=== PATIENT | female | born 1930 | race Caucasian/White ===

== ENCOUNTER 2018-03-28 02:19 | Inpatient (IN) ==
[2018-03-28 03:37] VITALS: BMI 16.9
[2018-03-28] MEDS ORDERED: ONDANSETRON 4 MG/2 ML INJECTION IVP ONE (04:46)
[2018-03-28] MEDS ORDERED: ACETAMINOPHEN 500 MG TABLET PO ONE (04:46)
--- NOTE | 2018-03-28 04:56 | History & Physical Report ---
History of Present Illness Date: 03/28/18 Chief complaint: hip pain HPI: The pt is a 88 yo who was trying to answer the phone around midnight, fell and landed on a table. She denies any LOC, but does have head trauma, small 1 cm head laceration. She denies frequency of falling. Presently no other complaints. Review of Systems All systems PM: 10-point ROS was reviewed, no additional remarkable complaints except - Constitutional Constitutional: Present: as per HPI. Absent: anorexia - Cardiovascular Cardiovascular: Present: palpitations. Absent: dyspnea on exertion, edema - Gastrointestinal Gastrointestinal: Absent: abdominal pain, diarrhea, nausea Past Medical History Medical History: Medical History (Last Updated 03/28/18 @ 04:55 by Koko Martin MD) Atrial fibrillation CHF (congestive heart failure) Osteoarthritis Valvular heart disease Family History: No Significant Family History (M- [place]) - Social History Smoking status: Never smoker Substance use type: does not use Alcohol intake: never Alcohol intake frequency: does not drink Housing: apartment Household members: none Medications Allergies Allergy/AdvReac Type Severity Reaction Status Date / Time iodine Allergy Vomiting Verified 03/28/18 04:50 Sulfa (Sulfonamide Allergy Verified 03/28/18 04:51 Antibiotics) Exam Vital Signs: Temperature 97.8 F 03/28/18 03:36 Pulse Rate 98 03/28/18 03:46 Blood Pressure 145/98 H 03/28/18 03:36 Pulse Oximetry 97 03/28/18 03:36 Height/Weight/BMI: Height 1.63 m Weight 44.6 kg Body Mass Index 16.9 - Constitutional Present: no acute distress - Routine HEENT Exam Head: Present: scalp tenderness - Routine Neck Exam Present: supple - Routine Respiratory Exam Present: CTA bilaterally - Routine Cardiovascular Exam Present: no murmur, irregular rhythm. Absent: RRR - Routine Abdominal Exam Present: soft, normoactive bowel sounds - Routine Extremities Exam Present: no edema Assessment and Plan (1) Hip fracture requiring operative repair Current visit: Yes Status: Acute (2) A-fib Current visit: Yes Status: Acute (3) CHF (congestive heart failure) Current visit: Yes Status: Acute Assessment and Plan: The pt is a transfer from [facility], will place on IVF, NPO, consulted Dr. Soria, ortho, pain controll, monitor vitals, cont home meds. will probably need inpt rehab once medically stable DVT Prophylaxis: SCD's GI Prophylaxis: Protonix Resuscitation Status: Full Code - Physician Narrative Narrative: Date: 03/28/18 Time: 045 Hospital Course Summary Disclaimer: The visit summary below is not to be considered part of the above Progress Note.
[2018-03-28] MEDS ORDERED: NS 1,000 ML IV SCH (05:00)
[2018-03-28] MEDS ORDERED: ONDANSETRON 4 MG/2 ML INJECTION IVP PRN (06:00)
[2018-03-28] MEDS ORDERED: ACETAMINOPHEN 500 MG TABLET PO PRN (06:00)
--- NOTE | 2018-03-28 08:20 | Orthopedic Consult Note ---
Orthopedic Consultation HPI - Consultation Info Consult Date: 03/29/18 Attending Physician: Mariah Hester MD - History of Present Illness Mrs. Naranjo is a pleasant 88 y/o female. She was up at midnight last night to answer the phone and fell hitting a table then floor. She denies any dizziness, lightheadedness, or CP prior to falling. She feels she was "attacked by something spiritual' which caused the fall. She does live alone, is very active and walks a mile a day. She was transferred from [facility] for surgical treatment of right hip fracture. She is a patient of Dr. Haro, recent diagnosis of Afib and is on Eliquis. HR 100-120s. Patient reports MVP and MR as well. History of pneumonia years ago and asthma. Not on inhalers. Patient does not use oxygen at home, is requiring 2LNC here, denies SOA. Review of Systems - Constitutional Constitutional: Absent: chills, fever(s), dizziness - Cardiovascular Cardiovascular: Absent: chest pain - Respiratory Respiratory: Absent: cough - Gastrointestinal Gastrointestinal: Absent: change in bowel habits, diarrhea, nausea - Musculoskeletal Musculoskeletal: Present: as per HPI PFSH Patient Stated Medical History Dental Problems Yes: implants Glaucoma Yes: right eye Cardiac Arrhythmia Yes Coronary Artery Disease Yes Hypertension Yes Valvular Heart Disease Yes Pneumonia Yes Hepatitis Yes Clinic Medical History (Last Updated 03/28/18 @ 04:55 by Koko Martin MD) Osteoarthritis (Acute Medical) - Social History Smoking status: Never smoker Substance use type: does not use Alcohol intake: never Alcohol intake frequency: does not drink Housing: apartment Household members: none Medications Home Medications Medication Instructions Recorded Confirmed Type Amlodipine 2.5 mg PO AM 03/28/18 03/28/18 History Brimonidine 0.2% Eye Drops 1 drop OP BID 03/28/18 03/28/18 History [Alphagan 0.2% Eye Drops] Digoxin 0.125 mg PO AM 03/28/18 03/28/18 History Eliquis 2.5 mg PO BID 03/28/18 03/28/18 History Fish Oil 1,000 mg Softgel 1,000 mg PO AM 03/28/18 03/28/18 History Glucosamine 1 tab PO BID 03/28/18 03/29/18 History Metoprolol Tartrate 25 mg PO BID 03/28/18 03/28/18 History Vit C/Ascorbate Calcium,Sodium 500 mg PO AM 03/28/18 03/28/18 History Aspirin 1 tab PO DAILY 03/29/18 03/29/18 History Cholecalciferol (Vitamin D3) 1 cap PO DAILY 03/29/18 03/29/18 History [Vitamin D3] Cyanocobalamin (Vitamin B-12) 500 mcg PO DAILY 03/29/18 03/29/18 History [B-12] Allergies Allergy/AdvReac Type Severity Reaction Status Date / Time iodine Allergy Vomiting Verified 03/28/18 04:50 Sulfa (Sulfonamide Allergy Verified 03/28/18 04:51 Antibiotics) Exam - Constitutional Vital Signs: Temperature 97.8 F 03/28/18 03:36 Pulse Rate 102 H 03/28/18 08:00 Respiratory Rate 16 03/28/18 08:00 Blood Pressure 161/102 H 03/28/18 08:00 Pulse Oximetry 93 03/28/18 08:00 General: cooperative, no acute distress, frail appearing Orientation: alert, oriented x3 - RLE Postoperative Appearance: neurovascullary intact to extremities, other ( Tenderness to palpation right lateral hip, compartments soft) Skin: no rashes or lesions noted Neurological: no deficits Vascular: dorsalis pedis pulse within normal limits - Labs Result Diagrams: 03/29/18 04:23 03/29/18 04:23 Abnormal lab results 03/28/18 03/28/18 03/28/18 Range/Units 05:04 05:04 05:04 Neut % (Auto) 82.2 H (33-66) % Lymph % (Auto) 11.4 L (23-45) % Neut # (Auto) 8.6 H (1.8-7.7) T/MM3 Abs Immat Gran (auto) 0.04 H (0.00-0.03) T/MM3 INR (0.92-1.18) Potassium 3.4 L (3.6-5) MEQ/L Carbon Dioxide 31 H (22-30) MEQ/L Creatinine 0.5 L (0.7-1.2) mg/dL Ur Specific [place] 1.010 L (1.015-1.025) Urine Occult Blood 1+ A (NEGATIVE) Urine RBC 3-5 H (0-3) /HPF 03/28/18 Range/Units 05:04 Neut % (Auto) (33-66) % Lymph % (Auto) (23-45) % Neut # (Auto) (1.8-7.7) T/MM3 Abs Immat Gran (auto) (0.00-0.03) T/MM3 INR 1.23 H (0.92-1.18) Potassium (3.6-5) MEQ/L Carbon Dioxide (22-30) MEQ/L Creatinine (0.7-1.2) mg/dL Ur Specific [place] (1.015-1.025) Urine Occult Blood (NEGATIVE) Urine RBC (0-3) /HPF H & H 03/28/18 Range/Units 05:04 Hgb 14.4 (12-16) GM/DL Hct 42.9 (36-46) % Coagulation 03/28/18 Range/Units 05:04 INR 1.23 H (0.92-1.18) Impression and Recommendation (1) Fracture of femoral neck, right, closed Current visit: Yes Status: Acute Dr. Soria discussed surgical option with hemiarthroplasty. Risks and complications of surgery were discussed as well. Patient's last dose of Eliquis was last night. Will post-pone surgery until tomorrow. Patient NPO after 0900 tomorrow with clear liquid breakfast. Hospital Course Summary Disclaimer: The visit summary below is not to be considered part of the above Progress Note.
--- NOTE | 2018-03-28 09:21 | Cardiology Consult Note ---
<Kayli Sanon - Last Filed: 03/29/18 09:17> History of Present Illness Consult date: 03/28/18 Requesting physician: Mariah Hester Consult reason: pre-op evaluation Chief complaint: hip fracture History of present illness: Connie is a 88 year old female patient of Dr. Haro with a history of recently diagnosed atrial fibrillation on Eliquis, CAD, HTN, mitral valve prolapse and regurgitation who was up at midnight last night to answer the phone and fell hitting a table then the floor. She is unsure why she fell. She does live alone , is very active and walks a mile a day. She was transferred from [facility] for surgical treatment of right hip fracture. Dr. Heck is consulted for evaluation of surgical risk pre-operatively and we appreciate the consult. Records obtained from Dr. Haro's office: -Echo 03/07/2018: EF 55-60%, mild LVH, mitral valve prolapse of anterior leaflet , mild mitral regurgitation, moderate tricuspid regurgitation, mildly elevated PA pressure 30-35mmHg, atrial fibrillation. -Nuclear Stress: Good exercise capacity, negative for angina, atrial fibrillation with RVR, without diagnostic ischemic changes on EKG, nonspecific ST changes are noted at baseline, normal post stress EF. -Carotid duplex:Right ICA 30% stenosis, Left ICA 20-25% stenosis She is examined in her room on the Surgical unit. She reports having the flu over the winter which has really decreased her exercise tolerance. She denies recent illness, fever, chills, cough, sore throat, chest pain, dyspnea, N/V/D. She denies lightheadedness, dizziness or syncope prior to fall. States she felt as if she were pushed down or "attacked" by something. Review of Systems - Constitutional Constitutional: Present: as per HPI - EENMT Eyes: Absent: change in vision Balance: Absent: vertigo Mouth/Throat: Present: as per HPI - Cardiovascular Cardiovascular: Absent: chest pain, syncope, dyspnea on exertion, orthopnea, edema, heart murmur Rhythm: Present: abnormal rhythm Vascular: Absent: pedal edema - Respiratory Respiratory: Present: as per HPI - Gastrointestinal Gastrointestinal: Present: as per HPI - Genitourinary Genitourinary: Absent: dysuria - Integumentary/Breasts Integumentary: Absent: rash - Neurological Neurological: Absent: dizziness - Endocrine Endocrine: Present: palpitations PFSH Patient Stated Medical History Dental Problems Yes: implants Glaucoma Yes: right eye Cardiac Arrhythmia Yes AFib diagnosed 02/17/18 Coronary Artery Disease Yes Hypertension Yes Valvular Heart Disease Yes MV prolapse/regurg Pneumonia Yes Hepatitis Yes breast cancer Yes Cystitis Yes Clinic Medical History (Last Updated 03/28/18 @ 04:55 by Koko Martin MD) Osteoarthritis (Acute Medical) Surgical History: Appendectomy 1965. cystoscopy and bladder repair. D&C x3. Lumpectomy w/radiation 1996. Tonsillectomy Family History: Heart disease (unknown- Mother and Sister) - Social History Smoking status: Never smoker Substance use type: does not use Alcohol intake: never Alcohol intake frequency: does not drink Housing: house Household members: none (3 grandchildren were staying with her at the time of her fall) Current occupational status: retired Medications Home Medications Medication Instructions Recorded Confirmed Type Amlodipine 2.5 mg PO AM 03/28/18 03/28/18 History Brimonidine 0.2% Eye Drops 1 drop OP BID 03/28/18 03/28/18 History [Alphagan 0.2% Eye Drops] Digoxin 0.125 mg PO AM 03/28/18 03/28/18 History Eliquis 2.5 mg PO BID 03/28/18 03/28/18 History Fish Oil 1,000 mg Softgel 1,000 mg PO AM 03/28/18 03/28/18 History Glucosamine 1 tab PO BID 03/28/18 03/29/18 History Metoprolol Tartrate 25 mg PO BID 03/28/18 03/28/18 History Vit C/Ascorbate Calcium,Sodium 500 mg PO AM 03/28/18 03/28/18 History Aspirin 1 tab PO DAILY 03/29/18 03/29/18 History Cholecalciferol (Vitamin D3) 1 cap PO DAILY 03/29/18 03/29/18 History [Vitamin D3] Cyanocobalamin (Vitamin B-12) 500 mcg PO DAILY 03/29/18 03/29/18 History [B-12] Allergies Allergy/AdvReac Type Severity Reaction Status Date / Time iodine Allergy Vomiting Verified 03/28/18 04:50 Sulfa (Sulfonamide Allergy Verified 03/28/18 04:51 Antibiotics) Exam Vital signs: Temperature 98.0 F 03/28/18 08:00 Pulse Rate 102 H 03/28/18 08:00 Respiratory Rate 16 03/28/18 08:00 Blood Pressure 161/102 H 03/28/18 08:00 Pulse Oximetry 93 03/28/18 08:00 - Constitutional no acute distress, cachectic, cooperative - Routine HEENT Exam Head: Present: normocephalic ENT: Present: mucous membranes dry - Routine Neck Exam Present: carotid bruit (right). Absent: JVD - Routine Chest/Breast/Axilla Exam Chest wall: Absent: tenderness - Routine Respiratory Exam Present: CTA bilaterally, diminished air movement. Absent: rales, wheezes - Routine Cardiovascular Exam Present: tachycardia, irregularly irregular - Routine Abdominal Exam Present: soft, non tender - Routine Extremities Exam Present: no edema - Routine Skin Exam Present: intact, dry, warm - Routine Neurological Exam Present: alert, oriented X3 - Routine Psychiatric Exam Present: normal affect, normal thought process Results 03/28/18 05:04 03/28/18 05:04 Coagulation 03/28/18 Range/Units 05:04 APTT 29.9 (24-36) SEC CBC 03/28/18 Range/Units 05:04 WBC 10.4 (4.5-11.0) T/MM3 RBC 4.92 (4.00-5.20) M/MM3 Hgb 14.4 (12-16) GM/DL Hct 42.9 (36-46) % Plt Count 209 (130-400) T/MM3 Neut # (Auto) 8.6 H (1.8-7.7) T/MM3 Lymph # (Auto) 1.2 (1-4.8) T/MM3 [place] # (Auto) 0.6 (0-0.8) T/MM3 Eos # (Auto) 0.0 (0-0.5) T/MM3 Baso # (Auto) 0.0 (0-0.2) T/MM3 Comprehensive Metabolic Panel 03/28/18 Range/Units 05:04 Sodium 137 (136-146) MEQ/L Potassium 3.4 L (3.6-5) MEQ/L Chloride 99 (98-107) MEQ/L Carbon Dioxide 31 H (22-30) MEQ/L BUN 13.0 (7-17) MG/DL Creatinine 0.5 L (0.7-1.2) mg/dL Glucose 108 (65-110) MG/DL Calcium 8.7 (8.4-10.2) MG/DL Intake and Output 03/27/18 03/28/18 03/28/18 22:59 06:59 14:59 Output Total 375 / 375 Balance -375 / -375 Output: Urine Amount (Catheter) 375 / 375 Other: Urine Appearance Clear Urine Color Yellow Urine Odor Normal Weight 98 lb 5.219 oz 104 lb 0.931 oz Patient Weight 03/29/18 06:59 Weight 104 lb 0.931 oz - Imaging and Cardiology Echo: pending Assessment and Plan - Assessment and Plan (1) Hip fracture requiring operative repair Problem details: Right subcapital hip fracture Current visit: Yes Status: Acute Patient had recent Nuclear stress test and echo at her 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 There was no evidence of ischemia on stress test. - She has not been having chest pain, pressure or tightness with her daily exercise. - She is a moderate risk due to past cardiac history including NM and CAD, however it is okay to proceed with planned surgical repair of fracture per ortho team and we will follow along should complications arise. (2) Atrial fibrillation with RVR Problem details: Newly diagnosed 01/2018 Current visit: Yes Status: Acute Recently diagnosed. - HR 90s-low 100s, give Metoprolol 2.5mg IV x1 for rate control - Last took Eliquis before bed last night. - holding for OR (3) Atherosclerotic heart disease of [place] coronary artery without angina pectoris Current visit: Yes Status: Chronic condition is stable. continue current therapy, risk management (4) Essential (primary) hypertension Current visit: Yes Status: Chronic continue Amlodipine post-operatively. (5) Mitral valvular prolapse Current visit: Yes Status: Chronic (6) Mitral valve regurgitation Current visit: Yes Status: Chronic - Assessment and Plan Hip fracture: Patient had recent Nuclear stress test and echo at her 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 There was no evidence of ischemia on stress test. - She has not been having chest pain, pressure or tightness with her daily exercise. - She is a moderate risk due to past cardiac history including NM and CAD, however it is okay to proceed with planned surgical repair of fracture per ortho team and we will follow along should complications arise. AFib with RVR: Recently diagnosed. - HR 90s-low 100s, give Metoprolol 2.5mg IV x1 for rate control - Last took Eliquis before bed last night. - holding for OR Thank you for the opportunity to participate in the care of this patient, we will follow along with you. Hospital Course Summary Disclaimer: The visit summary below is not to be considered part of the above Progress Note. <Binta Hecksein - Last Filed: 03/30/18 18:11> [facility] Patient Stated Medical History Cerebrovascular Accident No Paralysis No Seizures No Syncope No Dental Problems Yes: implants Glaucoma Yes: right eye Angina No Cardiac Arrhythmia Yes Congestive Heart Failure No Coronary Artery Disease Yes: previous NM Heart Murmur No Hypertension Yes Hypotension No Myocardial Infarction No Rheumatic Fever No Valvular Heart Disease Yes Other Cardiology No Asthma No Bronchitis No Chronic Obstructive Pulmonary No Disease (COPD) Pneumonia Yes Pulmonary Edema No Pulmonary Embolism No Sleep Apnea No Tuberculosis No Other Respiratory No Diabetes Mellitus Type 1 No Diabetes Mellitus Type 2 No Cirrhosis No Gastroesophageal Reflux No Disease Gastrointestinal Bleeding No Hepatitis No Hiatal Hernia No Obstructive Bowel No Ulcer No Other GI No Other Musculoskeletal No Depression No Clinic Medical History (Last Updated 03/28/18 @ 04:55 by Koko Martin MD) Atrial fibrillation with RVR (Acute Medical) Newly diagnosed 01/2018 Exam Vital signs: Temperature 98.4 F 03/30/18 15:40 Pulse Rate 66 03/30/18 15:40 Respiratory Rate 14 03/30/18 15:40 Blood Pressure 130/70 03/30/18 15:40 Pulse Oximetry 91 03/30/18 15:40 Results 03/30/18 04:19 03/30/18 04:19 CBC 03/30/18 Range/Units 04:19 WBC 10.1 (4.5-11.0) T/MM3 RBC 4.38 (4.00-5.20) M/MM3 Hgb 12.8 (12-16) GM/DL Hct 38.5 (36-46) % Plt Count 189 (130-400) T/MM3 Neut # (Auto) 7.1 (1.8-7.7) T/MM3 Lymph # (Auto) 2.0 (1-4.8) T/MM3 [place] # (Auto) 0.8 (0-0.8) T/MM3 Eos # (Auto) 0.2 (0-0.5) T/MM3 Baso # (Auto) 0.0 (0-0.2) T/MM3 Comprehensive Metabolic Panel 03/30/18 Range/Units 04:19 Sodium 135 L (136-146) MEQ/L Potassium 3.5 L (3.6-5) MEQ/L Chloride 104 (98-107) MEQ/L Carbon Dioxide 27 (22-30) MEQ/L BUN 7.0 (7-17) MG/DL Creatinine 0.4 L (0.7-1.2) mg/dL Glucose 89 (65-110) MG/DL Calcium 8.0 L (8.4-10.2) MG/DL Intake and Output 03/30/18 03/30/18 03/30/18 06:59 14:59 22:59 Intake Total 600 / 600 380 / 380 Output Total 960 / 960 Balance -360 / -360 380 / 380 Intake: IV 100 / 100 Cefazolin 1 g In Ns 100 ml @ 100 / 100 200 mls/hr IV Q8H [facility] Rx#: [id number] Oral 500 / 500 380 / 380 Output: Urine Amount (Catheter) 960 / 960 Other: Urine Appearance Clear Cloudy Urine Color Pale Yellow Urine Odor Normal Stool Color Brown Stool Consistency Soft Size of Bowel Movement Moderate # Voids 1 1 # Bowel Movements 1 Weight 46.8 kg Patient Weight 03/31/18 06:59 Weight 46.8 kg Assessment and Plan - Attestation Attestation Narrative: 03/30/18 18:06 Recommendation After examining the patient I agree with the above assessment. I am involved in the formulation of the patient's plan of care. - Assessment and Plan (1) Hip fracture requiring operative repair Problem details: Right subcapital hip fracture Current visit: Yes Status: Acute (2) Atrial fibrillation with RVR Problem details: Newly diagnosed 01/2018 Current visit: Yes Status: Acute (3) Atherosclerotic heart disease of [place] coronary artery without angina pectoris Current visit: Yes Status: Chronic (4) Essential (primary) hypertension Current visit: Yes Status: Chronic (5) Mitral valvular prolapse Current visit: Yes Status: Chronic (6) Mitral valve regurgitation Current visit: Yes Status: Chronic Hospital Course Summary Disclaimer: The visit summary below is not to be considered part of the above Progress Note.
[2018-03-28] MEDS ORDERED: METOPROLOL 5mg/5ml INJECTION IVP ONE (10:02)
--- NOTE | 2018-03-28 10:11 | History & Physical Report ---
History of Present Illness Date: 03/28/18 Chief complaint: R hip fracture HPI: (Pt admitted under telemedicine doctor - see his H&P for further info) The pt is a 88 yo female who got up out of bed to answer the phone around midnight, fell and landed on a table. She denies any LOC, but does have head trauma, small 1 cm head laceration. She denies frequency of falling. She states she felt like she was pushed backward, doesn't feel like she tripped. Didn't feel lightheaded or dizziness. Feels like it was something "spiritual" that pushed her. (Pt spent her life doing [place] and has a very strong belief in "the Lord, " which she frequently talks about.) She is on Eliquis, Metoprolol and dig for atrial fibrillation and amlodipine for HTN. She states she used to walk a mile every day prior to this winter, but she had influenza, and since then, she has never regained her energy. She did say she felt very well yesterday and accomplished a lot. Didn't take melatonin prior to hs which she sometimes does. Her family is currently visiting from [place] and they came to check on her after they heard her fall. EMS was called and pt was transported to [facility] and then [place] [facility] [place] Review of Systems All systems PM: 10-point ROS was reviewed, no additional remarkable complaints except (exudate on tongue (ongoing), dry mouth, R hip pain, chronic LE edema) Past Medical History Medical History: Medical History (Last Updated 03/28/18 @ 04:55 by Koko Martin MD) Atrial fibrillation with RVR Newly diagnosed 01/2018 Medical History Updates: H/o [place] (age 60's), HTN, h/o mild asthma, breast cancer , MVP, mild mitral regurgitation Surgical History: Appendectomy 1965. cystoscopy and bladder repair. D&C x3. L Lumpectomy w/radiation 1996. Tonsillectomy Family History: Father- allergies. Drowned in the [place] (pulled out into the current). Mother - a fib. of old age. 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 Yu - PCP ([place]) Medications Home Medications Medication Instructions Recorded Confirmed Type Amlodipine 2.5 mg PO AM 03/28/18 03/28/18 History Brimonidine 0.2% Eye Drops 1 drop OP BID 03/28/18 03/28/18 History [Alphagan 0.2% Eye Drops] Digoxin 0.125 mg PO AM 03/28/18 03/28/18 History Eliquis 2.5 mg PO BID 03/28/18 03/28/18 History Fish Oil 1,000 mg Softgel 1,000 mg PO AM 03/28/18 03/28/18 History Glucosamine PO BID 03/28/18 History Metoprolol Tartrate 25 mg PO BID 03/28/18 03/28/18 History Vit C/Ascorbate Calcium,Sodium 500 mg PO AM 03/28/18 03/28/18 History Allergies Allergy/AdvReac Type Severity Reaction Status Date / Time iodine Allergy Vomiting Verified 03/28/18 04:50 Sulfa (Sulfonamide Allergy Verified 03/28/18 04:51 Antibiotics) Exam Vital Signs: Temperature 98.0 F 03/28/18 08:00 Pulse Rate 102 H 03/28/18 08:00 Respiratory Rate 16 03/28/18 08:00 Blood Pressure 161/102 H 03/28/18 08:00 Pulse Oximetry 93 03/28/18 08:00 Height/Weight/BMI: Height 1.63 m Weight 47.2 kg Body Mass Index 16.9 - Constitutional Present: no acute distress, well developed, thin - Routine HEENT Exam Head: Present: normocephalic, atraumatic Eye: Present: EOMI, PERRL ENT: Present: mucous membranes dry, oropharynx clear Comments: brown exudate on tongue and slight exudate on hard palate as well. Very dry lips. - Routine Neck Exam Present: supple. Absent: lymphadenopathy, thyromegaly - Routine Respiratory Exam Present: CTA bilaterally. Absent: dyspnea, wheezes - Routine Cardiovascular Exam Present: no murmur, tachycardia, irregular rhythm - Routine Abdominal Exam Present: soft, normoactive bowel sounds. Absent: tenderness, distended - Routine Extremities Exam Present: edema (2+ b/l R>L), normal capillary refill - Routine Skin Exam Present: dry, warm - Routine Neurological Exam Present: alert, CN II-XII intact, normal speech - Routine Psychiatric Exam Present: normal affect, cooperative Results - Labs CBC & Chem 7: 03/28/18 05:04 03/28/18 05:04 Assessment and Plan (1) Hip fracture requiring operative repair Problem details: Right subcapital hip fracture Current visit: Yes Status: Acute (2) A-fib Current visit: Yes Status: Acute (3) CHF (congestive heart failure) Current visit: Yes Status: Acute Assessment and Plan: Assessment R hip fracture Chronic atrial fibrillation-on Eliquis HTN Osteoarthritis Mild elevation of TSH on admission Mild hypokalemia on admission (3.4) Thrush vs bacterial overgrowth vs black hairy tongue vs other - (pt declines tx at this time) Plan Admit, IP for hip repair by Dr. Soria. Stay expected to exceed 2 overnights given surgical intervention and her age and comorbidities. Dr Soria planning for surgery today at noon. Cardiology consult for surgical clearance. Discussed with Kayli Sanon APRN who reviewed recent cardiac testing from Dr. Haro's office. She states pt is cleared from a cardiac standpoint. Patient has Hernandez cath. UA - no infection. IVF's - NS at 75ml/hr. All home meds currently on hold. F-u w/ PCP re: TSH. Will follow potassium level. Most recent dose of Eliquis was last evening. BP and pulse are elevated. Metoprolol 2.5mg IV ordered by cardiology. SCD's for VTE ppx Pt requests to be a full code. Names her son, Dilshad, and her neighbors, Steve and Deena Davalos, as alternative decision makers. PCP - Dr. Yu in [place]. DVT Prophylaxis: SCD's Resuscitation Status: Full Code - Physician Narrative Physician: Mariah Hester MD Narrative: Date: 03/28/18 Time: 7314 I have independently evaluated and examined this patient. I reviewed the chart, the patient's history, and the PHOTOGRAPHER STILL/PA's documented findings as above. We discussed and formulated the assessment and plan as above with additions as below: Mrs. Naranjo was seen this morning; she transferred from the [place] emergency room where a right subcapital hip fracture was identified after the patient fell getting up to answer the phone a little after midnight. At the time of my assessment she was complaining of pain in the left lateral chest indicating that she has pain in her chest occasionally. She denied dyspnea, pleuritic pain, injury to her left chest wall with fall, stabbing pain, pressure in her chest, reflux, or heartburn. She indicated she thinks she may have had a mild heart attack many years ago when she was working in [place] ( patient seems slightly confused at the time-possibly pain medication induced). Patient attributes chest wall pain to prior lumpectomy. Recent echocardiogram and nuclear stress test of 03/09/18 reviewed-no evidence of ischemia on study. New -onset atrial fibrillation/flutter in January, known hypertension, history MVP and mild MR/TR. History of breast cancer treated with lumpectomy. Slightly confused elderly female, cachectic Respirations nonlabored, good airflow, breath sounds clear anteriorly Irregular cardiac rhythm, S1-S2 Tender to palpation lateral to the right breast. Sensation intact 4 extremities, pusher runner symmetric, dorsiflex/plantar flexes at ankles bilaterally. 2 EKGs reviewed by myself-first reveals atrial flutter with rate of approximately [address]/T changes; 2nd was obtained after onset of chest pain and again revealed atrial fibrillation/flutter with rate 72 and waveforms were unchanged. Chest x-ray reviewed by myself demonstrating borderline cardiomegaly but no acute pulmonary changes, possibly some scarring in the lower lungs. From [place] reviewed-sodium 131; repeat sodium on arrival in no 137, potassium 3.4. INR 1.23 (on Eliquis). Hip fracture, right Atrial fibrillation/flutter Atypical chest pain, chest wall History of breast cancer Stable to proceed with surgery recognizing that she is on Eliquis and had a dose yesterday evening. This was discussed with Dr. Soria and increased risk of bleeding if proceed with surgery today is being discussed with family before timing of surgery is definitively planned. Replace potassium IV. Hospital Course Summary Disclaimer: The visit summary below is not to be considered part of the above Progress Note. Hospital Course: 03/28/18 Admit, IP for hip repair by Dr. Soria. Stay expected to exceed 2 overnights given surgical intervention and her age and comorbidities. Dr Soria planning for surgery today at noon. Cardiology consult for surgical clearance. Discussed with Kayli Sanon APRN who reviewed recent cardiac testing from Dr. Haro's office. She states pt is cleared from a cardiac standpoint. Patient has Hernandez cath. UA - no infection. IVF's - NS at 75ml/hr. All home meds currently on hold. Most recent dose of Eliquis was last evening. F-u w/ PCP re: TSH. Will follow K+ level/replace IV. BP and pulse are elevated. Metoprolol 2.5mg IV ordered by cardiology. SCD's for VTE ppx Pt requests to be a full code. Names her son, Dilshad, and her neighbors, Steve and Deena Davalos, as alternative decision makers. PCP - Dr. Yu in [place].
--- NOTE | 2018-03-28 10:39 | Progress Note ---
- Date 03/28/18 Objective Vital signs: Temperature 98.0 F 03/28/18 08:00 Pulse Rate 102 H 03/28/18 08:00 Respiratory Rate 16 03/28/18 08:00 Blood Pressure 161/102 H 03/28/18 08:00 Pulse Oximetry 93 03/28/18 08:00 Height/Weight/BMI: Height 1.63 m Weight 47.2 kg Body Mass Index 16.9 - Constitutional Present: no acute distress, well developed, thin - Routine HEENT Exam Head: Present: normocephalic, atraumatic Comments: brown coating on tongue with slight brownish exudate on roof of mouth - Routine Respiratory Exam Present: CTA bilaterally. Absent: wheezes - Routine Cardiovascular Exam Present: no murmur, tachycardia, irregularly irregular - Routine Abdominal Exam Present: soft, non distended, non tender - Routine Extremities Exam Present: edema (2+ b/l R>L), normal capillary refill - Routine Skin Exam Present: dry, warm - Routine Neurological Exam Present: alert, normal speech. Absent: altered mental status, facial asymmetry - Routine Lymphatic Exam Lymphatic: Absent: adenopathy - Routine Psychiatric Exam Present: normal affect, cooperative Results - Labs CBC & Chem 7: 03/28/18 05:04 03/28/18 05:04 Assessment and Plan (1) Hip fracture requiring operative repair Current visit: Yes Status: Acute (2) A-fib Current visit: Yes Status: Acute (3) CHF (congestive heart failure) Current visit: Yes Status: Acute Assessment and Plan: Assessment L hip fracture Chronic atrial fibrillation-on Eliquis HTN Osteoarthritis Mild elevation of TSH on admission Mild hypokalemia on admission (3.4) Thrush vs bacterial overgrowth vs black hairy tongue vs other - (pt declines tx at this time) Plan Admit, IP for hip repair by Dr. Soria. Stay expected to exceed 2 overnights given surgical intervention and her age and comorbidities. Dr Soria planning for surgery today at noon. Cardiology consult for surgical clearance. Discussed with Kayli Sanon APRN who reviewed recent cardiac testing from Dr. Haro's office. She states pt is cleared from a cardiac standpoint. Patient has Hernandez cath. UA - no infection. IVF's - NS at 75ml/hr. All home meds currently on hold. Most recent dose of Eliquis was last evening. BP and pulse are elevated. Metoprolol 2.5mg IV ordered by cardiology. SCD's for VTE ppx Pt requests to be a full code. Names her son, Dilshad, and her neighbors, Dima Davalos, as alternative decision makers. PCP - Dr. Yu in [place]. - Physician Narrative Narrative: Date: 03/28/18 Time: 1036 Hospital Course Summary Disclaimer: The visit summary below is not to be considered part of the above Progress Note. Hospital Course: 03/28/18 Admit, IP for hip repair by Dr. Soria. Stay expected to exceed 2 overnights given surgical intervention and her age and comorbidities. Dr Soria planning for surgery today at noon. Cardiology consult for surgical clearance. Discussed with Kayli Sanon APRN who reviewed recent cardiac testing from Dr. Haro's office. She states pt is cleared from a cardiac standpoint. Patient has Hernandez cath. UA - no infection. IVF's - NS at 75ml/hr. All home meds currently on hold. Most recent dose of Eliquis was last evening. BP and pulse are elevated. Metoprolol 2.5mg IV ordered by cardiology. SCD's for VTE ppx Pt requests to be a full code. Names her son, Dilshad, and her neighbors, Dima Davalos, as alternative decision makers. PCP - Dr. Yu in [place].
--- NOTE | 2018-03-28 11:37 | XRay Report ---
Indication: PAIN XR chest 1V: Comparison: None Technique: AP portable semiupright chest Findings: Heart size is at the upper range of normal without central vascular congestion. Mild chronic appearing lung changes are identified. No significant pleural effusions or focal parenchymal pulmonary consolidation seen. No acute bony findings identified. Impression: Mild cardiac prominence without overt heart failure and no significant acute pulmonary findings. .
--- NOTE | 2018-03-28 14:53 | Echocardiogram ---
DATE OF PROCEDURE: March 28, 2018 REFERRING PHYSICIAN: Dr. Wale Maxwell This is a two-dimensional echo with spectral Doppler, color-flow and M-mode. It was obtained in a patient with atrial fibrillation. Left atrial dimension is normal. Left ventricle end-diastolic dimension is normal. Left ventricle wall thickness is normal. LV systolic function is normal with ejection fraction of about 60%. Right atrium is dilated. Right ventricle is normal. Aortic root dimension is normal. Mitral annulus is calcified. Mitral valve leaflets are sclerotic with no stenosis. Mild bileaflet mitral valve prolapse is present. Mild mitral regurgitation is present. Aortic valve shows fibrocalcific changes with no stenosis or insufficiency. Tricuspid valve shows moderate tricuspid regurgitation with mild pulmonary hypertension with estimated pulmonary artery systolic pressure of 37. Pulmonary valve shows mild pulmonary insufficiency. There is no pericardial effusion. IMPRESSION 1. Normal LV systolic function with ejection fraction of 60%. 2. Mitral annulus calcification with mitral sclerosis, mild mitral regurgitation, and mild bileaflet mitral valve prolapse. 3. Aortic sclerosis. 4. Moderate tricuspid regurgitation with mild pulmonary hypertension with estimated pulmonary artery systolic pressure of 37. 5. Mild pulmonary insufficiency. 6. Right atrial dilation. MTDD
[2018-03-28] MEDS ORDERED: DIGOXIN 0.125 MG PO SCH (15:00)
[2018-03-28] MEDS ORDERED: AMLODIPINE 2.5 MG PO SCH (15:00)
[2018-03-28] MEDS: NS with KCL 20 mEq 1,000 ML IV SCH (15:32)
[2018-03-28] MEDS: MORPHINE SULFATE 10mg/ml VIAL IVP PRN (16:35)
[2018-03-28] MEDS: BRIMONIDINE 0.2% OP SCH (20:16)
[2018-03-28] MEDS: EYE OP SCH (20:16)
[2018-03-28] MEDS ORDERED: METOPROLOL TARTRATE 25 MG PO SCH (21:00)
[2018-03-28] MEDS ORDERED: FALL RISK - PHARMACY CONSULT MC ONE (23:05)
[2018-03-29] MEDS: MORPHINE SULFATE 10mg/ml VIAL IVP PRN (00:18)
[2018-03-29] MEDS: NS with KCL 20 mEq 1,000 ML IV SCH (04:35)
[2018-03-29] MEDS: DIGOXIN 125 MCG TABLET PO SCH (08:10)
[2018-03-29] MEDS: EYE OP SCH ×2 (08:10→20:39)
[2018-03-29] MEDS: BRIMONIDINE 0.2% OP SCH ×2 (08:10→20:39)
[2018-03-29] MEDS ORDERED: AMLODIPINE 2.5 MG PO SCH ×2 (09:00)
--- NOTE | 2018-03-29 09:22 | Cardiology Progress Note ---
<Kayli Sanon M - Last Filed: 03/30/18 15:20> Subjective Principal diagnosis: hip fracture Interval history: Connie is seen in follow up for A Fib RVR and pre-op clearance for hip fracture repair. She is awake in her bed this morning. She denies chest pain or pressure , dyspnea, dizziness, N/V. Exam Vital signs: Temperature 97.3 F 03/29/18 07:06 Pulse Rate 80 03/29/18 08:10 Respiratory Rate 12 03/29/18 07:06 Blood Pressure 155/80 H 03/29/18 07:06 Pulse Oximetry 94 03/29/18 07:06 Inpatient Medications: Generic Name Dose Route Start Last Admin Trade Name Freq PRN Reason Stop Dose Admin Acetaminophen 500 - 1,000 mg 03/28/18 06:00 03/29/18 05:54 Tylenol PO 1,000 mg Q6H PRN Administration Discomfort Amlodipine Besylate 5 mg 03/29/18 09:00 Norvasc PO DAILY [facility] Brimonidine Tartrate 1 drop 03/28/18 21:00 03/29/18 08:10 Alphagan 0.2% Eye Drops OP 1 drop BID [facility] Administration Digoxin 125 mcg 03/29/18 09:00 03/29/18 08:10 Lanoxin PO 125 mcg DAILY [facility] Administration Potassium Chloride/Sodium Chloride 1,000 mls @ 75 mls/hr 03/28/18 15:00 03/29 04:35 Ns With Kcl 20 Meq Premix IV 75 mls/hr .[id number] [facility] Administration Metoprolol Tartrate 25 mg 03/28/18 17:30 03/29/18 08:10 Lopressor PO 25 mg BIDWM [facility] Administration Morphine Sulfate 2 - 10 mg 03/28/18 04:46 03/29/18 00:18 Morphine Sulfate Vial IVP 2 mg Q1H PRN Administration Pain Ondansetron HCl 4 mg 03/28/18 06:00 Zofran IVP Q4H PRN Nausea &/or vomiting Discontinued Medications Generic Name Dose Route Start Last Admin Trade Name Freq PRN Reason Stop Dose Admin Acetaminophen 1,000 mg 03/28/18 04:46 03/28/18 07:12 Tylenol PO 03/28/18 04:47 Not Given PREOP ONE Amlodipine Besylate 2.5 mg 03/29/18 09:00 03/29/18 08:10 Norvasc PO 2.5 mg DAILY [facility] Administration Sodium Chloride 1,000 mls @ 75 mls/hr 03/28/18 05:00 03/28/18 15:32 Normal Saline IV Infused .[id number] [facility] Infusion Metoprolol Tartrate 2.5 mg 03/28/18 10:02 03/28/18 10:34 Lopressor IVP 03/28/18 10:03 2.5 mg ONCE ONE Administration Non-Formulary Medication 2.5 mg 03/28/18 15:00 Amlodipine PO AM [facility] Non-Formulary Medication 25 mg 03/28/18 21:00 Metoprolol Tartrate PO BID [facility] Non-Formulary Medication 0.125 mg 03/28/18 15:00 Digoxin PO AM [facility] Ondansetron HCl 4 mg 03/28/18 04:46 03/28/18 07:12 Zofran IVP 03/28/18 04:47 Not Given PREOP ONE Pharmacy Consult 1 each 03/28/18 23:05 Pharmacy Consult - Fall Risk 03/28/18 23:06 ONE TIME ONE - Constitutional no acute distress, cachectic, cooperative - Routine HEENT Exam Head: Present: normocephalic ENT: Present: mucous membranes moist - Routine Neck Exam Present: carotid bruit (right). Absent: JVD - Routine Chest/Breast/Axilla Exam Chest wall: Absent: tenderness - Routine Respiratory Exam Present: diminished air movement. Absent: dyspnea - Routine Cardiovascular Exam Present: no murmur, irregular rhythm - Routine Abdominal Exam Present: soft, non tender - Routine Extremities Exam Present: no edema - Routine Skin Exam Present: intact, dry, warm - Routine Neurological Exam Present: alert, oriented X3 - Routine Psychiatric Exam Present: normal affect, normal thought process - Urinary Catheter Management 2-way Urethral Cath placed during this visit: no Results 03/29/18 04:23 03/29/18 04:23 CBC 03/29/18 Range/Units 04:23 WBC 8.4 (4.5-11.0) T/MM3 RBC 4.79 (4.00-5.20) M/MM3 Hgb 13.8 (12-16) GM/DL Hct 42.3 (36-46) % Plt Count 199 (130-400) T/MM3 Neut # (Auto) 6.0 (1.8-7.7) T/MM3 Lymph # (Auto) 1.5 (1-4.8) T/MM3 [place] # (Auto) 0.7 (0-0.8) T/MM3 Eos # (Auto) 0.1 (0-0.5) T/MM3 Baso # (Auto) 0.0 (0-0.2) T/MM3 Comprehensive Metabolic Panel 03/29/18 Range/Units 04:23 Sodium 135 L (136-146) MEQ/L Potassium 3.7 (3.6-5) MEQ/L Chloride 101 (98-107) MEQ/L Carbon Dioxide 28 (22-30) MEQ/L BUN 10.0 (7-17) MG/DL Creatinine 0.5 L (0.7-1.2) mg/dL Glucose 88 (65-110) MG/DL Calcium 8.1 L (8.4-10.2) MG/DL Albumin 3.1 L (3.5-5.0) g/dL Intake and Output 03/28/18 03/29/18 03/29/18 22:59 06:59 14:59 Intake Total 821.25 / 821.25 1778.75 / 1778.75 360 / 360 Output Total 900 / 900 325 / 325 450 / 450 Balance -78.75 / -78.75 1453.75 / 1453.75 -90 / -90 Intake: IV 771.25 / 771.25 978.75 / 978.75 NS with KCL 20 mEq 1,000 ml @ 978.75 / 978.75 75 mls/hr IV .[id number] [facility] Rx#: [id number] Ns 1,000 ml @ 75 mls/hr IV . 771.25 / 771.25 [id number] [facility] Rx#:[id number] Oral 50 / 50 800 / 800 360 / 360 Output: Urine Amount (Catheter) 900 / 900 325 / 325 450 / 450 Other: Urine Appearance Clear Clear Clear Urine Color Yellow Dark Yellow Yellow Urine Odor Normal Normal Normal Weight 97 lb 7.109 oz Patient Weight 03/30/18 06:59 Weight 97 lb 7.109 oz - Imaging and Cardiology Imaging & Cardiology Narrative: Date of Exam: 03/28/18 Ordering Provider: Mariah Hester MD Type of Exam(s): XR chest 1V Reason for Exam(s): PAIN Indication: PAIN XR chest 1V: Comparison: None Technique: AP portable semiupright chest Findings: Heart size is at the upper range of normal without central vascular congestion. Mild chronic appearing lung changes are identified. No significant pleural effusions or focal parenchymal pulmonary consolidation seen. No acute bony findings identified. Impression: Mild cardiac prominence without overt heart failure and no significant acute pulmonary findings. . 03/29/18 09:32 03/29/18 09:32 Date of Exam: 03/28/18 Type of Exam(s): US echo doppler complete DATE OF PROCEDURE: March 28, 2018 REFERRING PHYSICIAN: Dr. Wlae Maxwell This is a two-dimensional echo with spectral Doppler, color-flow and M-mode. It was obtained in a patient with atrial fibrillation. Left atrial dimension is normal. Left ventricle end-diastolic dimension is normal. Left ventricle wall thickness is normal. LV systolic function is normal with ejection fraction of about 60%. Right atrium is dilated. Right ventricle is normal. Aortic root dimension is normal. Mitral annulus is calcified. Mitral valve leaflets are sclerotic with no stenosis. Mild bileaflet mitral valve prolapse is present. Mild mitral regurgitation is present. Aortic valve shows fibrocalcific changes with no stenosis or insufficiency. Tricuspid valve shows moderate tricuspid regurgitation with mild pulmonary hypertension with estimated pulmonary artery systolic pressure of 37. Pulmonary valve shows mild pulmonary insufficiency. There is no pericardial effusion. IMPRESSION 1. Normal LV systolic function with ejection fraction of 60%. 2. Mitral annulus calcification with mitral sclerosis, mild mitral regurgitation, and mild bileaflet mitral valve prolapse. 3. Aortic sclerosis. 4. Moderate tricuspid regurgitation with mild pulmonary hypertension with estimated pulmonary artery systolic pressure of 37. 5. Mild pulmonary insufficiency. 6. Right atrial dilation. Assessment and Plan - Assessment and Plan (1) Hip fracture requiring operative repair Problem details: Right subcapital hip fracture Current visit: Yes Status: Acute (2) Atrial fibrillation with RVR Problem details: Newly diagnosed 01/2018 Current visit: Yes Status: Acute (3) Atherosclerotic heart disease of [place] coronary artery without angina pectoris Current visit: Yes Status: Chronic (4) Essential (primary) hypertension Current visit: Yes Status: Chronic (5) Mitral valvular prolapse Current visit: Yes Status: Chronic (6) Mitral valve regurgitation Current visit: Yes Status: Chronic - Assessment and Plan 03/28/18 Hip fracture requiring operative repair Current visit: Yes Status: Acute - Patient had recent Nuclear stress test and echo at her optometric coordinator's office. There was no evidence of ischemia on stress test. - She has not been having chest pain, pressure or tightness with her daily exercise. - She is a moderate risk due to past cardiac history including SC and CAD, however it is okay to proceed with planned surgical repair of fracture per ortho team and we will follow along should complications arise. Atrial fibrillation with RVR Problem details: Newly diagnosed 01/2018 Current visit: Yes Status: Acute - Recently diagnosed. - HR 90s-low 100s, give Metoprolol 2.5mg IV x1 for rate control - Last took Eliquis before bed last night. - holding for OR Atherosclerotic heart disease of [place] coronary artery without angina pectoris Current visit: Yes Status: Chronic - condition is stable. continue current therapy, risk management Essential (primary) hypertension Current visit: Yes Status: Chronic - continue Amlodipine post-operatively. Mitral valvular prolapse Current visit: Yes Status: Chronic Mitral valve regurgitation Current visit: Yes Status: Chronic 03/29/18 Increase Amlodipine to 5mg for better BP control, give additional 2.5mg now please - Dig level Hospital Course Summary Disclaimer: The visit summary below is not to be considered part of the above Progress Note. Hospital Course: 03/28/18 Admit, IP for hip repair by Dr. Soria. Stay expected to exceed 2 overnights given surgical intervention and her age and comorbidities. Dr Soria planning for surgery today at noon. Cardiology consult for surgical clearance. Discussed with Kayli Sanon APRN who reviewed recent cardiac testing from Dr. Haro's office. She states pt is cleared from a cardiac standpoint. Patient has Hernandez cath. UA - no infection. IVF's - NS at 75ml/hr. All home meds currently on hold. Most recent dose of Eliquis was last evening. F-u w/ PCP re: TSH. Will follow K+ level/replace IV. BP and pulse are elevated. Metoprolol 2.5mg IV ordered by cardiology. SCD's for VTE ppx Pt requests to be a full code. Names her son, Dilshad, and her neighbors, Steve and Deena Davalos, as alternative decision makers. PCP - Dr. Yu in [place]. <Kendall Heck - Last Filed: 03/30/18 18:15> Exam Vital signs: Temperature 98.4 F 03/30/18 15:40 Pulse Rate 66 03/30/18 15:40 Respiratory Rate 14 03/30/18 15:40 Blood Pressure 130/70 03/30/18 15:40 Pulse Oximetry 91 03/30/18 15:40 Inpatient Medications: Generic Name Dose Route Start Last Admin Trade Name Freq PRN Reason Stop Dose Admin Acetaminophen 500 - 1,000 mg 03/28/18 06:00 03/29/18 05:54 Tylenol PO 1,000 mg Q6H PRN Administration Discomfort Hydrocodone Bitart/Acetaminophen 1 - 2 tab 03/29/18 17:05 03/30/18 08:16 [place] 5/325 PO 1 tab Q6H PRN Administration Pain Amlodipine Besylate 5 mg 03/30/18 09:00 03/30/18 08:14 Norvasc PO 5 mg DAILY [facility] Administration Apixaban 2.5 mg 03/29/18 21:00 03/30/18 08:15 Eliquis PO 2.5 mg BID [facility] Administration Aspirin 325 mg 03/30/18 09:00 03/30/18 08:10 Asa PO 325 mg DAILY [facility] Administration Brimonidine Tartrate 1 drop 03/28/18 21:00 03/30/18 08:09 Alphagan 0.2% Eye Drops OP 1 drop BID [facility] Administration Digoxin 125 mcg 03/29/18 09:00 03/30/18 08:10 Lanoxin PO 125 mcg DAILY [facility] Administration Sodium Chloride 1,000 mls @ 50 mls/hr 03/29/18 14:30 03/30/18 03:56 Normal Saline IV 50 mls/hr .Q20H [facility] Administration Isopropyl Alcohol 1 each 03/29/18 17:05 03/30/18 17:40 Nozin Nasal Swab MARIANNE 1 each Q8H [facility] Administration Magnesium Hydroxide 30 ml 03/29/18 17:05 Mom PO DAILY PRN Constipation Metoprolol Tartrate 25 mg 03/28/18 17:30 03/30/18 17:40 Lopressor PO 25 mg BIDWM [facility] Administration Morphine Sulfate 2 - 10 mg 03/28/18 04:46 03/29/18 00:18 Morphine Sulfate Vial IVP 2 mg Q1H PRN Administration Pain Ondansetron HCl 4 mg 03/28/18 06:00 Zofran IVP Q4H PRN Nausea &/or vomiting Polyethylene Glycol 17 gm 03/30/18 09:00 03/30/18 08:08 Miralax PO 17 gm DAILY [facility] Administration Senna/Docusate Sodium 2 tab 03/29/18 21:00 03/30/18 08:10 Senna Plus Tablet PO 2 tab BID [facility] Administration Discontinued Medications Generic Name Dose Route Start Last Admin Trade Name Freq PRN Reason Stop Dose Admin Acetaminophen 1,000 mg 03/28/18 04:46 03/28/18 07:12 Tylenol PO 03/28/18 04:47 Not Given PREOP ONE Amlodipine Besylate 2.5 mg 03/29/18 09:00 03/29/18 08:10 Norvasc PO 2.5 mg DAILY [facility] Administration Amlodipine Besylate 5 mg 03/29/18 09:00 03/29/18 09:25 Norvasc PO Not Given DAILY [facility] Amlodipine Besylate 2.5 mg 03/29/18 09:30 03/29/18 10:11 Norvasc PO 03/29/18 09:31 2.5 mg O ONE Administration Cefazolin Sodium 1 g 03/29/18 15:00 03/29/18 15:20 Kefzol 1 Gm Vial IVP 03/29/18 15:01 1 g PREOP ONE Administration Sodium Chloride 1,000 mls @ 75 mls/hr 03/28/18 05:00 03/28/18 15:32 Normal Saline IV Infused .[id number] [facility] Infusion Potassium Chloride/Sodium Chloride 1,000 mls @ 75 mls/hr 03/28/18 15:00 03/29 17:12 Ns With Kcl 20 Meq Premix IV Infused .[id number] [facility] Infusion Cefazolin Sodium 1 g/ Sodium 100 mls @ 200 mls/hr 03/29/18 23:30 03/30/18 07: 28 Chloride IV 03/30/18 07:59 200 mls/hr Q8H [facility] Administration Isopropyl Alcohol 1 each 03/29/18 17:05 03/29/18 17:22 Nozin Nasal Swab MARIANNE 03/29/18 17:06 1 each O ONE Administration Metoprolol Tartrate 2.5 mg 03/28/18 10:02 03/28/18 10:34 Lopressor IVP 03/28/18 10:03 2.5 mg ONCE ONE Administration Metoprolol Tartrate 2.5 mg 03/29/18 18:14 03/29/18 18:22 Lopressor IVP 03/29/18 18:15 2.5 mg ONCE ONE Administration Miscellaneous Medication 60 ml 03/29/18 15:29 03/29/18 15:29 Lido1%/Bupiv 0.25%-Epi Mix ID 03/29/18 15:30 60 ml O ONE Administration Non-Formulary Medication 2.5 mg 03/28/18 15:00 Amlodipine PO AM [facility] Non-Formulary Medication 25 mg 03/28/18 21:00 Metoprolol Tartrate PO BID [facility] Non-Formulary Medication 0.125 mg 03/28/18 15:00 Digoxin PO AM [facility] Non-Formulary Medication 2.5 mg 03/29/18 21:00 Eliquis PO BID [facility] Ondansetron HCl 4 mg 03/28/18 04:46 03/28/18 07:12 Zofran IVP 03/28/18 04:47 Not Given PREOP ONE Pharmacy Consult 1 each 03/28/18 23:05 Pharmacy Consult - Fall Risk 03/28/18 23:06 ONE TIME ONE Potassium Chloride 20 meq 03/30/18 08:51 03/30/18 11:59 K-Dur 20 Meq Tablet PO 03/30/18 08:52 20 meq O ONE Administration Senna/Docusate Sodium 1 tab 03/29/18 17:05 Senna Plus Tablet PO BID PRN Constipation Vancomycin HCl 1,000 mg 03/29/18 15:56 03/29/18 16:00 Vancocin IAR 03/29/18 15:57 1,000 mg O ONE Administration - Urinary Catheter Management 2-way Urethral Cath placed during this visit: no Results 03/30/18 04:19 03/30/18 04:19 CBC 03/30/18 Range/Units 04:19 WBC 10.1 (4.5-11.0) T/MM3 RBC 4.38 (4.00-5.20) M/MM3 Hgb 12.8 (12-16) GM/DL Hct 38.5 (36-46) % Plt Count 189 (130-400) T/MM3 Neut # (Auto) 7.1 (1.8-7.7) T/MM3 Lymph # (Auto) 2.0 (1-4.8) T/MM3 [place] # (Auto) 0.8 (0-0.8) T/MM3 Eos # (Auto) 0.2 (0-0.5) T/MM3 Baso # (Auto) 0.0 (0-0.2) T/MM3 Comprehensive Metabolic Panel 03/30/18 Range/Units 04:19 Sodium 135 L (136-146) MEQ/L Potassium 3.5 L (3.6-5) MEQ/L Chloride 104 (98-107) MEQ/L Carbon Dioxide 27 (22-30) MEQ/L BUN 7.0 (7-17) MG/DL Creatinine 0.4 L (0.7-1.2) mg/dL Glucose 89 (65-110) MG/DL Calcium 8.0 L (8.4-10.2) MG/DL Intake and Output 03/30/18 03/30/18 03/30/18 06:59 14:59 22:59 Intake Total 600 / 600 380 / 380 Output Total 960 / 960 Balance -360 / -360 380 / 380 Intake: IV 100 / 100 Cefazolin 1 g In Ns 100 ml @ 100 / 100 200 mls/hr IV Q8H [facility] Rx#: [id number] Oral 500 / 500 380 / 380 Output: Urine Amount (Catheter) 960 / 960 Other: Urine Appearance Clear Cloudy Urine Color Pale Yellow Urine Odor Normal Stool Color Brown Stool Consistency Soft Size of Bowel Movement Moderate # Voids 1 1 # Bowel Movements 1 Weight 46.8 kg Patient Weight 03/31/18 06:59 Weight 46.8 kg Assessment and Plan - Assessment and Plan (1) Hip fracture requiring operative repair Problem details: Right subcapital hip fracture Current visit: Yes Status: Acute (2) Atrial fibrillation with RVR Problem details: Newly diagnosed 01/2018 Current visit: Yes Status: Acute (3) Atherosclerotic heart disease of [place] coronary artery without angina pectoris Current visit: Yes Status: Chronic (4) Essential (primary) hypertension Current visit: Yes Status: Chronic (5) Mitral valvular prolapse Current visit: Yes Status: Chronic (6) Mitral valve regurgitation Current visit: Yes Status: Chronic - Attestation Attestation Narrative: 03/30/18 18:15 Recommendation After examining the patient I agree with the above assessment. I am involved in the formulation of the patient's plan of care. Hospital Course Summary Disclaimer: The visit summary below is not to be considered part of the above Progress Note.
[2018-03-29] MEDS ORDERED: AMLODIPINE 2.5 MG TABLET PO ONE (09:30)
--- NOTE | 2018-03-29 09:58 | Progress Note ---
- Date 03/29/18 Subjective: F/U: right hip fracture, a-fib with RVR, MVP. Connie is seen this morning while resting in bed. She reports that her pain is well controlled unless she moves. She denies any chest pain, shortness of breath, abdominal pain, nausea, vomiting or diarrhea. She was allowed clear liquids this morning but is now NPO in anticipation of surgical repair to her right hip later this afternoon with Dr. Soria. She was seen by Dr. Heck for her a-fib with RVR which was present on admission and has been cleared by cardiology for her surgery. Prior medical records from her exercise planner were reviewed. She admits to taking her Eliquis on the evening of 03/27/[address] Soria plans to wait until late afternoon to proceed with her surgery. Dr. Heck gave her one dose of metoprolol 2.5mg IV yesterday due to her RVR with improvement. Labs today were relatively unremarkable with the exception of mild hyponatremia (Na 135) and slightly elevated TSH at 4.80. Objective Vital signs: Temperature 97.3 F 03/29/18 07:06 Pulse Rate 80 03/29/18 08:10 Respiratory Rate 12 03/29/18 07:06 Blood Pressure 155/80 H 03/29/18 07:06 Pulse Oximetry 94 03/29/18 07:06 Rhythm: Atrial Fibrillation with Normal Ventricular Rate Height/Weight/BMI: Height 5 ft 4 in Weight 97 lb 7.109 oz Body Mass Index 16.9 Comments: Patient resting in bed. - Constitutional Present: no acute distress, well nourished, well developed, thin, cooperative Comments: Very pleasant. - Routine HEENT Exam Head: Present: normocephalic, atraumatic Eye: Present: PERRL. Absent: conjunctival icterus ENT: Present: mucous membranes moist, oropharynx clear - Routine Respiratory Exam Present: CTA bilaterally. Absent: respiratory distress, wheezes - Routine Cardiovascular Exam Present: murmur, irregularly irregular - Routine Abdominal Exam Present: soft, normoactive bowel sounds, non distended - Routine Extremities Exam Present: no edema, pulses intact Comments: N/V intact. 2+ pedal pulses bilaterally. Pain with movement of right hip/leg. - Routine Back/Spine/Pelvis Exam Back/Spine: Absent: vertebral tenderness Comments: Limited ROM of back due to hip pain with movement. - Routine Musculoskeletal Exam Musculoskeletal: Present: no clubbing or cyanosis, moving extremities well - Routine Skin Exam Present: intact, dry, warm Comments: Afebrile. - Routine Neurological Exam Present: alert, oriented X3, moving all extremities, hearing grossly intact, normal speech - Routine Lymphatic Exam Lymphatic: Absent: lymphedema - Routine Psychiatric Exam Present: cooperative Results - Labs CBC & Chem 7: 03/29/18 04:23 03/29/18 04:23 Assessment and Plan (1) Hip fracture requiring operative repair Problem details: Right subcapital hip fracture Current visit: Yes Status: Acute (2) A-fib Current visit: Yes Status: Acute (3) CHF (congestive heart failure) Current visit: Yes Status: Acute Assessment and Plan: Assessment R hip fracture Chronic atrial fibrillation-on Eliquis HTN Osteoarthritis Mild elevation of TSH on admission Mild hypokalemia on admission (3.4) Thrush vs bacterial overgrowth vs black hairy tongue vs other - (pt declines tx at this time) Plan - 03/29/18 Anticipate surgical repair of right hip fracture later this afternoon with Dr. Soria. Pain well controlled. Continue pain control per Dr. Soria. Seen by Dr. Heck given a-fib with RVR on admission. Medical records from exercise planner reviewed. Patient given metoprolol 2.5mg IV x 1 dose on 03/28/18 with improvement. Continue to monitor closely on telemetry. Cardiology increased Norvasc to 5mg daily (up from home dose of 2.5mg daily) on 03/28/18. Monitor blood pressure closely. Patient cleared for surgery per cardiology. Mild hyponatremia today (Na 135). Change IV fluids to NS with KCl at 75cc/hr. Continue to monitor electrolytes. Monitor closely for signs of fluid overload. Currently patient is NPO in anticipation of upcoming surgery. May resume diet following surgery. TSH slightly elevated at 4.80. Recommend follow up with PCP as outpatient for further evaluation. Will recheck labs in AM to monitor blood counts, electrolytes and renal function. Monitor hemoglobin closely post operatively for post-op anemia. Will consult dietary for tomorrow, 03/30/18, due to decreased BMI and underweight. DVT Prophylaxis: SCD's Resuscitation Status: Full Code - Time spent with patient Time with patient PN: 30 minutes - Physician Narrative Physician: Mariah Hester MD Narrative: Date: 03/29/18 Time: 1715 I have independently evaluated and examined this patient. I reviewed the chart, the patient's history, and the SCRUB TECH/PA's documented findings as above. We discussed and formulated the assessment and plan as above with additions as below: Mrs. Naranjo was seen preoperatively this morning. She reported pain with any movement of her leg but otherwise was comfortable and denied dyspnea or nausea. Telemetry continues to show atrial fibrillation with variable rate. NAD, drowsy Respirations nonlabored, good airflow, anterior breath sounds clear Irregular cardiac rhythm Hemoglobin relatively stable at 13.8. Postoperative single view pelvis reviewed by myself-s/p R hemiarthroplasty. Blood pressure frequently modestly elevated, amlodipine increased as noted. Hospital Course Summary Disclaimer: The visit summary below is not to be considered part of the above Progress Note. Hospital Course: 03/28/18 Admit, IP for hip repair by Dr. Soria. Stay expected to exceed 2 overnights given surgical intervention and her age and comorbidities. Dr Soria planning for surgery today at noon. Cardiology consult for surgical clearance. Discussed with Kayli Sanon APRN who reviewed recent cardiac testing from Dr. Haro's office. She states pt is cleared from a cardiac standpoint. Patient has Hernandez cath. UA - no infection. IVF's - NS at 75ml/hr. All home meds currently on hold. Most recent dose of Eliquis was last evening. F-u w/ PCP re: TSH. Will follow K+ level/replace IV. BP and pulse are elevated. Metoprolol 2.5mg IV ordered by cardiology. SCD's for VTE ppx Pt requests to be a full code. Names her son, Dilshad, and her neighbors, Steve and Deena Davalos, as alternative decision makers. PCP - Dr. Yu in [place]. 03/29/18 Anticipate surgical repair of right hip fracture later this afternoon with Dr. Soria. Right hemiarthroplasty completed later in the day. Pain well controlled. Continue pain control per Dr. Soria. Seen by Dr. Heck given a-fib with RVR on admission. Medical records from exercise planner reviewed. Patient given metoprolol 2.5mg IV x 1 dose on 03/28/18 with improvement. Continue to monitor closely on telemetry. Cardiology increased Norvasc to 5mg daily (up from home dose of 2.5mg daily) on 03/28/18. Monitor blood pressure closely. Patient cleared for surgery per cardiology. Mild hyponatremia today (Na 135). Change IV fluids to NS with KCl at 75cc/hr. Continue to monitor electrolytes. Monitor closely for signs of fluid overload. Currently patient is NPO in anticipation of upcoming surgery. May resume diet following surgery. TSH slightly elevated at 4.80. Recommend follow up with PCP as outpatient for further evaluation. Will recheck labs in AM to monitor blood counts, electrolytes and renal function. Monitor hemoglobin closely post operatively for post-op anemia. Will consult dietary for tomorrow, 03/30/18, due to decreased BMI and underweight.
[2018-03-29] MEDS: NS 1,000 ML IV SCH ×2 (14:40→16:11)
--- NOTE | 2018-03-29 14:44 | Anesthesia Preoperative Report ---
Anesthesia Preoperative Record - Date and Time Date: 03/29/18 Preoperative Diagnosis: rt hip fx Proposed Procedure: Right Sidney NPO Since Date: 03/28/18 NPO Since Time: 09:00 Allergies/Adverse Reactions: Allergies Allergy/AdvReac Type Severity Reaction Status Date / Time iodine Allergy Vomiting Verified 03/28/18 04:50 Sulfa (Sulfonamide Allergy Verified 03/28/18 04:51 Antibiotics) - Vital Signs Vital Signs: Temperature 97.3 F 03/29/18 07:06 Pulse Rate 80 03/29/18 08:10 Respiratory Rate 12 03/29/18 07:06 Blood Pressure 155/80 H 03/29/18 07:06 Pulse Oximetry 94 03/29/18 07:06 Height and Weight: Height 5 ft 4 in Weight 44.2 kg Body Mass Index 16.9 - Medications Inpatient Medications: Current Medications Acetaminophen (Tylenol) 500 - 1,000 mg PO Q6H PRN PRN Reason: Discomfort Last Admin: 03/29/18 05:54 Dose: 1,000 mg Amlodipine Besylate (Norvasc) 5 mg PO DAILY [facility] Brimonidine Tartrate (Alphagan 0.2% Eye Drops) 1 drop OP BID [facility] Last Admin: 03/29/18 08:10 Dose: 1 drop Digoxin (Lanoxin) 125 mcg PO DAILY [facility] Last Admin: 03/29/18 08:10 Dose: 125 mcg Potassium Chloride/Sodium Chloride (Ns With Kcl 20 Meq Premix) 1,000 mls @ 75 mls/hr IV .[id number] [facility] Last Admin: 03/29/18 04:35 Dose: 75 mls/hr Sodium Chloride (Normal Saline) 1,000 mls @ 50 mls/hr IV .Q20H [facility] Metoprolol Tartrate (Lopressor) 25 mg PO BIDWM [facility] Last Admin: 03/29/18 08:10 Dose: 25 mg Morphine Sulfate (Morphine Sulfate Vial) 2 - 10 mg IVP Q1H PRN PRN Reason: Pain Last Admin: 03/29/18 00:18 Dose: 2 mg Ondansetron HCl (Zofran) 4 mg IVP Q4H PRN PRN Reason: Nausea &/or vomiting Home Medications: Home Medications Medication Instructions Recorded Confirmed Type Amlodipine 2.5 mg PO AM 03/28/18 03/28/18 History Brimonidine 0.2% Eye Drops 1 drop OP BID 03/28/18 03/28/18 History [Alphagan 0.2% Eye Drops] Digoxin 0.125 mg PO AM 03/28/18 03/28/18 History Eliquis 2.5 mg PO BID 03/28/18 03/28/18 History Fish Oil 1,000 mg Softgel 1,000 mg PO AM 03/28/18 03/28/18 History Glucosamine 1 tab PO BID 03/28/18 03/29/18 History Metoprolol Tartrate 25 mg PO BID 03/28/18 03/28/18 History Vit C/Ascorbate Calcium,Sodium 500 mg PO AM 03/28/18 03/28/18 History Aspirin 1 tab PO DAILY 03/29/18 03/29/18 History Cholecalciferol (Vitamin D3) 1 cap PO DAILY 03/29/18 03/29/18 History [Vitamin D3] Cyanocobalamin (Vitamin B-12) 500 mcg PO DAILY 03/29/18 03/29/18 History [B-12] Is Patient on Beta Surendra?: Yes Beta Surendra Last Dose Date/Time: 03/29/18 - Medical History Respiratory: Reports: Pneumonia DENIES: Asthma, Bronchitis, Chronic Obstructive Pulmonary Disease (COPD), Dyspnea, Orthopnea, Pulmonary Embolism, Upper Respiratory Infection, Pulmonary Edema, Sleep Apnea, Tuberculosis, Other Cardiovascular: Reports: Abnormal EKG, Arrhythmia, Coronary Artery Disease ( previous [place]), Hypertension, Valvular Heart Disease DENIES: Angina, Congestive Heart Failure, Heart Murmur, Hypotension, High Cholesterol, Myocardial Infarction, Rheumatic Fever, Other Gastrointestional: DENIES: Obstructive Bowel, Hepatitis, Cirrhosis, Nausea or Vomiting Present, Gastroesophageal Reflux Disease, Gastrointestinal Bleeding, Hiatal Hernia, Ulcer , Morbid Obesity, Other Neuro/Musculoskeletal: Denies: Back Problems, Cerebrovascular Accident, Depression, Headaches, Loss of Consciousness, Muscle Weakness, Neuromuscular Disorder, Paralysis, Paresthesia, Syncope, Seizures, Other Renal/Endocrine: DENIES: Diabetes Mellitus Type 1, Diabetes Mellitus Type 2, Renal Failure, Dialysis, Thyroid Disease, Weight Loss, Weight Gain, Other Other History: Reports: Cancer (1996) - Surgical History HEENT Surgeries: Reports: Tonsillectomy GI Surgery/Treatments: Reports: Appendectomy, Colonoscopy, EGD Surgery/Treatment: REPORT: Other (bladder surgery unspecified) Reproductive Surgery/Treatment: Reports: Lumpectomy (left) Anesthesia Reactions: None Hx Family Anesthesia Reaction: No History of Motion Sickness: No - Social History Smoking Status: Never smoker Hx Chewing Tobacco Use: No Second Hand Exposure: No Substance Use Type: does not use Alcohol Intake: never Alcohol Intake Frequency: does not drink - Pertinent Findings Laboratory: CBC and BMP 03/29/18 04:23 03/29/18 04:23 BMP 03/29/18 04:23 Sodium 135 L Potassium 3.7 Chloride 101 Carbon Dioxide 28 BUN 10.0 Creatinine 0.5 L Glucose 88 Calcium 8.1 L Liver Function 03/29/18 Range/Units 04:23 Albumin 3.1 L (3.5-5.0) g/dL EKG: A-flutter - Physical Exam Respiratory Exam: Present: lungs clear, bilateral breath sounds equal Cardiovascular Exam: Present: regular rate and rhythm, no murmur - ASA ASA Score: 3 - Plan Anesthesia: General Inhalation Gases - Discussion Discussion: Discussed risks/options/alternatives of anesthesia and questions answered. Patient consents. Nursing pain assessment noted. Present for Discussion: family member Attestation Statement: Prior to the delivery of any anesthetic medication, I examined the patient, developed the plan, obtained the patient's consent and discussed the risk and benefits of the procedure with the patient/guardian. - Additional Information Seen by Anesthesia: Yes
[2018-03-29] MEDS ORDERED: CEFAZOLIN 1 G INJECTION IVP ONE (15:00)
[2018-03-29] MEDS ORDERED: ROCURONIUM 50 MG/5 ML INJECTION IVP ONE (15:03)
[2018-03-29] MEDS ORDERED: PROPOFOL 20 ML ONE (15:03)
[2018-03-29] MEDS ORDERED: FentaNYL 100 MCG/2 ML INJECTION ONE (15:05)
[2018-03-29] MEDS ORDERED: VANCOMYCIN 1,000 MG INJECTION ONE (15:10)
[2018-03-29] MEDS ORDERED: LIDO 1% 30ml/BUPIV 0.25%-EPI 1:200T 30ml MIXTURE (60ml total) ID ONE (15:29)
[2018-03-29] MEDS ORDERED: EPHEDRINE 50mg/ml INJECTION ONE (15:36)
[2018-03-29] MEDS ORDERED: SALINE FLUSH 10ml SYRINGE ONE (15:36)
[2018-03-29] MEDS ORDERED: VANCOMYCIN 1,000 MG INJECTION IAR ONE (15:56)
[2018-03-29] MEDS ORDERED: SUGAMMADEX 200mg/2ml INJECTION IVP ONE (16:23)
[2018-03-29] MEDS ORDERED: ESMOLOL 100 MG/10 ML INJECTION ONE (16:24)
--- NOTE | 2018-03-29 16:47 | Anesthesia Postoperative Note ---
- Date and Time Date: 03/29/18 Time: 16:46 - Status Patient Participated in Evaluation: Patient Participated in Person Vital Signs: Temperature 97.5 F 03/29/18 16:30 Pulse Rate 85 03/29/18 16:45 Respiratory Rate 19 03/29/18 16:45 Blood Pressure 158/94 H 03/29/18 16:45 Pulse Oximetry 95 03/29/18 16:45 Respiratory Function: Airway Patent, Regular Respirations Cardiovascular Function: Irregular Pulse EKG: A-fib Mental Status: Alert and Oriented Pain Intensity: 0 Hydration: IV Infusing Complications During Recover: None Apparent - Follow-Up Instructions Instructions: Per Surgeon
--- NOTE | 2018-03-29 17:03 | XRay Report ---
Indication: Rt hip selina arthroplasty. Procedure: XR pelvis w/ 1 view RT hip: Encounter: Subsequent Comparison: 03/28/2018 Technique: An AP view of the pelvis and crosstable lateral view of the right hip were obtained Findings: Generalized osteopenia. Interval postoperative changes of right hip arthroplasty. The hardware components appear intact and appropriately aligned without evidence of acute hardware complication. No periprosthetic fracture. Mild degenerative changes of the left hip and visualized lower lumbar spine. Calcified pelvic phleboliths. Impression: Interval right hip arthroplasty without evidence of acute hardware complication or periprosthetic osseous abnormality. .
[2018-03-29] MEDS ORDERED: SENNA + DOCUSATE TABLET PO PRN (17:05)
[2018-03-29] MEDS ORDERED: NOZIN NASAL SWAB NAS ONE (17:05)
[2018-03-29] MEDS: NOZIN NASAL SWAB NAS SCH (17:23)
[2018-03-29] MEDS ORDERED: METOPROLOL 5mg/5ml INJECTION IVP ONE (18:14)
[2018-03-29] MEDS: APIXABAN 2.5 MG TAB PO SCH (20:38)
[2018-03-29] MEDS: SENNA + DOCUSATE TABLET PO SCH (20:39)
[2018-03-29] MEDS ORDERED: ELIQUIS 2.5 MG PO SCH (21:00)
[2018-03-29] MEDS: CEFAZOLIN 1 G in NS 100 ML IV SCH (23:11)
[2018-03-29] MEDS: HYDROCODONE/APAP 5mg/325mg TABLET PO PRN (23:22)
[2018-03-30] MEDS: NOZIN NASAL SWAB NAS SCH ×4 (02:02→20:56)
[2018-03-30] MEDS: HYDROCODONE/APAP 5mg/325mg TABLET PO PRN ×2 (02:03→08:16)
[2018-03-30] MEDS: NS 1,000 ML IV SCH ×2 (03:56→23:44)
[2018-03-30] MEDS: CEFAZOLIN 1 G in NS 100 ML IV SCH (07:28)
[2018-03-30] MEDS: BRIMONIDINE 0.2% OP SCH ×2 (08:09→20:56)
[2018-03-30] MEDS: EYE OP SCH ×2 (08:09→20:56)
[2018-03-30] MEDS: SENNA + DOCUSATE TABLET PO SCH ×2 (08:10→20:58)
[2018-03-30] MEDS: DIGOXIN 125 MCG TABLET PO SCH (08:10)
[2018-03-30] MEDS: ASPIRIN 325 MG TABLET PO SCH (08:10)
[2018-03-30] MEDS: AMLODIPINE 5 MG TABLET PO SCH (08:14)
[2018-03-30] MEDS: APIXABAN 2.5 MG TAB PO SCH ×2 (08:15→20:56)
--- NOTE | 2018-03-30 08:30 | Orthopedic Progress Note ---
Date: Date: 03/30/18 Time: 825 Subjective/Severity of Illness: Connie is doing well this am. When asked if she's having pain, she responds, "well I don't not have any pain". Denies feeling SOA but is on oxygen. No CP. She has not been up with PT yet. Pt is sitting up eating applesauce this AM. Dressing is dry. Labs look good. Orthopedic Exam Vital signs: Temperature 97.4 F 03/30/18 04:54 Pulse Rate 91 03/30/18 08:10 Respiratory Rate 18 03/30/18 08:16 Blood Pressure 139/72 03/30/18 04:54 Pulse Oximetry 96 03/30/18 04:54 - Constitutional General Appearance: Present: alert, cooperative, no acute distress - Respiratory Exam Present: non-labored - Cardiovascular Exam Present: pedal pulses intact - Extremities Exam Present: pulses intact - Dressing Dressing: dry, intact, no drainage - Integumentary Exam Present: pink, warm, dry - Neurological Exam Present: no deficits - Psychiatric Exam Present: alert, normal affect - Labs Result Diagrams: 03/30/18 04:19 03/30/18 04:19 Abnormal lab results 03/30/18 03/30/18 Range/Units 04:19 04:19 Neut % (Auto) 70.2 H (33-66) % Lymph % (Auto) 19.4 L (23-45) % Sodium 135 L (136-146) MEQ/L Potassium 3.5 L (3.6-5) MEQ/L Anion Gap 4 L (5-15) meq/L Creatinine 0.4 L (0.7-1.2) mg/dL Calculated Osmolality 257 L (261-280) MOSM/KG Calcium 8.0 L (8.4-10.2) MG/DL H & H 03/28/18 03/29/18 03/30/18 Range/Units 05:04 04:23 04:19 Hgb 14.4 13.8 12.8 (12-16) GM/DL Hct 42.9 42.3 38.5 (36-46) % Coagulation 03/28/18 Range/Units 05:04 INR 1.23 H (0.92-1.18) Orthopedic Assessment and Plan (1) Fracture of femoral neck, right, closed Status: Acute Qualifiers: Encounter type: initial encounter Qualified Code(s): S72.001A - Fracture of unspecified part of neck of right femur, initial encounter for closed fracture Assessment and Plan: S/P right hip selina-arthroplasty 03/29/18. Eliquis and aspirin restarted and SCDs and early mobilization for additional DVT coverage. PT / OT to ambulate, WBAT. Labs look good this AM. Hospitalist managing medical issues. - Anticoagulation Therapy Anticoagulation: Resume home anticoagulant Hospital Course Summary Disclaimer: The visit summary below is not to be considered part of the above Progress Note. Hospital Course: 03/28/18 Admit, IP for hip repair by Dr. Soria. Stay expected to exceed 2 overnights given surgical intervention and her age and comorbidities. Dr Soria planning for surgery today at noon. Cardiology consult for surgical clearance. Discussed with Kayli Sanon APRN who reviewed recent cardiac testing from Dr. Haro's office. She states pt is cleared from a cardiac standpoint. Patient has Hernandez cath. UA - no infection. IVF's - NS at 75ml/hr. All home meds currently on hold. Most recent dose of Eliquis was last evening. F-u w/ PCP re: TSH. Will follow K+ level/replace IV. BP and pulse are elevated. Metoprolol 2.5mg IV ordered by cardiology. SCD's for VTE ppx Pt requests to be a full code. Names her son, Dilshad, and her neighbors, Steve and Deena Davalos, as alternative decision makers. PCP - Dr. Yu in [place]. 03/29/18 Anticipate surgical repair of right hip fracture later this afternoon with Dr. Soria. Right hemiarthroplasty completed later in the day. Pain well controlled. Continue pain control per Dr. Soria. Seen by Dr. Heck given a-fib with RVR on admission. Medical records from tube builder reviewed. Patient given metoprolol 2.5mg IV x 1 dose on 03/28/18 with improvement. Continue to monitor closely on telemetry. Cardiology increased Norvasc to 5mg daily (up from home dose of 2.5mg daily) on 03/28/18. Monitor blood pressure closely. Patient cleared for surgery per cardiology. Mild hyponatremia today (Na 135). Change IV fluids to NS with KCl at 75cc/hr. Continue to monitor electrolytes. Monitor closely for signs of fluid overload. Currently patient is NPO in anticipation of upcoming surgery. May resume diet following surgery. TSH slightly elevated at 4.80. Recommend follow up with PCP as outpatient for further evaluation. Will recheck labs in AM to monitor blood counts, electrolytes and renal function. Monitor hemoglobin closely post operatively for post-op anemia. Will consult dietary for tomorrow, 03/30/18, due to decreased BMI and underweight.
[2018-03-30] MEDS ORDERED: POLYETHYL GLYCOL 3350 17gm PACKET PO SCH (09:00)
--- NOTE | 2018-03-30 09:09 | Operative Note ---
DATE OF PROCEDURE 03/29/2018 PREOPERATIVE DIAGNOSIS Right femoral neck fracture. POSTOPERATIVE DIAGNOSIS Right femoral neck fracture. PROCEDURE Right hip hemiarthroplasty. SURGEON Gustabo Soria MD CHEMISTRY ACCOUNT MANAGER Aravind Barba PA-C ANESTHESIA General. COMPLICATIONS None. EBL AND FLUIDS Please see Anesthetic Records. DESCRIPTION OF PROCEDURE Mrs. Naranjo and her right hip were identified and marked in the preoperative holding area. She was brought back to the operating suite and placed supine on the operating table. She was placed under general anesthesia and then she was placed into a lateral decubitus position with the right side up. The right lower extremity was prepped and draped in my normal sterile fashion. Time-out was performed. A posterior approach was utilized. The patient was very thin, so an approximately 8-9 cm incision was made over the greater trochanter. Sharp dissection was carried to the muscle fascia and the muscle was split. Retractors were placed. Short external rotators were identified. I detached the short external rotators distal to the piriformis and left the piriformis in place. A capsulotomy was then performed and the femoral head was removed. It was sized on the back table. Femoral neck osteotomy was performed and the neck fragment removed. The acetabulum was sized for a 46 head. I then reamed and broached, but her bone was too small for the smallest cemented stem, so then I moved to the Accolade system and broached to a size II Accolade stem. We trialed with a 132-degree neck with a standard head. This gave excellent stability and good leg length. After thorough irrigation, a final Accolade II stem was placed. We trialed again with a standard head and that was good. After a thorough irrigation, a final standard head was placed, 46 mm, and final reduction performed. Local anesthetic was injected into the capsule. The capsulotomy was repaired with Ethibond. The muscle fascia was repaired with Vicryl. 1 g vancomycin powder was placed into the wound before the subcutaneous tissue was closed with 2-0 Vicryl and the skin was closed with a running 4-0 Monocryl. A sterile dressing was placed. She was then placed back into a supine position and allowed to awaken from general anesthesia and taken to the recovery room under the care of Anesthesia. She tolerated the procedure well. There were no complications. CHRIST
--- NOTE | 2018-03-30 11:49 | Progress Note ---
- Date 03/30/18 Subjective: Patient is seen this morning sitting in her chair eating breakfast. She had hip surgery yesterday with Dr. Soria. This is the first she has eaten since surgery. She states she is feeling well. Currently has no pain. She is still requiring 3 L of oxygen. Her daughter is present this morning. No fever, chills, nausea, vomiting. Objective Vital signs: Temperature 96.8 F 03/30/18 08:00 Pulse Rate 133 H 03/30/18 08:30 Respiratory Rate 18 03/30/18 09:16 Blood Pressure 150/90 H 03/30/18 08:00 Pulse Oximetry 96 03/30/18 08:30 Rhythm: Atrial Fibrillation with Normal Ventricular Rate Height/Weight/BMI: Height 1.63 m Weight 46.8 kg Body Mass Index 16.9 - Constitutional Present: no acute distress, well nourished, well developed - Routine HEENT Exam Head: Present: normocephalic, atraumatic - Routine Respiratory Exam Present: CTA bilaterally. Absent: wheezes - Routine Cardiovascular Exam Present: murmur, irregular rhythm - Routine Abdominal Exam Present: soft, non distended, non tender - Routine Extremities Exam Present: no edema, normal capillary refill - Routine Skin Exam Present: dry, warm - Routine Neurological Exam Present: alert, normal speech somewhat forgetful but answers questions appropriately. - Routine Lymphatic Exam Lymphatic: Absent: adenopathy - Routine Psychiatric Exam Present: normal affect, cooperative Results - Labs CBC & Chem 7: 03/30/18 04:19 03/30/18 04:19 Assessment and Plan (1) Hip fracture requiring operative repair Problem details: Right subcapital hip fracture Current visit: Yes Status: Acute (2) A-fib Current visit: Yes Status: Acute (3) CHF (congestive heart failure) Current visit: Yes Status: Acute Assessment and Plan: Assessment R hip fracture s/p hemiarthroplasty by Dr. Soria 03/29/18 Chronic atrial fibrillation-on Eliquis HTN Osteoarthritis Mild elevation of TSH on admission Mild hypokalemia on admission (3.4) Thrush vs bacterial overgrowth vs black hairy tongue vs other - (pt declines tx at this time) Plan Seen by Dr. Heck for surgical clearance given a-fib with RVR on admission. Cardiology increased Norvasc to 5mg daily (up from home dose of 2.5mg daily) on 03/28/18. Monitor blood pressure closely. Eliquis has been resumed for afib. Hgb stable thus far. Sodium remains slightly low at 135 yesterday and today. Currently receiving NS at 50mls/hr. Potassium slightly low - replacement ordered. When transferring well, may start bladder retraining and DC catheter. TSH slightly elevated at 4.80. Recommend follow up with PCP as outpatient for further evaluation. Requiring 3L O2 (no home O2) - encouraged incentive spirometry. 03/30/2018-9 PM-I examined the patient independently. I reviewed this chart, the patient history, and the SWITCH TENDER's/PA's documented findings as above. We discussed and formulated the assessment and plan as above with the additions below.-Dr. Valle Patient was seen this evening in her room. She did have a heart rate up to 135 and was receiving an extra dose of metoprolol. She stated she was eating and drinking well. She states she had a couple of bowel movements today. She still has a Hernandez catheter in place. She still on IV fluids. On exam she is alert and oriented and in no acute distress. Chest is clear to auscultation. Cardiovascular reveals a tachycardic rate with irregular rhythm. Abdomen is soft and nontender. Extremities are free of edema. Impression and plan Postop day 1 status post right hemiarthroplasty-doing well A. fib with RVR-blood pressure is stable-receiving an extra dose of metoprolol this evening Other than A. fib with RVR, the patient appears to be doing well. We'll DC IV fluids when current bag is empty. Likely DC Hernandez catheter in the morning. She is now on room air. DVT Prophylaxis: Eliquis - Physician Narrative Narrative: Date: 03/30/18 Time: 1142 Hospital Course Summary Disclaimer: The visit summary below is not to be considered part of the above Progress Note. Hospital Course: 03/28/18 Admit, IP for hip repair by Dr. Soria. Stay expected to exceed 2 overnights given surgical intervention and her age and comorbidities. Dr Soria planning for surgery today at noon. Cardiology consult for surgical clearance. Discussed with Kayli Sanon APRN who reviewed recent cardiac testing from Dr. Haro's office. She states pt is cleared from a cardiac standpoint. Patient has Hernandez cath. UA - no infection. IVF's - NS at 75ml/hr. All home meds currently on hold. Most recent dose of Eliquis was last evening. F-u w/ PCP re: TSH. Will follow K+ level/replace IV. BP and pulse are elevated. Metoprolol 2.5mg IV ordered by cardiology. SCD's for VTE ppx Pt requests to be a full code. Names her son, Dilshad, and her neighbors, Steve and Deena Davalos, as alternative decision makers. PCP - Dr. Yu in [place]. 03/29/18 Anticipate surgical repair of right hip fracture later this afternoon with Dr. Soria. Right hemiarthroplasty completed later in the day. Pain well controlled. Continue pain control per Dr. Soria. Seen by Dr. Heck given a-fib with RVR on admission. Medical records from android ui developer reviewed. Patient given metoprolol 2.5mg IV x 1 dose on 03/28/18 with improvement. Continue to monitor closely on telemetry. Cardiology increased Norvasc to 5mg daily (up from home dose of 2.5mg daily) on 03/28/18. Monitor blood pressure closely. Patient cleared for surgery per cardiology. Mild hyponatremia today (Na 135). Change IV fluids to NS with KCl at 75cc/hr. Continue to monitor electrolytes. Monitor closely for signs of fluid overload. Currently patient is NPO in anticipation of upcoming surgery. May resume diet following surgery. TSH slightly elevated at 4.80. Recommend follow up with PCP as outpatient for further evaluation. Will recheck labs in AM to monitor blood counts, electrolytes and renal function. Monitor hemoglobin closely post operatively for post-op anemia. Will consult dietary for tomorrow, 03/30/18, due to decreased BMI and underweight. 03/30/18 - POD#[address] Heck for surgical clearance given a-fib with RVR on admission. Cardiology increased Norvasc to 5mg daily (up from home dose of 2.5mg daily) on 03/28/18. Monitor blood pressure closely. Eliquis has been resumed for afib. Hgb stable thus far. Sodium remains slightly low at 135 yesterday and today. Currently receiving NS at 50mls/hr. Potassium slightly low - replacement ordered. When transferring well, may start bladder retraining and DC catheter. TSH slightly elevated at 4.80. Recommend follow up with PCP as outpatient for further evaluation. Requiring 3L O2 (no home O2) - encouraged incentive spirometry.
--- NOTE | 2018-03-30 15:25 | Cardiology Progress Note ---
Subjective Principal diagnosis: hip fracture Interval history: Connie is seen in follow up for A Fib RVR. She is awake in her bed, on room air and in no distress. She denies chest pain or pressure, dyspnea, dizziness, N/V. Exam Vital signs: Temperature 97.5 F 03/30/18 12:00 Pulse Rate 64 03/30/18 14:50 Respiratory Rate 18 03/30/18 12:00 Blood Pressure 108/67 03/30/18 12:00 Pulse Oximetry 94 03/30/18 12:00 Inpatient Medications: Generic Name Dose Route Start Last Admin Trade Name Freq PRN Reason Stop Dose Admin Acetaminophen 500 - 1,000 mg 03/28/18 06:00 03/29/18 05:54 Tylenol PO 1,000 mg Q6H PRN Administration Discomfort Hydrocodone Bitart/Acetaminophen 1 - 2 tab 03/29/18 17:05 03/30/18 08:16 Sargent 5/325 PO 1 tab Q6H PRN Administration Pain Amlodipine Besylate 5 mg 03/30/18 09:00 03/30/18 08:14 Norvasc PO 5 mg DAILY SALVADOR Administration Apixaban 2.5 mg 03/29/18 21:00 03/30/18 08:15 Eliquis PO 2.5 mg BID SALVADOR Administration Aspirin 325 mg 03/30/18 09:00 03/30/18 08:10 Asa PO 325 mg DAILY SALVADOR Administration Brimonidine Tartrate 1 drop 03/28/18 21:00 03/30/18 08:09 Alphagan 0.2% Eye Drops OP 1 drop BID SAVLADOR Administration Digoxin 125 mcg 03/29/18 09:00 03/30/18 08:10 Lanoxin PO 125 mcg DAILY SALVADOR Administration Sodium Chloride 1,000 mls @ 50 mls/hr 03/29/18 14:30 03/30/18 03:56 Normal Saline IV 50 mls/hr .Q20H SALVADOR Administration Isopropyl Alcohol 1 each 03/29/18 17:05 03/30/18 08:09 Nozin Nasal Swab MARIANNE 1 each Q8H SALVADOR Administration Magnesium Hydroxide 30 ml 03/29/18 17:05 Mom PO DAILY PRN Constipation Metoprolol Tartrate 25 mg 03/28/18 17:30 03/30/18 08:10 Lopressor PO 25 mg BIDWM SALVADOR Administration Morphine Sulfate 2 - 10 mg 03/28/18 04:46 03/29/18 00:18 Morphine Sulfate Vial IVP 2 mg Q1H PRN Administration Pain Ondansetron HCl 4 mg 03/28/18 06:00 Zofran IVP Q4H PRN Nausea &/or vomiting Polyethylene Glycol 17 gm 03/30/18 09:00 03/30/18 08:08 Miralax PO 17 gm DAILY SALVADOR Administration Senna/Docusate Sodium 2 tab 03/29/18 21:00 03/30/18 08:10 Senna Plus Tablet PO 2 tab BID SALVADOR Administration Discontinued Medications Generic Name Dose Route Start Last Admin Trade Name Freq PRN Reason Stop Dose Admin Acetaminophen 1,000 mg 03/28/18 04:46 03/28/18 07:12 Tylenol PO 03/28/18 04:47 Not Given PREOP ONE Amlodipine Besylate 2.5 mg 03/29/18 09:00 03/29/18 08:10 Norvasc PO 2.5 mg DAILY SALVADOR Administration Amlodipine Besylate 5 mg 03/29/18 09:00 03/29/18 09:25 Norvasc PO Not Given DAILY SALVADOR Amlodipine Besylate 2.5 mg 03/29/18 09:30 03/29/18 10:11 Norvasc PO 03/29/18 09:31 2.5 mg O ONE Administration Cefazolin Sodium 1 g 03/29/18 15:00 03/29/18 15:20 Kefzol 1 Gm Vial IVP 03/29/18 15:01 1 g PREOP ONE Administration Sodium Chloride 1,000 mls @ 75 mls/hr 03/28/18 05:00 03/28/18 15:32 Normal Saline IV Infused .[id number] SALVADOR Infusion Potassium Chloride/Sodium Chloride 1,000 mls @ 75 mls/hr 03/28/18 15:00 03/29 17:12 Ns With Kcl 20 Meq Premix IV Infused .[id number] SALVADOR Infusion Cefazolin Sodium 1 g/ Sodium 100 mls @ 200 mls/hr 03/29/18 23:30 03/30/18 07: 28 Chloride IV 03/30/18 07:59 200 mls/hr Q8H SALVADOR Administration Isopropyl Alcohol 1 each 03/29/18 17:05 03/29/18 17:22 Nozin Nasal Swab MARIANNE 03/29/18 17:06 1 each O ONE Administration Metoprolol Tartrate 2.5 mg 03/28/18 10:02 03/28/18 10:34 Lopressor IVP 03/28/18 10:03 2.5 mg ONCE ONE Administration Metoprolol Tartrate 2.5 mg 03/29/18 18:14 03/29/18 18:22 Lopressor IVP 03/29/18 18:15 2.5 mg ONCE ONE Administration Miscellaneous Medication 60 ml 03/29/18 15:29 03/29/18 15:29 Lido1%/Bupiv 0.25%-Epi Mix ID 03/29/18 15:30 60 ml O ONE Administration Non-Formulary Medication 2.5 mg 03/28/18 15:00 Amlodipine PO AM SALVADOR Non-Formulary Medication 25 mg 03/28/18 21:00 Metoprolol Tartrate PO BID SALVADOR Non-Formulary Medication 0.125 mg 03/28/18 15:00 Digoxin PO AM SALVADOR Non-Formulary Medication 2.5 mg 03/29/18 21:00 Eliquis PO BID SALVADOR Ondansetron HCl 4 mg 03/28/18 04:46 03/28/18 07:12 Zofran IVP 03/28/18 04:47 Not Given PREOP ONE Pharmacy Consult 1 each 03/28/18 23:05 Pharmacy Consult - Fall Risk 03/28/18 23:06 ONE TIME ONE Potassium Chloride 20 meq 03/30/18 08:51 03/30/18 11:59 K-Dur 20 Meq Tablet PO 03/30/18 08:52 20 meq O ONE Administration Senna/Docusate Sodium 1 tab 03/29/18 17:05 Senna Plus Tablet PO BID PRN Constipation Vancomycin HCl 1,000 mg 03/29/18 15:56 03/29/18 16:00 Vancocin IAR 03/29/18 15:57 1,000 mg O ONE Administration - Constitutional no acute distress, cachectic, cooperative - Routine HEENT Exam Head: Present: normocephalic ENT: Present: mucous membranes moist - Routine Neck Exam Absent: JVD, carotid bruit - Routine Chest/Breast/Axilla Exam Chest wall: Absent: tenderness - Routine Respiratory Exam Present: CTA bilaterally. Absent: dyspnea, rales, wheezes - Routine Cardiovascular Exam Present: murmur, irregularly irregular - Routine Abdominal Exam Present: soft, non tender - Routine Extremities Exam Present: no edema, pulses intact - Routine Skin Exam Present: intact, dry, warm - Routine Neurological Exam Present: alert - Routine Psychiatric Exam Present: normal affect - Urinary Catheter Management 2-way Urethral Cath placed during this visit: yes Insertion date: 03/28/18 Results 03/30/18 04:19 03/30/18 04:19 CBC 03/30/18 Range/Units 04:19 WBC 10.1 (4.5-11.0) T/MM3 RBC 4.38 (4.00-5.20) M/MM3 Hgb 12.8 (12-16) GM/DL Hct 38.5 (36-46) % Plt Count 189 (130-400) T/MM3 Neut # (Auto) 7.1 (1.8-7.7) T/MM3 Lymph # (Auto) 2.0 (1-4.8) T/MM3 Bradley # (Auto) 0.8 (0-0.8) T/MM3 Eos # (Auto) 0.2 (0-0.5) T/MM3 Baso # (Auto) 0.0 (0-0.2) T/MM3 Comprehensive Metabolic Panel 03/30/18 Range/Units 04:19 Sodium 135 L (136-146) MEQ/L Potassium 3.5 L (3.6-5) MEQ/L Chloride 104 (98-107) MEQ/L Carbon Dioxide 27 (22-30) MEQ/L BUN 7.0 (7-17) MG/DL Creatinine 0.4 L (0.7-1.2) mg/dL Glucose 89 (65-110) MG/DL Calcium 8.0 L (8.4-10.2) MG/DL Intake and Output 03/30/18 03/30/18 03/30/18 06:59 14:59 22:59 Intake Total 600 / 600 380 / 380 Output Total 960 / 960 Balance -360 / -360 380 / 380 Intake: IV 100 / 100 Cefazolin 1 g In Ns 100 ml @ 100 / 100 200 mls/hr IV Q8H [facility] Rx#: [id number] Oral 500 / 500 380 / 380 Output: Urine Amount (Catheter) 960 / 960 Other: Urine Appearance Clear Cloudy Urine Color Pale Yellow Urine Odor Normal Stool Color Brown Stool Consistency Soft Size of Bowel Movement Moderate # Voids 1 1 # Bowel Movements 1 Weight 103 lb 2.821 oz Patient Weight 03/31/18 06:59 Weight 103 lb 2.821 oz Assessment and Plan - Assessment and Plan (1) Hip fracture requiring operative repair Problem details: Right subcapital hip fracture Current visit: Yes Status: Acute (2) Atrial fibrillation with RVR Problem details: Newly diagnosed 01/2018 Current visit: Yes Status: Acute (3) Atherosclerotic heart disease of [place] coronary artery without angina pectoris Current visit: Yes Status: Chronic (4) Essential (primary) hypertension Current visit: Yes Status: Chronic (5) Mitral valvular prolapse Current visit: Yes Status: Chronic (6) Mitral valve regurgitation Current visit: Yes Status: Chronic - Assessment and Plan 03/28/18 Hip fracture requiring operative repair Current visit: Yes Status: Acute - Patient had recent Nuclear stress test and 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 There was no evidence of ischemia on stress test. - She has not been having chest pain, pressure or tightness with her daily exercise. - She is a moderate risk due to past cardiac history including [place] and CAD, however it is okay to proceed with planned surgical repair of fracture per ortho team and we will follow along should complications arise. Atrial fibrillation with RVR Problem details: Newly diagnosed 01/2018 Current visit: Yes Status: Acute - Recently diagnosed. - HR 90s-low 100s, give Metoprolol 2.5mg IV x1 for rate control - Last took Eliquis before bed last night. - holding for OR Atherosclerotic heart disease of be[place] coronary artery without angina pectoris Current visit: Yes Status: Chronic - condition is stable. continue current therapy, risk management Essential (primary) hypertension Current visit: Yes Status: Chronic - continue Amlodipine post-operatively. Mitral valvular prolapse Current visit: Yes Status: Chronic Mitral valve regurgitation Current visit: Yes Status: Chronic 03/29/18 Increase Amlodipine to 5mg for better BP control, give additional 2.5mg now please - Dig level Hospital Course Summary Disclaimer: The visit summary below is not to be considered part of the above Progress Note. Hospital Course: 03/28/18 Admit, IP for hip repair by Dr. Soria. Stay expected to exceed 2 overnights given surgical intervention and her age and comorbidities. Dr Soria planning for surgery today at noon. Cardiology consult for surgical clearance. Discussed with Kayli Sanon APRN who reviewed recent cardiac testing from Dr. Haro's office. She states pt is cleared from a cardiac standpoint. Patient has Hernandez cath. UA - no infection. IVF's - NS at 75ml/hr. All home meds currently on hold. Most recent dose of Eliquis was last evening. F-u w/ PCP re: TSH. Will follow K+ level/replace IV. BP and pulse are elevated. Metoprolol 2.5mg IV ordered by cardiology. SCD's for VTE ppx Pt requests to be a full code. Names her son, Dilshad, and her neighbors, Steve and Deena Davalos, as alternative decision makers. PCP - Dr. Yu in [place].
[2018-03-31] MEDS: NOZIN NASAL SWAB NAS SCH ×2 (00:19→08:19)
[2018-03-31] MEDS: HYDROCODONE/APAP 5mg/325mg TABLET PO PRN (04:07)
[2018-03-31 07:24] VITALS: PULSE 70; O2SAT 94
[2018-03-31] MEDS: BRIMONIDINE 0.2% OP SCH (08:07)
[2018-03-31] MEDS: DIGOXIN 125 MCG TABLET PO SCH (08:07)
[2018-03-31] MEDS: EYE OP SCH (08:07)
[2018-03-31] MEDS: ASPIRIN 325 MG TABLET PO SCH (08:10)
[2018-03-31] MEDS: AMLODIPINE 5 MG TABLET PO SCH (08:10)
[2018-03-31] MEDS: APIXABAN 2.5 MG TAB PO SCH (08:10)
--- NOTE | 2018-03-31 09:14 | Orthopedic Progress Note ---
Date: Date: 03/31/18 Time: 909 Subjective/Severity of Illness: Connie is sitting up in the chair this morning. She reports her pain has significantly improved post-op. She has been ambulating in the room with walker. Denies any CP, SOA, nausea. Hgb 12.3 Orthopedic Exam Vital signs: Temperature 97.4 F 03/30/18 04:54 Pulse Rate 91 03/30/18 08:10 Respiratory Rate 18 03/30/18 08:16 Blood Pressure 139/72 03/30/18 04:54 Pulse Oximetry 96 03/30/18 04:54 - Constitutional General Appearance: Present: alert, orientated x3, cooperative, no acute distress, well nourished - Respiratory Exam Present: non-labored - Cardiovascular Exam Present: pedal pulses intact - Extremities Exam Present: no edema, pulses intact, normal capillary refill - Dressing Dressing: dry, intact, no drainage Comments: mepilex right hip - Integumentary Exam Present: pink, warm, dry - Neurological Exam Present: intact to light touch, no deficits - Psychiatric Exam Present: alert, normal affect - Labs Result Diagrams: 03/31/18 04:19 03/31/18 04:19 Abnormal lab results 03/31/18 03/31/18 Range/Units 04:19 04:19 WBC 11.1 H (4.5-11.0) T/MM3 Neut % (Auto) 74.1 H (33-66) % Lymph % (Auto) 18.0 L (23-45) % Neut # (Auto) 8.3 H (1.8-7.7) T/MM3 Sodium 134 L (136-146) MEQ/L Creatinine 0.4 L (0.7-1.2) mg/dL Calculated Osmolality 258 L (261-280) MOSM/KG H & H 03/28/18 03/29/18 03/30/18 Range/Units 05:04 04:23 04:19 Hgb 14.4 13.8 12.8 (12-16) GM/DL Hct 42.9 42.3 38.5 (36-46) % 03/31/18 Range/Units 04:19 Hgb 12.3 (12-16) GM/DL Hct 37.3 (36-46) % Coagulation 03/28/18 Range/Units 05:04 INR 1.23 H (0.92-1.18) Orthopedic Assessment and Plan (1) Fracture of femoral neck, right, closed Status: Acute Qualifiers: Encounter type: initial encounter Qualified Code(s): S72.001A - Fracture of unspecified part of neck of right femur, initial encounter for closed fracture Assessment and Plan: S/P right hip selina-arthroplasty 03/29/18. Eliquis and aspirin restarted and SCDs and early mobilization for additional DVT coverage. PT / OT to ambulate, WBAT. Hospitalist managing medical issues. Hospital Course Summary Disclaimer: The visit summary below is not to be considered part of the above Progress Note. Hospital Course: 03/28/18 Admit, IP for hip repair by Dr. Soria. Stay expected to exceed 2 overnights given surgical intervention and her age and comorbidities. Dr Soria planning for surgery today at noon. Cardiology consult for surgical clearance. Discussed with Kyali Sanon APRN who reviewed recent cardiac testing from Dr. Hrao's office. She states pt is cleared from a cardiac standpoint. Patient has Hernandez cath. UA - no infection. IVF's - NS at 75ml/hr. All home meds currently on hold. Most recent dose of Eliquis was last evening. F-u w/ PCP re: TSH. Will follow K+ level/replace IV. BP and pulse are elevated. Metoprolol 2.5mg IV ordered by cardiology. SCD's for VTE ppx Pt requests to be a full code. Names her son, Dilshad, and her neighbors, Steve and Deena Davalos, as alternative decision makers. PCP - Dr. Yu in [place]. 03/29/18 Anticipate surgical repair of right hip fracture later this afternoon with Dr. Soria. Right hemiarthroplasty completed later in the day. Pain well controlled. Continue pain control per Dr. Soria. Seen by Dr. Heck given a-fib with RVR on admission. Medical records from institution librarian reviewed. Patient given metoprolol 2.5mg IV x 1 dose on 03/28/18 with improvement. Continue to monitor closely on telemetry. Cardiology increased Norvasc to 5mg daily (up from home dose of 2.5mg daily) on 03/28/18. Monitor blood pressure closely. Patient cleared for surgery per cardiology. Mild hyponatremia today (Na 135). Change IV fluids to NS with KCl at 75cc/hr. Continue to monitor electrolytes. Monitor closely for signs of fluid overload. Currently patient is NPO in anticipation of upcoming surgery. May resume diet following surgery. TSH slightly elevated at 4.80. Recommend follow up with PCP as outpatient for further evaluation. Will recheck labs in AM to monitor blood counts, electrolytes and renal function. Monitor hemoglobin closely post operatively for post-op anemia. Will consult dietary for tomorrow, 03/30/18, due to decreased BMI and underweight. 03/30/18 - POD#[address] Heck for surgical clearance given a-fib with RVR on admission. Cardiology increased Norvasc to 5mg daily (up from home dose of 2.5mg daily) on 03/28/18. Monitor blood pressure closely. Eliquis has been resumed for afib. Hgb stable thus far. Sodium remains slightly low at 135 yesterday and today. Currently receiving NS at 50mls/hr. Potassium slightly low - replacement ordered. When transferring well, may start bladder retraining and DC catheter. TSH slightly elevated at 4.80. Recommend follow up with PCP as outpatient for further evaluation. Requiring 3L O2 (no home O2) - encouraged incentive spirometry.
--- NOTE | 2018-03-31 12:03 | Discharge Summary ---
Discharge Information Date of admission: 03/28/18 03:30 Anticipated date of discharge: 03/31/18 Attending Physician: Monie Valle MD Primary care physician: Dr. Nette Yu Consults: Consulting Provider: Gustabo Soria Reason For Exam: rt hip fx Consulting Provider: Kendall Heck Reason For Exam: cardiac clearance - Discharge Diagnosis (1) Hip fracture requiring operative repair Status: Acute (2) A-fib Status: Chronic (3) CHF (congestive heart failure) Status: Acute R hip fracture s/p hemiarthroplasty by Dr. Soria 03/29/18 Chronic atrial fibrillation-on Eliquis HTN Osteoarthritis Mild elevation of TSH on admission Mild hypokalemia on admission (3.4) - Procedures Procedures: DATE OF PROCEDURE 03/29/2018 PROCEDURE Right hip hemiarthroplasty. SURGEON Gustabo Soria MD = = = = = = = = = = = = = = = = = = = = = = = = = = = = = = = = = = = = = = = = = = = = = = = = = = = = = = = = = = === Date of Exam: 03/28/18 Type of Exam(s): US echo doppler complete Left atrial dimension is normal. Left ventricle end-diastolic dimension is normal. Left ventricle wall thickness is normal. LV systolic function is normal with ejection fraction of about 60%. Right atrium is dilated. Right ventricle is normal. Aortic root dimension is normal. Mitral annulus is calcified. Mitral valve leaflets are sclerotic with no stenosis. Mild bileaflet mitral valve prolapse is present. Mild mitral regurgitation is present. Aortic valve shows fibrocalcific changes with no stenosis or insufficiency. Tricuspid valve shows moderate tricuspid regurgitation with mild pulmonary hypertension with estimated pulmonary artery systolic pressure of 37. Pulmonary valve shows mild pulmonary insufficiency. There is no pericardial effusion. IMPRESSION 1. Normal LV systolic function with ejection fraction of 60%. 2. Mitral annulus calcification with mitral sclerosis, mild mitral regurgitation, and mild bileaflet mitral valve prolapse. 3. Aortic sclerosis. 4. Moderate tricuspid regurgitation with mild pulmonary hypertension with estimated pulmonary artery systolic pressure of 37. 5. Mild pulmonary insufficiency. 6. Right atrial dilation. - Laboratory Labs: Dismissal labs 03/31/18 03/31/18 04:19 04:19 WBC 11.1 H RBC 4.29 Hgb 12.3 Hct 37.3 Plt Count 185 Sodium 134 L Potassium 3.8 Chloride 103 Carbon Dioxide 25 BUN 9.0 Creatinine 0.4 L Glucose 108 Admission labs 03/28/18 03/28/18 03/28/18 05:04 05:04 05:04 WBC 10.4 RBC 4.92 Hgb 14.4 Hct 42.9 Plt Count 209 Sodium 137 Potassium 3.4 L Chloride 99 Carbon Dioxide 31 H BUN 13.0 Creatinine 0.5 L Glucose 108 Calcium 8.7 Magnesium 1.9 TSH 4.80 H - Radiology Radiology: Date of Exam: 03/29/18 Indication: Rt hip selina arthroplasty. Procedure: XR pelvis w/ 1 view RT hip: Findings: Generalized osteopenia. Interval postoperative changes of right hip arthroplasty. The hardware components appear intact and appropriately aligned without evidence of acute hardware complication. No periprosthetic fracture. Mild degenerative changes of the left hip and visualized lower lumbar spine. Calcified pelvic phleboliths. Impression: Interval right hip arthroplasty without evidence of acute hardware complication or periprosthetic osseous abnormality. = = = = = = = = = = = = = = = = = = = = = = = = = = = = = = = = = = = = = = = = = = = = = = = = = = = = = = = = = = == Date of Exam: 03/28/18 Indication: PAIN XR chest 1V: Findings: Heart size is at the upper range of normal without central vascular congestion. Mild chronic appearing lung changes are identified. No significant pleural effusions or focal parenchymal pulmonary consolidation seen. No acute bony findings identified. Impression: Mild cardiac prominence without overt heart failure and no significant acute pulmonary findings. History of Present Illness HPI: (Pt admitted under telemedicine doctor - see his H&P for further info) The pt is a 88 yo female who got up out of bed to answer the phone around midnight, fell and landed on a table. She denies any LOC, but does have head trauma, small 1 cm head laceration. She denies frequency of falling. She states she felt like she was pushed backward, doesn't feel like she tripped. Didn't feel lightheaded or dizziness. Feels like it was something "spiritual" that pushed her. (Pt spent her [place] and has a very strong belief in "the Lord, " which she frequently talks about.) She is on Eliquis, Metoprolol and dig for atrial fibrillation and amlodipine for HTN. She states she used to walk a mile every day prior to this winter, but she had influenza, and since then, she has never regained her energy. She did say she felt very well yesterday and accomplished a lot. Didn't take melatonin prior to hs which she sometimes does. Her family is currently visiting from [place] and they came to check on her after they heard her fall. EMS was called and pt was transported to [facility] and then transferred here to [facility]. Objective Vital signs: Temperature 96.7 F L 03/31/18 07:21 Pulse Rate 70 03/31/18 08:07 Respiratory Rate 16 03/31/18 07:21 Blood Pressure 130/73 03/31/18 07:21 Pulse Oximetry 94 03/31/18 07:21 Height/Weight/BMI: Height 1.63 m Weight 47.2 kg Body Mass Index 16.9 - Constitutional Present: no acute distress, well nourished, well developed - Routine HEENT Exam Head: Present: normocephalic, atraumatic - Routine Respiratory Exam Present: CTA bilaterally. Absent: wheezes - Routine Cardiovascular Exam Present: RRR, no murmur - Routine Abdominal Exam Present: soft, non distended, non tender - Routine Extremities Exam Present: no edema, normal capillary refill - Routine Skin Exam Present: dry, warm - Routine Neurological Exam Present: alert, oriented X3 - Routine Lymphatic Exam Lymphatic: Absent: adenopathy - Routine Psychiatric Exam Present: normal affect, cooperative Hospital Course This is a general summary of the patient's hospital course. For more details refer to the complete medical record. Hospital course: 03/28/18 Admit, IP for hip repair by Dr. Soria. Stay expected to exceed 2 overnights given surgical intervention and her age and comorbidities. Dr Soria planning for surgery today at noon. Cardiology consult for surgical clearance. Discussed with Kayli Sanon APRN who reviewed recent cardiac testing from Dr. Haro's office. She states pt is cleared from a cardiac standpoint. Patient has Hernandez cath. UA - no infection. IVF's - NS at 75ml/hr. All home meds currently on hold. Most recent dose of Eliquis was last evening. F-u w/ PCP re: TSH. Will follow K+ level/replace IV. BP and pulse are elevated. Metoprolol 2.5mg IV ordered by cardiology. SCD's for VTE ppx Pt requests to be a full code. Names her son, Dilshad, and her neighbors, Steve and Deena Davalos, as alternative decision makers. 03/29/18 Anticipate surgical repair of right hip fracture later this afternoon with Dr. Soria. Right hemiarthroplasty completed later in the day. Pain well controlled. Continue pain control per Dr. Soria. Seen by Dr. Heck given a-fib with RVR on admission. Medical records from esthetician facialist reviewed. Patient given metoprolol 2.5mg IV x 1 dose on 03/28/18 with improvement. Continue to monitor closely on telemetry. Cardiology increased Norvasc to 5mg daily (up from home dose of 2.5mg daily) on 03/28/18. Monitor blood pressure closely. Patient cleared for surgery per cardiology. Mild hyponatremia today (Na 135). Change IV fluids to NS with KCl at 75cc/hr. Continue to monitor electrolytes. Monitor closely for signs of fluid overload. Currently patient is NPO in anticipation of upcoming surgery. May resume diet following surgery. TSH slightly elevated at 4.80. Recommend follow up with PCP as outpatient for further evaluation. Will recheck labs in AM to monitor blood counts, electrolytes and renal function. Monitor hemoglobin closely post operatively for post-op anemia. Will consult dietary for tomorrow, 03/30/18, due to decreased BMI and underweight. 03/30/18 - POD#[address] Heck for surgical clearance given a-fib with RVR on admission. Cardiology increased Norvasc to 5mg daily (up from home dose of 2.5mg daily) on 03/28/18. Monitor blood pressure closely. Eliquis has been resumed for afib. Hgb stable thus far. Sodium remains slightly low at 135 yesterday and today. Currently receiving NS at 50mls/hr. Potassium slightly low - replacement ordered. When transferring well, may start bladder retraining and DC catheter. TSH slightly elevated at 4.80. Recommend follow up with PCP as outpatient for further evaluation. Requiring 3L O2 (no home O2) - encouraged incentive spirometry. 03/31/18 - POD #2 Pt has been accepted to IRU. Stable for transfer today. No longer requiring O2. Hernandez will be DC'd. Hgb stable. VSS. Continues on Eliquis for afib. Will need f-u with PCP - Dr. Yu in [place], upon DC from IRU. 03/31/2018-6 PM-I examined the patient independently. I reviewed this chart, the patient history, and the DROP WIRE HANGER's/PA's documented findings as above. We discussed and formulated the assessment and plan as above with the additions below.-Dr. Valle Patient was seen late this afternoon in her room. She states she is feeling okay. She denies any shortness of breath. She denies any nausea or vomiting. She had a bowel movement today. Her Hernandez was removed today and she has urinated since that time. She does complain of back pain when she is lying in bed trying to sleep, this is a chronic problem. On exam she is alert and oriented and in no acute distress. Chest is clear to auscultation. Cardiovascular reveals a regular rate and rhythm. Abdomen is soft and nontender. Extremities are free of edema Impression and plan Patient is postop day 2 after hip fracture repair. She is doing well and was transferred to inpatient rehabilitation. Monitor for difficulties with urinary retention. Continue on Eliquis. Her esthetician facialist recommended that she stop aspirin when she is on Eliquis, so I will discontinue her aspirin. She should have adequate anticoagulation postop hip fracture with Eliquis. I did talk with 3 of her children who are here this evening. She has 5 children and they all live in different parts of the world, the closest child is 5 hours away in [place]. They would like their mother to move and live near one of her children. They're concerned that she is not keeping up with her housework at home even before her fall. 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 They her mother has been a little too generous with her money and has been making many donations. They also state that her mother gets frequent calls in the middle of the night from her friends overseas. They do not think there mother has any difficulties with memory decline, but they worry that the stress is affecting her physically. I discussed with them that I would talk with her about their concerns. Time spent with patient: discharge greater than 30 minutes Resuscitation Status: Full Code Discharge Plan - Discharge Disposition Discharge Date: 03/31/18 Disposition: 64 To [facility] IN[facility] Re[facility] *Condition: Stable Reason For Visit (Visit label in EMR): rt hip fx - Discharge Medications Medication Comments: Medications listed should reflect patient's home medications. This list does not necessarily reflect the medications patient is taking up on transfer from surgical unit to rehabilitation unit. *Discharge Medications: Continue Digoxin 0.125 mg PO AM Brimonidine 0.2% Eye Drops [Alphagan 0.2% Eye Drops] 1 drop OP BID Cyanocobalamin (Vitamin B-12) [B-12] 500 mcg PO DAILY Cholecalciferol (Vitamin D3) [Vitamin D3] 1 cap PO DAILY Metoprolol Tartrate 25 mg PO BID Amlodipine 2.5 mg PO AM Eliquis 2.5 mg PO BID Vit C/Ascorbate Calcium,Sodium 500 mg PO AM Fish Oil 1,000 mg Softgel 1,000 mg PO AM Glucosamine 1 tab PO BID Aspirin 1 tab PO DAILY - Discharge Packet/Instructions *Diet: Regular diet *Activity: Per Dr. Chahal. *Pain Management/Treatment: Per Dr. Chahal *Wound Care: Per ortho instructions *Expected Signs/Symptoms: Slow improvement in pain and function *Notify Physician if: You develop fever or have increasing pain *During Business Hours Contact: n/a *After Business Hours Contact: n/a *Pending Lab/Results: No Pending Lab - IRU/GEN Discharge/Transfer - Referrals/Follow Up *Referrals/Follow Up: Nette Yu MD [Physician] - (After rehabilitation stay) - Patient Handouts Patient Handouts: [facility] Ortho Postop Instructions - Dismissal Complete Discharge Instructions are:: Complete Physician Narrative - Narrative Attestation Narrative: Date: 03/31/18 Time: 8205
[2018-03-31 12:15] VITALS: BP 128/73; RESP 18; TEMP 98.1
[2018-03-31] MEDS ORDERED: MELATONIN 1 MG TABLET PO SCH (21:00)
[2018-03-31] MEDS ORDERED: MELATONIN 5 MG TABLET PO SCH (21:00)
== END 2018-03-31 14:38 | DRG 470 ==
LOC: SUATTDRO 03:30 → SRG 03:30
PROVIDERS: ADMIT Internal Medicine; ATTEND Internal Medicine

== ENCOUNTER 2018-03-31 14:45 | Inpatient (IN) ==
--- NOTE | 2018-03-31 15:00 | IRU History & Physical Report ---
HPI IRU Date: Date: 03/31/18 Time: 1458 Chief complaint: I broke my hip and have heart problems HPI: Ms. Naranjo is a very pleasant 88-year-old female from [place], [place]. Referring physician is Dr. Wale Maxwell. Primary care physician is Carol Yu MD in [place] and Dr. Haro is her cost controller. The patient states that she has been receiving several phone calls at midnight over the last several weeks. She does not know who these are from. On 03/28/2018 she was up answering the telephone at midnight but lost her balance and hit a table. She then fell to the floor striking her head. She has a goose egg on the right side of her head. Her grandchildren were staying with her in the basement on a temporary basis and they were able to assist her. She denies loss of consciousness or dizziness. She denies any chest pains. EMS was called and she was transferred to [place] emergency department and was then transferred to [facility]. She was admitted to the hospital on 03/28/2018 to the hospitalist service. Dr. Gustabo Soria was consulted because of a right hip fracture. She states that she has had a difficult winter. She had "the flu" resulting in a 20 pound weight loss, increased fatigability as well as development of atrial fibrillation which is a relatively new diagnosis. She reports that her mitral valve prolapse turn into regurgitation. The patient was seen by Dr. Heck in cardiology consultation prior to her surgery. Echocardiogram recently done on 03/07/2018 as an outpatient demonstrated ejection fraction 55-60%, mild left ventricular hypertrophy, mitral valve prolapse of the anterior leaflet, mild mitral regurgitation, moderate tricuspid regurgitation and mildly elevated PA pressure at 30-35 mmHg in the setting of atrial fibrillation. She had a nuclear stress test done previously which was negative for angina without diagnostic ischemic changes on electrocardiogram. Nuclear study was apparently negative as an outpatient. Carotid study showed minimal stenoses bilaterally. She is on Eliquis for her atrial fibrillation. The atrial fibrillation has been relatively recently diagnosed. She did experience rapid ventricular response here in the hospital and was given intravenous metoprolol. There is mention on the chart of a diagnosis of atherosclerotic heart disease although she states she has never had a catheterization and the nuclear test was negative. She denies chest pains. She reportedly had a myocardial infarction several years ago and therefore carries a diagnosis of coronary artery disease. She does carry a diagnosis of benign essential hypertension as well as the atrial fibrillation and mitral valve prolapse with regurgitation. Surgery had to be postponed because of the use of Eliquis. She was taken to surgery on 03/29/[address] Soria because of a right femoral neck fracture. Procedure performed was right hip hemiarthroplasty. She tolerated the procedure well and is weightbearing as tolerated. Eliquis has been restarted. She reports to me that she wants full resuscitation in the event of an arrest. Her hemoglobin has been stable but her white count did jump up a bit to 11,000. Does have mild hyponatremia with sodium 134. Potassium was 3.5 but is now 3.8. TSH is slightly elevated indicating hypothyroidism. Prior to the fall the patient was independent to modified independent for all activities. She lives in her own home independently in [facility]. This is a duplex. She apparently does have good family support. 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 Her some 13 years ago. 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 Current level of functioning indicates the patient is independent for eating, require supervision for grooming but total assistance for bathing, toileting and transfers as well as toilet transfers. She requires a rolling walker or from fluid walker for ambulation. The following medical conditions are noted and require active monitoring and/or management: 1. s/p ORIF right hip fracture (right hip hemiarthroplasty) 2. Atrial fibrillation with restarting of Eliquis. She has experienced RVR with requirement for metoprolol IV. 3. Benign essential hypertension 4. ASHD: by history she has had a remote CA but no recent chest pain. However, due to increased energy demands from her rehabilitation she is at risk for further cardiac complications and will be monitored carefully. The following therapies will be needed: 1. Physical therapy: for transfers and ambulation and stairs. 2. Occupational therapy: for ADL's and transfers. 3. Medical management: for the above conditions. 4. 24 hour Rehabilitation Nursing to monitor and address the following: Monitor cardiac status to monitor for evidence of heart failure, arrhythmias including rapid ventricular response, monitor for evidence of blood loss because of restarting Eliquis in the face of recent surgery, monitor pain and wound management. [facility] Patient Stated Medical History Cerebrovascular Accident No Paralysis No Seizures No Syncope No Dental Problems Yes: implants Glaucoma Yes: right eye Angina No Cardiac Arrhythmia Yes Congestive Heart Failure No Coronary Artery Disease Yes: previous CA Heart Murmur No Hypertension Yes Hypotension No Myocardial Infarction No Rheumatic Fever No Valvular Heart Disease Yes Other Cardiology No Asthma No Bronchitis No Chronic Obstructive Pulmonary No Disease (COPD) Pneumonia Yes Pulmonary Edema No Pulmonary Embolism No Sleep Apnea No Tuberculosis No Other Respiratory No Diabetes Mellitus Type 1 No Diabetes Mellitus Type 2 No Cirrhosis No Gastroesophageal Reflux No Disease Gastrointestinal Bleeding No Hepatitis No Hiatal Hernia No Obstructive Bowel No Ulcer No Other GI No Other Musculoskeletal No Depression No Clinic Medical History (Last Updated 03/28/18 @ 04:55 by Koko Martin MD) Atrial fibrillation with RVR (Acute Medical) Newly diagnosed 01/2018 Medical History Updates: H/o CA (age 60's), HTN, h/o mild asthma, breast cancer (intraductal), MVP, mild mitral regurgitation, atrial fibrillation, glaucoma, cataracts not yet operated upon Surgical History: Appendectomy 1965. cystoscopy and bladder repair. D&C x3. Lumpectomy w/radiation 1996. Tonsillectomy Family History: The patient's father drowned. Her mother of old age around age 93. 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 Her worked as an grill attendant on the [place] and she was supportive of that. She has good family support. Her grandchildren were temporarily staying with her in the basement at the time of this fall. Review of Systems - Constitutional Constitutional: Present: fatigue, lethargy, weight loss (patient has lost some 20 pounds since this winter attributed to the flu.). Absent: anorexia, chills, fever(s), headache(s), malaise, night sweats, weakness, weight gain Comments: Feels cold much of the time. - EENMT Eyes: Absent: blurry vision, change in vision, diplopia Mouth/Throat: Absent: changes in swallowing, painful swallowing, change in taste , bleeding gums, change in voice - Cardiovascular Cardiovascular: Absent: chest pain, palpitations, syncope, dyspnea on exertion, orthopnea, edema, cyanosis, heart murmur Rhythm: Present: abnormal rhythm Vascular: Absent: intermittent claudication, pedal edema, unilateral swelling - Respiratory Respiratory: Present: dyspnea on exertion (reports that if she walks on level ground she does okay but if she climbs stairs or exerts herself she does tend to have some dyspnea.). 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 Absent: abdominal pain, change in bowel habits, constipation, diarrhea, dysphagia, early satiety, hematochezia, melena, nausea, vomiting - Musculoskeletal Musculoskeletal: Absent: abnormal gait, arthralgias, back pain, joint swelling, limited range of motion, muscle weakness - Integumentary/Breasts Integumentary: Absent: alopecia, erythema, lesions, pruritus, rash, jaundice - Neurological Neurological: Absent: abnormal gait, abnormal movements, abnormal speech, confusion, convulsions, dizziness, focal weakness, frequent falls, headache(s), loss of vision, memory loss, numbness, paresthesias, tremor(s) - Psychiatric Psychiatric: Absent: abnormal sleep pattern, anxiety, depression - Endocrine Endocrine: Absent: cold intolerance, flushing, heat intolerance, palpitations - Hematologic/Lymphatic Hematologic/Lymphatic: Absent: easy bleeding, easy bruising, lymphadenopathy - Allergic/Immunologic Allergic/Immunologic: Absent: urticaria Medications Home Medications Medication Instructions Recorded Confirmed Type Amlodipine 2.5 mg PO AM 03/28/18 03/28/18 History Brimonidine 0.2% Eye Drops 1 drop OP BID 03/28/18 03/28/18 History [Alphagan 0.2% Eye Drops] Digoxin 0.125 mg PO AM 03/28/18 03/28/18 History Eliquis 2.5 mg PO BID 03/28/18 03/28/18 History Fish Oil 1,000 mg Softgel 1,000 mg PO AM 03/28/18 03/28/18 History Glucosamine 1 tab PO BID 03/28/18 03/29/18 History Metoprolol Tartrate 25 mg PO BID 03/28/18 03/28/18 History Vit C/Ascorbate Calcium,Sodium 500 mg PO AM 03/28/18 03/28/18 History Aspirin 1 tab PO DAILY 03/29/18 03/29/18 History Cholecalciferol (Vitamin D3) 1 cap PO DAILY 03/29/18 03/29/18 History [Vitamin D3] Cyanocobalamin (Vitamin B-12) 500 mcg PO DAILY 03/29/18 03/29/18 History [B-12] Allergies Allergy/AdvReac Type Severity Reaction Status Date / Time iodine Allergy Vomiting Verified 03/28/18 04:50 Sulfa (Sulfonamide Allergy Verified 03/28/18 04:51 Antibiotics) Results IRU - Labs Labs: I have reviewed extensive inpatient records. Exam - Constitutional Present: well nourished, well developed, thin, cooperative - Routine HEENT Exam Head: Present: normocephalic, atraumatic. Absent: cushingoid faces, abrasion, laceration, hematoma Eye: Present: EOMI, PERRL. Absent: conjunctival icterus, scleral injection, periorbital swelling, nystagmus ENT: Present: mucous membranes moist, oropharynx clear - Routine Neck Exam Present: supple, full ROM, trachea midline. Absent: lymphadenopathy, thyromegaly, tenderness, swelling - Routine Chest/Breast/Axilla Exam Chest wall: Absent: tenderness, mass Axillae: Absent: lymphadenopathy, mass - Routine Respiratory Exam Present: CTA bilaterally. Absent: accessory muscle use, decreased breath sounds , prolonged expiratory phase, rales, respiratory distress, rhonchi, stridor, wheezes, crackles, distant breath sounds - Routine Cardiovascular Exam Present: S1, S2, no murmur, irregularly irregular. Absent: gallop, S3, S4, click, irregular rhythm - Routine Abdominal Exam Present: soft, normoactive bowel sounds, non distended, non tender. Absent: rebound, guarding, firm, rigid, organomegaly, mass, hernia, wound - Routine Extremities Exam Present: no edema, non tender, pulses intact. Absent: cyanosis, clubbing - Routine Back/Spine/Pelvis Exam Back/Spine: Present: full ROM. Absent: scoliosis, kyphosis - Routine Skin Exam Present: intact, dry, warm. Absent: cyanosis, erythema, pallor, mottling, petechiae, urticaria, lesions, jaundice - Routine Neurological Exam Present: alert, oriented X3, CN II-XII intact, moving all extremities, normal speech - Routine Psychiatric Exam Present: normal affect, normal thought process, cooperative, good insight, good judgment. Absent: depressed, anxious Sepsis Assessment - Evaluation Severe Sepsis: none seen IRU A/P (1) S/P ORIF (open reduction internal fixation) fracture Current visit: Yes Status: Acute Patient has sustained a right hip fracture which has now been repaired. Because of this she has sustained multiple functional deficits. She lives independently and requires development of coping skills to allow her to perform her ADLs and ambulatory functions in a safe manner. (2) A-fib Qualifiers: Atrial fibrillation type: chronic Qualified Code(s): I48.2 - Chronic atrial fibrillation Current visit: No Status: Chronic This is a recent diagnosis in January 2018. She has had rapid ventricular response at the time of admission, requiring intravenous metoprolol for control. She has been seen by Dr. Heck prior to the current surgery and is her cost controller. She is now getting back on Eliquis and is at risk for further cardiac arrhythmias or decompensation. (3) Essential (primary) hypertension Current visit: No Status: Chronic (4) Mitral valve regurgitation Qualifiers: Cardiac valve disease etiology: nonrheumatic Qualified Code(s): I34.0 - Nonrheumatic mitral (valve) insufficiency Current visit: No Status: Chronic She has history of mitral valve prolapse with regurgitation. She states this developed subsequent to her illnesses this winter. (5) Mitral valvular prolapse Current visit: No Status: Chronic (6) Atherosclerotic heart disease of [place] coronary artery without angina pectoris Qualifiers: [place] vs. transplanted heart: [place] heart Qualified Code(s): I25.10 - Atherosclerotic heart disease of [place] coronary artery without angina pectoris Current visit: No Status: Chronic She reports a history of "heart attack" a number of years ago. Recent studies have been negative. Denies angina. However she is at risk for worsening cardiac symptoms in terms of increased energy output involved with rehabilitation. We will monitor her cardiac status carefully. DVT Prophylaxis: Eliquis Resuscitation Status: Full Code - Course Hospital Course: Rosendo Chahal MD: - Interventions to Obtain Goals Goals Progress/Modifications: This patient suffered a recent fracture of the right hip which has been repaired. However as a result she has sustained multiple functional deficits and requires a multidisciplinary approach with OT and PT. She has medical issues of atrial fibrillation, resumption of Eliquis therapy, a diagnosis of previous coronary artery disease and hypertension. She will be monitored carefully for these problems as well.
[2018-03-31] MEDS ORDERED: FALL RISK - PHARMACY CONSULT MC ONE (15:17)
[2018-03-31] MEDS ORDERED: MORPHINE SULFATE 10mg/ml INJECTION IVP PRN (15:17)
--- NOTE | 2018-03-31 15:19 | IRU 24Hr Post Admit Eval ---
24 Hr Post Admission Physical - Relevant Changes Relevant Changes: No Reviewed: I have reviewed the patient's information and concur with the finding and results of the pre-admission screen. Certification: I certify the patient for rehabilitation. - Patient Condition (1) S/P ORIF (open reduction internal fixation) fracture Status: Acute Code(s): Z96.7 - Presence of other bone and tendon implants; Z87.81 - Personal history of (healed) traumatic fracture Classification: Present on IRF Admission, IRF Tx That Should Address Diagnosis, Diagnosis Requiring Medical Follow Up (2) A-fib Status: Chronic Qualifiers: Atrial fibrillation type: chronic Qualified Code(s): I48.2 - Chronic atrial fibrillation Code(s): I48.91 - Unspecified atrial fibrillation Classification: Present on IRF Admission, IRF Tx That Should Address Diagnosis, Diagnosis Requiring Medical Follow Up (3) Essential (primary) hypertension Status: Chronic Code(s): I10 - Essential (primary) hypertension Classification: Present on IRF Admission, Diagnosis Requiring Medical Follow Up (4) Mitral valve regurgitation Status: Chronic Qualifiers: Cardiac valve disease etiology: nonrheumatic Qualified Code(s): I34.0 - Nonrheumatic mitral (valve) insufficiency Code(s): I34.0 - Nonrheumatic mitral (valve) insufficiency Classification: Present on IRF Admission, Diagnosis Requiring Medical Follow Up (5) Mitral valvular prolapse Status: Chronic Code(s): I34.1 - Nonrheumatic mitral (valve) prolapse Classification: Present on IRF Admission, Diagnosis Requiring Medical Follow Up (6) Atherosclerotic heart disease of [place] coronary artery without angina pectoris Status: Chronic Qualifiers: [place] vs. transplanted heart: [place] heart Qualified Code(s): I25.10 - Atherosclerotic heart disease of [place] coronary artery without angina pectoris Code(s): I25.10 - Atherosclerotic heart disease of [place] coronary artery without angina pectoris Classification: Present on IRF Admission, Diagnosis Requiring Medical Follow Up - Prior Functional Status Lives With: Alone Residence Type: Apartment/Private Home Assitive Devices: None Prior Functional Status: Indep. at home or school, Indep. w/ all home ADL, Indep. w/ IADL - Current Functional Status Current Level of Function: Current level of functioning indicates the patient is independent for eating, require supervision for grooming but total assistance for bathing, toileting and transfers as well as toilet transfers. She requires a rolling walker or from fluid walker for ambulation. Failed Alternative Therapy: Arrived from Acute Care Patient Requirements: The patient requires oversight by rehabilitation physician to manage their rehabilitation treatment plan and multidisciplinary approach to care that can only be provided in an IRF and requires a multidisciplinary approach to care, provided by professional PTs, OTs, STs, dieticians, RTs, rehabilitation nurses and is not available in lesser levels of care. Limitations Req: Mobility Impairment, ADL Impairment Physical Therapy Minutes: 90 Occupational Therapy Minutes: 90 Therapy: The patient is to receive therapy at least 5 days a week. - Complications/Comorbidities Impact on Functional Outcomes: This patient's atrial fibrillation as well as her underlying easy fatigability related to a significant illness this winter with 20 pound weight loss, will negatively impact her functional outcome. Barriers to Discharge: Weakness, Endurance, Medical Limitation - Plan to Avoid Complications Plan to Avoid Complications: The patient cannot receive this care in a lesser intensive setting such as Senior Care or Outpatient Therapy due to the patient requiring the following : This patient has multiple medical problems including history of coronary artery disease, atrial fibrillation with rapid ventricular response and hypertension. She requires 24 rehabilitation nursing monitoring of these medical conditions as well as a multidisciplinary approach with physical therapy and occupational therapy with medical supervision. This cannot be provided at a less intensive setting.
[2018-03-31 15:25] VITALS: BMI 18.3
[2018-03-31] MEDS: HYDROCODONE/APAP 5mg/325mg TABLET PO PRN (17:30)
[2018-03-31] MEDS: SENNA + DOCUSATE TABLET PO SCH (20:26)
[2018-03-31] MEDS: BRIMONIDINE 0.2% EYE DROPS 5ml OP SCH (20:30)
[2018-03-31] MEDS: APIXABAN 2.5 MG TABLET PO SCH (20:32)
[2018-03-31] MEDS ORDERED: MELATONIN 1 MG TABLET PO SCH (21:00)
[2018-04-01] MEDS: HYDROCODONE/APAP 5mg/325mg TABLET PO PRN ×3 (01:26→17:12)
[2018-04-01] MEDS: APIXABAN 2.5 MG TABLET PO SCH ×2 (08:47→22:02)
[2018-04-01] MEDS: DIGOXIN 125 MCG TABLET PO SCH (08:47)
[2018-04-01] MEDS: AMLODIPINE 5 MG TABLET PO SCH (08:48)
[2018-04-01] MEDS: BRIMONIDINE 0.2% EYE DROPS 5ml OP SCH ×2 (08:49→22:02)
[2018-04-01] MEDS: POLYETHYL GLYCOL 3350 17gm PACKET PO SCH (08:49)
[2018-04-01] MEDS: SENNA + DOCUSATE TABLET PO SCH ×2 (08:49→22:03)
[2018-04-01] MEDS ORDERED: ASPIRIN 325 MG TABLET PO SCH (09:00)
--- NOTE | 2018-04-01 14:27 | Consult Note ---
Consult Information - Data of Consult Consult date: 04/01/18 Requesting Physician: Rosendo Chahal MD Primary Care Provider: Patricia Morocho DO Family Provider: Carol Al - Consult Narrative Reason for consult: medical management History of present illness: Patient is a pleasant 88-year-old female who status post ORIF of the right hip fracture under the care of Dr. Soria on 03/29/18. He was operatively she did well , however, continued to require going therapy for postoperative strengthening. She was screened and accepted to the inpatient rehabilitation unit under the care of Dr. Chahal. Hospitalist services were consulted for medical management of her multiple existing comorbidities. Morning laboratory studies were reviewed, hemoglobin remained stable at 11.4, electrolytes are normal. Patient is seen and examined this morning following therapy. She is alert, oriented and pleasant. Reports that she slept 5 hours overnight, which is pretty good for the hospital, she states. She is pleased to have gotten rid of all of her tubes including IV, Hernandez, telemetry. Denies having any trouble breathing or GI concerns. Reports her bowels did move yesterday. Reports no pain postoperatively unless she is up ambulating or position changing. 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 cystoscopy and bladder repair. D&C x3. Lumpectomy w/radiation 1996. Tonsillectomy Family History: Patient's father drowned. Patient's mother at 93 of old age Family History: As Above - Social History Smoking status: Never smoker Substance use type: does not use Alcohol intake frequency: does not drink Housing: house Current occupational status: retired Current residence: Apartment/Private Home Social history: PCP Dr Carol Al Medications Home Medications Medication Instructions Recorded Confirmed Type Amlodipine 2.5 mg PO AM 03/28/18 03/31/18 History Brimonidine 0.2% Eye Drops 1 drop OP BID 03/28/18 03/31/18 History [Alphagan 0.2% Eye Drops] Digoxin 0.125 mg PO AM 03/28/18 03/31/18 History Eliquis 2.5 mg PO BID 03/28/18 03/31/18 History Fish Oil 1,000 mg Softgel 1,000 mg PO AM 03/28/18 03/31/18 History Glucosamine 1 tab PO BID 03/28/18 03/31/18 History Metoprolol Tartrate 25 mg PO BID 03/28/18 03/31/18 History Vit C/Ascorbate Calcium,Sodium 500 mg PO AM 03/28/18 03/31/18 History Aspirin 1 tab PO DAILY 03/29/18 03/31/18 History Cholecalciferol (Vitamin D3) 1 cap PO DAILY 03/29/18 03/31/18 History [Vitamin D3] Cyanocobalamin (Vitamin B-12) 500 mcg PO DAILY 03/29/18 03/31/18 History [B-12] Allergies Allergy/AdvReac Type Severity Reaction Status Date / Time iodine Allergy Vomiting Verified 03/28/18 04:50 Sulfa (Sulfonamide Allergy Verified 03/28/18 04:51 Antibiotics) Exam Vital Signs: Temperature 97.9 F 04/01/18 08:00 Pulse Rate 91 04/01/18 08:47 Respiratory Rate 16 04/01/18 08:00 Blood Pressure 123/71 04/01/18 08:00 Pulse Oximetry 90 04/01/18 08:00 Height/Weight/BMI: Height 1.63 m Weight 48.5 kg Body Mass Index 18.3 - Constitutional Present: no acute distress, well nourished, well developed - Routine HEENT Exam Eye: Present: EOMI ENT: Present: mucous membranes moist, dentition normal - Routine Respiratory Exam Present: CTA bilaterally. Absent: wheezes - Routine Cardiovascular Exam Present: RRR, S1, S2. Absent: murmur - Routine Abdominal Exam Present: soft, normoactive bowel sounds, non distended. Absent: tenderness - Routine Extremities Exam Present: normal capillary refill - Routine Skin Exam Present: intact, dry, warm - Routine Neurological Exam Present: alert, oriented X3, CN II-XII intact - Routine Psychiatric Exam Present: normal affect, cooperative Results - Labs CBC & Chem 7: 04/01/18 05:07 06/30/18 05:07 Assessment and Plan (1) S/P ORIF (open reduction internal fixation) fracture Current visit: Yes Status: Acute Assessment and Plan: Impression S/P ORIF- right hip A-fibulation HTN MVR OA Plan Agree with admission to inpatient rehabilitation under the care of Dr. Chahal for postoperative strengthening Hospital services will continue to follow patient medically manage existing comorbidities during her stay. Monitor hemoglobin that she does have mild postoperative anemia, hemoglobin stable 11.4 Eliquis was 2.5 milligrams twice a day for chronic anticoagulation, monitor for evidence of bleeding. Tylenol, and [place] as needed for pain control. Monitor blood pressure, continue on Lopressor 25 milligrams twice a day and Norvasc 5 milligrams daily MiraLAX and milk of magnesia are ordered for bowel motivation. However, patient is reluctant to utilize these that she does not want loose stools. Encourage patient to participate in unit activities for postoperative strengthening. Hospital services will continue to follow patient medically manage existing comorbidities. At time of discharge medical care will return to PCP in [place] , Dr. Grazyna Yu 04/01/2018-8:30 PM-I examined the patient independently. I reviewed this chart, the patient history, and the CUSTOMER [employer]PERATIONS INTERN's/PA's documented findings as above. We discussed and formulated the assessment and plan as above with the additions below.-Dr. Valle Patient was seen this evening in her room. She states she's feeling well. She is eating and drinking without difficulties. Her pain is well controlled. On exam she is alert and in no acute distress. Chest is clear to auscultation. Cardiovascular reveals a regular rate and rhythm. Abdomen is soft and nontender. Extremities reveal trace to +1 edema. Impression and plan Overall, the patient is doing well. Continue Eliquis for paroxysmal A. fib. Continue current home medications for hypertension. We'll change melatonin to when necessary at patient request. We'll check pre-albumin and consult the dietitian regarding the patient's low BMI I did talk with the patient about her plans after discharge. She stated that her children would like her to go live near her daughter in [place]. The patient states that she is likely to do this. DVT Prophylaxis: Eliquis Resuscitation Status: Full Code - Physician Narrative Narrative: Date: 04/01/18 Time: 1419 Hospital Course Summary Disclaimer: The visit summary below is not to be considered part of the above Progress Note. Hospital Course: Impression S/P ORIF- right hip A-fibulation HTN MVR OA Plan Agree with admission to inpatient rehabilitation under the care of Dr. Chahal for postoperative strengthening Hospital services will continue to follow patient medically manage existing comorbidities during her stay. Monitor hemoglobin that she does have mild postoperative anemia, hemoglobin stable 11.4 Eliquis was 2.5 milligrams twice a day for chronic anticoagulation, monitor for evidence of bleeding. Tylenol, and [place] as needed for pain control. Monitor blood pressure, continue on Lopressor 25 milligrams twice a day and Norvasc 5 milligrams daily MiraLAX and milk of magnesia are ordered for bowel motivation. However, patient is reluctant to utilize these that she does not want loose stools. Encourage patient to participate in unit activities for postoperative strengthening. Hospital services will continue to follow patient medically manage existing comorbidities. At time of discharge medical care will return to PCP in [place] , Dr. Grazyna Yu
[2018-04-02] MEDS: MELATONIN 1 MG TABLET PO PRN ×2 (00:21→21:42)
[2018-04-02] MEDS: SENNA + DOCUSATE TABLET PO SCH ×3 (02:28→21:44)
[2018-04-02] MEDS: HYDROCODONE/APAP 5mg/325mg TABLET PO PRN (07:50)
[2018-04-02] MEDS: BRIMONIDINE 0.2% EYE DROPS 5ml OP SCH ×3 (07:51→21:43)
[2018-04-02] MEDS: DIGOXIN 125 MCG TABLET PO SCH (08:58)
[2018-04-02] MEDS: AMLODIPINE 5 MG TABLET PO SCH (08:58)
[2018-04-02] MEDS: APIXABAN 2.5 MG TABLET PO SCH ×2 (09:01→21:43)
[2018-04-02] MEDS: POLYETHYL GLYCOL 3350 17gm PACKET PO SCH (09:04)
[2018-04-03] MEDS: HYDROCODONE/APAP 5mg/325mg TABLET PO PRN ×2 (01:26→10:01)
[2018-04-03] MEDS: DIGOXIN 125 MCG TABLET PO SCH (08:37)
[2018-04-03] MEDS: AMLODIPINE 5 MG TABLET PO SCH (08:38)
[2018-04-03] MEDS: APIXABAN 2.5 MG TABLET PO SCH ×2 (08:38→22:10)
[2018-04-03] MEDS: BRIMONIDINE 0.2% EYE DROPS 5ml OP SCH ×2 (09:54→22:10)
[2018-04-03] MEDS: POLYETHYL GLYCOL 3350 17gm PACKET PO SCH (09:54)
[2018-04-03] MEDS: SENNA + DOCUSATE TABLET PO SCH ×2 (09:54→22:10)
--- NOTE | 2018-04-03 11:02 | IRU Progress Note ---
- Subjective/Serverity of Illness Date: 04/03/18 Claudia was reassessed in her room on inpatient rehabilitation. She developed rapid ventricular response with her atrial fibrillation this morning which was rather prolonged. It is not clear if she was symptomatic or not. She indicates that she could tell when she is in a rapid heartbeat but it is not clear if she felt bad etc. She did not have any lightheadedness. It eventually converted back to atrial fibrillation with a controlled ventricular response. She blames this on being up a lot at night and sleeping poorly. At one point she had to wait 20 minutes before they were able to assist her with voiding. Admitted in addition, she complains of pain in the presacral area. Inspection and palpation of this reveals a reddish area which is blanchable. This is where the tenderness is. There is no fluctuance present. We will make every effort to keep her off of this area and use Mepilex etc. We will monitor this area. From a therapy standpoint, she is doing quite well. She is able to perform upper body dressing with modified independent level and lower body dressing with minimum assistance. Transfers are performed with standby assistance. She is walking with a front-wheeled walker with standby assistance. Uncertain distance at present. She is able to climb 12 steps with standby assistance. Exam Vital Signs: Temperature 97.3 F 04/03/18 10:09 Pulse Rate 69 04/03/18 10:14 Respiratory Rate 20 04/03/18 00:00 Blood Pressure 134/90 H 04/03/18 08:36 Pulse Oximetry 98 04/03/18 08:36 Height/Weight/BMI: Height 1.63 m Weight 48.5 kg Body Mass Index 18.3 - Constitutional Present: mild distress (with regard to anxiety. Also has discomfort in the presacral area.), well nourished, well developed - Routine HEENT Exam Eye: Present: EOMI. Absent: scleral injection - Routine Neck Exam Present: supple - Routine Respiratory Exam Present: CTA bilaterally. Absent: wheezes - Routine Cardiovascular Exam Present: S1, S2, irregularly irregular. Absent: murmur - Routine Abdominal Exam Present: soft, normoactive bowel sounds, non distended. Absent: tenderness - Routine Extremities Exam Present: no edema, normal capillary refill - Routine Skin Exam Present: dry, warm Comments: Palpation of the presacral area with nurse present indicates an area of blanchable redness. There are also some darker areas. This is the tender area. There is no open skin. No fluctuance is present. - Routine Neurological Exam Present: alert, oriented X3, CN II-XII intact - Routine Psychiatric Exam Present: normal affect, anxious Results IRU - Labs Labs: I have reviewed her laboratory findings and other chart data. Have reviewed telemetry strips as well indicating atrial fibrillation with RVR. IRU A/P (1) S/P ORIF (open reduction internal fixation) fracture Current visit: Yes Status: Acute Pain management appears to be adequate regarding the fracture. She is doing well from a functional standpoint. (2) A-fib Qualifiers: Atrial fibrillation type: chronic Qualified Code(s): I48.2 - Chronic atrial fibrillation Current visit: No Status: Chronic She did experience rapid ventricular response. Uncertain how symptomatic this was. Has resolved back to atrial fibrillation with controlled ventricular response at present. Management per hospitalist. She is on Eliquis. (3) Essential (primary) hypertension Current visit: No Status: Chronic (4) Mitral valve regurgitation Qualifiers: Cardiac valve disease etiology: nonrheumatic Qualified Code(s): I34.0 - Nonrheumatic mitral (valve) insufficiency Current visit: No Status: Chronic (5) Mitral valvular prolapse Current visit: No Status: Chronic (6) Atherosclerotic heart disease of [place] coronary artery without angina pectoris Qualifiers: [place] vs. transplanted heart: [place] heart Qualified Code(s): I25.10 - Atherosclerotic heart disease of [place] coronary artery without angina pectoris Current visit: No Status: Chronic Denies chest discomfort. DVT Prophylaxis: Eliquis Resuscitation Status: Full Code - Course Hospital Course: Rosendo Chahal MD: 04/03/18 11:08 Discomfort in presacral area with blanchable redness. Episode of RVR with atrial fib, now resolved to controlled response. She is on Eliquis. - Interventions to Obtain Goals PT Treatment Plan: Balance/Proprioception, Functional Activities, Gait Training , Patient/Family Education, Therapeutic Exercise OT Treatment Plan: ADL (Basic Care), Balance Training, IADL, Pt./Family Education, UE Functional Training Goals Progress/Modifications: Have discussed her redness and presacral irritation/pain with nursing staff. We will apply Mepilex and cushion to the area. In addition we will make every effort to taper off of this area and monitor carefully. With regard to the atrial fibrillation with rapid ventricular response, management per hospitalist. It is not clear how symptomatically this was. Her vital signs remained stable at present. She is on Eliquis. No chest pain is reported. Denies shortness of breath. Seems to be stable at present. Please note that the patient's individual plan of care was developed and documented today, requiring review of therapy notes, medical conditions and anticipated functional recovery. This required additional medical decision making with regard to interaction of the patient's medical issues with the anticipated functional recovery. Please see separate document
--- NOTE | 2018-04-03 11:13 | IRU Plan of Care ---
[facility] Overall Plan of Care - Date Date: 04/03/18 - Patient Impairments (1) S/P ORIF (open reduction internal fixation) fracture Code(s): Z96.7 - Presence of other bone and tendon implants; Z87.81 - Personal history of (healed) traumatic fracture Status: Acute Classification: Present on IRF Admission, IRF Tx That Should Address Diagnosis, Diagnosis Requiring Medical Follow Up (2) A-fib Qualifiers: Atrial fibrillation type: chronic Qualified Code(s): I48.2 - Chronic atrial fibrillation Code(s): I48.91 - Unspecified atrial fibrillation Status: Chronic Classification: Present on IRF Admission, IRF Tx That Should Address Diagnosis, Diagnosis Requiring Medical Follow Up (3) Atherosclerotic heart disease of [place] coronary artery without angina pectoris Qualifiers: [place] vs. transplanted heart: [place] heart Qualified Code(s): I25.10 - Atherosclerotic heart disease of [place] coronary artery without angina pectoris Code(s): I25.10 - Atherosclerotic heart disease of [place] coronary artery without angina pectoris Status: Chronic Classification: Present on IRF Admission, Diagnosis Requiring Medical Follow Up (4) Essential (primary) hypertension Code(s): I10 - Essential (primary) hypertension Status: Chronic Classification: Present on IRF Admission, Diagnosis Requiring Medical Follow Up - Relevant Changes Relevant Changes: No Reviewed: I have reviewed the patient's information and concur with the finding and results of the pre-admission screen. Certification: I certify the patient for rehabilitation. - Medical Prognosis Medical Prognosis: Good Vital Signs: Last Vital Signs Temp 97.3 F 04/03/18 10:09 Pulse 69 04/03/18 10:14 Resp 20 04/03/18 00:00 BP 134/90 H 04/03/18 08:36 Pulse Ox 98 04/03/18 08:36 - Anticipated Interventions Anticipated Interventions: The patient requires inpatient IRF care for PT, OT, and/or ST for residuals remaining from hip fracture resulting in muscular weakness and strength deficits. An individualized overall plan of care has been developed after careful review of the patient's preadmission screening, post admission physician evaluation and assessments of all therapy disciplines and/or other pertinent clinicians involved in treating the patient. This indicates medical necessity and rehabilitation necessity have been established through a thorough review of all available medical information. ROM Deficit: Right Lower Extremity - Current Functional Status Failed Alternative Therapy: Arrived from Acute Care Patient Requires: The patient requires oversight by rehabilitation physician to manage their rehabilitation treatment plan and multidisciplinary approach to care that can only be provided in an IRF and requires a multidisciplinary approach to care, provided by professional PTs, OTs, STs, rehabilitation nurses, and may require STs, dieticians, and RTS. This is not available in lesser levels of care. Physical Therapy Minutes: 90 Occupational Therapy Minutes: 90 Therapy: The patient is to receive therapy at least 5 days a week. - Anticipated LOS/Outcomes Anticipated Functional Outcome: It is anticipated the patient will be able to return her home at modified independent to independent level of functioning. She will require home health assistance for a time to reacclimate her to her home environment. It is anticipated that her medical status will be stable with regard to her atrial fibrillation and blood pressure. Anticipated Length of Stay (days): 5 Anticipated DC Destination: Home, Self Care, Home Health Service Home Safety Plan: The patient will be provided with the development of a Home Safety Plan for return to a home or home-like environment and and to ensure safety post discharge. - Plan to Avoid Complications Barriers to Attaining Goals: Endurance, Medical Limitation Plan to Avoid Complications: The patient cannot receive this care in a lesser intensive setting such as Residential or Outpatient Therapy due to the patient requiring the following : This patient has hypertension, history of underlying coronary artery disease and atrial fibrillation. She is on Eliquis. These findings require a multidisciplinary approach with PT and OT with medical supervision. This is not available at a less intensive level of care.
[2018-04-03] MEDS: MELATONIN 1 MG TABLET PO PRN (22:10)
[2018-04-04] MEDS: HYDROCODONE/APAP 5mg/325mg TABLET PO PRN ×2 (00:35→23:19)
[2018-04-04] MEDS: ACETAMINOPHEN 500 MG TABLET PO PRN (03:14)
[2018-04-04] MEDS: DIGOXIN 125 MCG TABLET PO SCH (08:16)
[2018-04-04] MEDS: APIXABAN 2.5 MG TABLET PO SCH ×2 (08:17→21:18)
[2018-04-04] MEDS: BRIMONIDINE 0.2% EYE DROPS 5ml OP SCH ×2 (08:18→21:18)
[2018-04-04] MEDS: AMLODIPINE 5 MG TABLET PO SCH (08:18)
[2018-04-04] MEDS: SENNA + DOCUSATE TABLET PO SCH ×2 (08:22→21:18)
[2018-04-04] MEDS: POLYETHYL GLYCOL 3350 17gm PACKET PO SCH (09:27)
--- NOTE | 2018-04-04 10:34 | IRU Progress Note ---
- Subjective/Serverity of Illness Date: 04/04/18 Ms. Naranjo was reassessed in her room today on inpatient rehabilitation. She seems to be functioning quite well. She wondered why her feet are edematous and wondered why her heart rate keeps jumping up. Review of telemetry indicates that she has had recurrent rapid ventricular response on several occasions, twice yesterday and once this morning. Some of these are related to being up and about but other symptoms occur at rest. They do appear to be symptomatic. However she is not overtly short of breath nor having any chest pains. She is on digoxin with dig level 0.8. Other labs appear to be stable. I discussed with Yolanda this morning with the hospitalist service and they will address as indicated. With regard to her edema, review of her weight indicates that she was 44 kg upon admission to acute care and is now 47 kg. I will discuss with the hospitalist service the possibility of adding on a low-dose diuretic. Her edema is likely multifactorial and related to hypoalbuminemia, dependency and possibly IV fluid administration previously. It is symptomatic from her perspective. From a therapy standpoint she is doing well. She is gaining confidence. She is able to perform upper and lower body dressing with standby assist to supervision level. She is able to perform transfers with standby assistance. She is able to ambulate with a front-wheeled walker 90 feet with standby assistance. Prealbumin is low. Digoxin level noted. Exam Vital Signs: Temperature 97.6 F 04/04/18 08:00 Pulse Rate 102 H 04/04/18 08:16 Respiratory Rate 14 04/04/18 08:00 Blood Pressure 141/88 H 04/04/18 08:00 Pulse Oximetry 95 04/03/18 22:04 Height/Weight/BMI: Height 1.63 m Weight 47 kg Body Mass Index 18.3 - Constitutional Present: well developed, thin Comments: Patient is a bit anxious at times. - Routine HEENT Exam Eye: Present: EOMI ENT: Present: mucous membranes dry - Routine Neck Exam Present: supple - Routine Respiratory Exam Present: decreased breath sounds, CTA bilaterally. Absent: wheezes - Routine Cardiovascular Exam Present: S1, S2, murmur, irregularly irregular - Routine Abdominal Exam Present: soft, normoactive bowel sounds, non distended. Absent: tenderness - Routine Extremities Exam Present: edema (both lower extremities) - Routine Skin Exam Present: dry, warm - Routine Neurological Exam Present: alert, oriented X3, CN II-XII intact - Routine Psychiatric Exam Present: normal affect, anxious Results IRU - Labs Labs: Labs reviewed. Weight is up. IRU A/P (1) S/P ORIF (open reduction internal fixation) fracture Current visit: Yes Status: Acute From a clinical standpoint her hip fracture is stable at the present time. Pain appears to be adequately controlled. She is progressing with therapy. (2) A-fib Qualifiers: Atrial fibrillation type: chronic Qualified Code(s): I48.2 - Chronic atrial fibrillation Current visit: No Status: Chronic Continues to have episodes of rapid ventricular response. These are symptomatic for her although she is not hypotensive. She remains on epixaban. Discussed with the hospitalist service who will review the situation. (3) Atherosclerotic heart disease of [place] coronary artery without angina pectoris Qualifiers: [place] vs. transplanted heart: [place] heart Qualified Code(s): I25.10 - Atherosclerotic heart disease of [place] coronary artery without angina pectoris Current visit: No Status: Chronic (4) Essential (primary) hypertension Current visit: No Status: Chronic (5) Edema Qualifiers: Edema type: localized Qualified Code(s): R60.0 - Localized edema Current visit: Yes Status: Acute She has bilateral 1+ lower extremity edema. She has hypoalbuminemia. Her weight is up 3 kg since admission. I will discuss with the hospitalist service with regard to administration of diuretic. DVT Prophylaxis: Eliquis Resuscitation Status: Full Code - Course Hospital Course: Rosendo Chahal MD: 04/03/18 11:08 Discomfort in presacral area with blanchable redness. Episode of RVR with atrial fib, now resolved to controlled response. She is on Eliquis. 04/04/18 10:39 Continues to have episodes of rapid ventricular response. Remains on Eliquis. Denies dyspnea. Progressing with therapy. Peripheral edema noted along with weight gain. - Interventions to Obtain Goals PT Treatment Plan: Balance/Proprioception, Functional Activities, Gait Training , Patient/Family Education, Therapeutic Exercise OT Treatment Plan: ADL (Basic Care), Balance Training, IADL, Pt./Family Education, UE Functional Training Goals Progress/Modifications: I will discuss with the hospitalist service the possibility of adding on diuretics. Otherwise she seems to be medically stable. She does have episodes of rapid ventricular response with her atrial fibrillation. She is on digoxin. I discussed with the hospitalist service and they will address as indicated. She denies any chest pain and denies shortness of breath. She is tolerating therapy well.
[2018-04-04] MEDS ORDERED: DIGOXIN 125 MCG TABLET PO ONE (13:40)
--- NOTE | 2018-04-04 13:46 | Cardiology Consult Note ---
<Kayli Sanon - Last Filed: 04/06/18 13:13> History of Present Illness Consult date: 04/04/18 Requesting physician: Monie Valle Consult reason: atrial fibrillation Chief complaint: A Fib with RVR History of present illness: Connie is a 88 year old female patient of Dr. Haro with a history of recently diagnosed atrial fibrillation on Eliquis, CAD, HTN, mitral valve prolapse and regurgitation who was seen in consultation for pre-operative surgical clearance and is status post ORIF of the right hip fracture by Dr. Soria on 03/29/18. She continued to require ongoing therapy for postoperative strengthening and was accepted to the inpatient rehabilitation unit under the care of Dr. Chahal. The past couple of days she has had some breakthrough RVR despite her BB and Digoxin and Dr. Heck is consulted for management and we appreciate the consult. [facility] Patient Stated Medical History Cerebrovascular Accident No Paralysis No Seizures No Syncope No Dental Problems Yes: implants Glaucoma Yes: right eye Angina No Cardiac Arrhythmia Yes Congestive Heart Failure No Coronary Artery Disease Yes: previous [place] Heart Murmur No Hypertension Yes Hypotension No Myocardial Infarction No Rheumatic Fever No Valvular Heart Disease Yes Other Cardiology No Asthma No Bronchitis No Chronic Obstructive Pulmonary No Disease (COPD) Pneumonia Yes Pulmonary Edema No Pulmonary Embolism No Sleep Apnea No Tuberculosis No Other Respiratory No Diabetes Mellitus Type 1 No Diabetes Mellitus Type 2 No Cirrhosis No Constipation Yes Gastroesophageal Reflux No Disease Gastrointestinal Bleeding No Hepatitis No Hiatal Hernia No Obstructive Bowel No Ulcer No Other GI No Hx Incontinence Yes Other Musculoskeletal No Other Infectious Yes: malaria, hepititis B Depression No Clinic Medical History (Last Updated 03/28/18 @ 04:55 by Koko Martin MD) Atrial fibrillation with RVR (Acute Medical) Newly diagnosed 01/2018 Medical History Updates: H/o [place] (age 60's), HTN, h/o mild asthma, breast cancer (intraductal), MVP, mild mitral regurgitation, atrial fibrillation, glaucoma, cataracts not yet operated upon Surgical History: Appendectomy 1965. cystoscopy and bladder repair. D&C x3. Lumpectomy w/radiation 1996. Tonsillectomy Family History: The patient's father drowned. Her mother of old age around age 93. - Social History Smoking status: Never smoker second hand exposure: No Substance use type: does not use Alcohol intake: never Alcohol intake frequency: does not drink Housing: house Household members: none Current occupational status: retired Does patient use chewing tobacco?: No Current residence: Apartment/Private Home Medications Home Medications Medication Instructions Recorded Confirmed Type Brimonidine 0.2% Eye Drops 1 drop OP BID 03/28/18 03/31/18 History [Alphagan 0.2% Eye Drops] Digoxin 0.125 mg PO AM 03/28/18 03/31/18 History Eliquis 2.5 mg PO BID 03/28/18 03/31/18 History Fish Oil 1,000 mg Softgel 1,000 mg PO AM 03/28/18 03/31/18 History Glucosamine 1 tab PO BID 03/28/18 03/31/18 History Vit C/Ascorbate Calcium,Sodium 500 mg PO AM 03/28/18 03/31/18 History Cholecalciferol (Vitamin D3) 1 cap PO DAILY 03/29/18 03/31/18 History [Vitamin D3] Cyanocobalamin (Vitamin B-12) 500 mcg PO DAILY 03/29/18 03/31/18 History [B-12] Hydrocodone/APAP 5/325 [[place]cell 1 - 2 tab PO Q6H PRN #30 tab 04/07/18 Rx 5/325] Lisinopril [Prinivil] 5 mg PO DAILY #30 tab 04/07/18 Rx Melatonin 3 mg PO HS PRN tab 04/07/18 Rx Metoprolol Tartrate 50 mg PO BID #60 tab 04/07/18 Rx Milk of Magnesia [Mom] 30 ml PO DAILY PRN udc 04/07/18 Rx PEG 3350 17gm PACKET [Miralax] 17 gm PO DAILY packet 04/07/18 Rx Allergies Allergy/AdvReac Type Severity Reaction Status Date / Time iodine Allergy Vomiting Verified 04/14/18 12:13 Sulfa (Sulfonamide Allergy Verified 04/14/18 12:13 Antibiotics) Exam Vital signs: Temperature 97.6 F 04/04/18 08:00 Pulse Rate 102 H 04/04/18 08:16 Respiratory Rate 14 04/04/18 08:00 Blood Pressure 141/88 H 04/04/18 08:00 Pulse Oximetry 95 04/03/18 22:04 - Constitutional cachectic - Routine HEENT Exam Head: Present: normocephalic ENT: Present: mucous membranes dry - Routine Neck Exam Absent: JVD, carotid bruit - Routine Chest/Breast/Axilla Exam Chest wall: Absent: tenderness - Routine Respiratory Exam Present: CTA bilaterally. Absent: dyspnea, rales - Routine Cardiovascular Exam Present: murmur, irregularly irregular - Routine Abdominal Exam Present: soft, non tender - Routine Extremities Exam Present: edema - Routine Skin Exam Present: intact, dry, warm - Routine Neurological Exam Present: alert, oriented X3 - Routine Psychiatric Exam Present: normal affect Results 04/04/18 04:15 04/04/18 04:16 Cardiac Enzymes 04/04/18 Range/Units 04:16 AST 25 (14-36) U/L CBC 04/04/18 Range/Units 04:15 WBC 7.1 (4.5-11.0) T/MM3 RBC 3.88 L (4.00-5.20) M/MM3 Hgb 10.9 L (12-16) GM/DL Hct 34.4 L (36-46) % Plt Count 257 D (130-400) T/MM3 Neut # (Auto) 4.0 (1.8-7.7) T/MM3 Lymph # (Auto) 2.0 (1-4.8) T/MM3 [place] # (Auto) 0.8 (0-0.8) T/MM3 Eos # (Auto) 0.2 (0-0.5) T/MM3 Baso # (Auto) 0.0 (0-0.2) T/MM3 Comprehensive Metabolic Panel 04/04/18 Range/Units 04:16 Sodium 139 (136-146) MEQ/L Potassium 4.0 (3.6-5) MEQ/L Chloride 101 (98-107) MEQ/L Carbon Dioxide 32 H (22-30) MEQ/L BUN 14.0 (7-17) MG/DL Creatinine 0.5 L (0.7-1.2) mg/dL Glucose 85 (65-110) MG/DL Calcium 8.6 (8.4-10.2) MG/DL AST 25 (14-36) U/L ALT 18 (1-35) U/L Alkaline Phosphatase 78 (38-126) U/L Total Protein 5.4 L (6.3-8.2) g/dL Albumin 2.6 L (3.5-5.0) g/dL Intake and Output 04/03/18 04/04/18 04/04/18 22:59 06:59 14:59 Intake Total 360 / 360 360 / 360 Balance 360 / 360 360 / 360 Intake: Oral 360 / 360 360 / 360 Other: Urine Appearance Clear Clear Cloudy Urine Color Yellow Yellow Straw Urine Odor Normal Normal Normal # Voids 1 1 1 Weight 103 lb 9.876 oz Patient Weight 04/05/18 06:59 Weight 103 lb 9.876 oz - Imaging and Cardiology Imaging & Cardiology Narrative: -Echo 03/07/2018: EF 55-60%, mild LVH, mitral valve prolapse of anterior leaflet, mild mitral regurgitation, moderate tricuspid regurgitation, mildly elevated PA pressure 30-35mmHg, atrial fibrillation. -Nuclear Stress: Good exercise capacity, negative for angina, atrial fibrillation with RVR, without diagnostic ischemic changes on EKG, nonspecific ST changes are noted at baseline, normal post stress EF. -Carotid duplex:Right ICA 30% stenosis, Left ICA 20-25% stenosis Date of Exam: 03/28/18 Type of Exam(s): US echo doppler complete DATE OF PROCEDURE: March 28, 2018 REFERRING PHYSICIAN: Dr. Wale Maxwell This is a two-dimensional echo with spectral Doppler, color-flow and M-mode. It was obtained in a patient with atrial fibrillation. Left atrial dimension is normal. Left ventricle end-diastolic dimension is normal. Left ventricle wall thickness is normal. LV systolic function is normal with ejection fraction of about 60%. Right atrium is dilated. Right ventricle is normal. Aortic root dimension is normal. Mitral annulus is calcified. Mitral valve leaflets are sclerotic with no stenosis. Mild bileaflet mitral valve prolapse is present. Mild mitral regurgitation is present. Aortic valve shows fibrocalcific changes with no stenosis or insufficiency. Tricuspid valve shows moderate tricuspid regurgitation with mild pulmonary hypertension with estimated pulmonary artery systolic pressure of 37. Pulmonary valve shows mild pulmonary insufficiency. There is no pericardial effusion. IMPRESSION 1. Normal LV systolic function with ejection fraction of 60%. 2. Mitral annulus calcification with mitral sclerosis, mild mitral regurgitation, and mild bileaflet mitral valve prolapse. 3. Aortic sclerosis. 4. Moderate tricuspid regurgitation with mild pulmonary hypertension with estimated pulmonary artery systolic pressure of 37. 5. Mild pulmonary insufficiency. 6. Right atrial dilation. 04/04/18 13:54 Assessment and Plan - Assessment and Plan (1) A-fib Status: Chronic Breakthrough RVR, with activity and rest - denies dyspnea or chest pain - Digoxin level 0.8 today - Give additional Digoxin 0.125mg po today and tomorrow - Repeat Digoxin level on 04/06/18 - Continue Eliquis 2.5mg BID - Monitor Telemetry (2) Hip fracture requiring operative repair Problem details: Right subcapital hip fracture Status: Acute (3) Essential (primary) hypertension Status: Chronic Stop Amlodipine due to LE edema - Start Lisinopril 5mg daily for BP - Continue to monitor (4) Mitral valve regurgitation Status: Chronic Hospital Course Summary Disclaimer: The visit summary below is not to be considered part of the above Progress Note. Hospital Course: Impression S/P ORIF- right hip A-fibulation HTN MVR OA Plan Agree with admission to inpatient rehabilitation under the care of Dr. Chahal for postoperative strengthening Hospital services will continue to follow patient medically manage existing comorbidities during her stay. Monitor hemoglobin that she does have mild postoperative anemia, hemoglobin stable 11.4 Eliquis was 2.5 milligrams twice a day for chronic anticoagulation, monitor for evidence of bleeding. Tylenol, and [place] as needed for pain control. Monitor blood pressure, continue on Lopressor 25 milligrams twice a day and Norvasc 5 milligrams daily MiraLAX and milk of magnesia are ordered for bowel motivation. However, patient is reluctant to utilize these that she does not want loose stools. Encourage patient to participate in unit activities for postoperative strengthening. Hospital services will continue to follow patient medically manage existing comorbidities. At time of discharge [place] <Kendall Heck - Last Filed: 04/19/18 12:37> [facility] Patient Stated Medical History Cerebrovascular Accident No Paralysis No Seizures No Syncope No Dental Problems Yes: implants Glaucoma Yes: right eye Angina No Cardiac Arrhythmia Yes Congestive Heart Failure No Coronary Artery Disease Yes: previous [place] Heart Murmur No Hypertension Yes Hypotension No Myocardial Infarction No Rheumatic Fever No Valvular Heart Disease Yes Other Cardiology No Asthma No Bronchitis No Chronic Obstructive Pulmonary No Disease (COPD) Pneumonia Yes Pulmonary Edema No Pulmonary Embolism No Sleep Apnea No Tuberculosis No Other Respiratory No Diabetes Mellitus Type 1 No Diabetes Mellitus Type 2 No Cirrhosis No Constipation Yes Gastroesophageal Reflux No Disease Gastrointestinal Bleeding No Hepatitis No Hiatal Hernia No Obstructive Bowel No Ulcer No Other GI No Hx Incontinence Yes Other Musculoskeletal No Other Infectious Yes: malaria, hepititis B Depression No Clinic Medical History (Last Reviewed 04/14/18 @ 12:13 by HANY Draper) Atrial fibrillation with RVR (Acute Medical) Newly diagnosed 01/2018 Exam Vital signs: Temperature 98.0 F 04/07/18 16:00 Pulse Rate 71 04/07/18 16:00 Respiratory Rate 18 04/07/18 16:00 Blood Pressure 157/72 H 04/07/18 16:00 Pulse Oximetry 96 04/07/18 16:00 Results 04/07/18 13:11 04/04/18 04:16 Assessment and Plan - Attestation Attestation Narrative: 04/19/18 12:37 Recommendation After examining the patient I agree with the above assessment. I am involved in the formulation of the patient's plan of care. - Assessment and Plan (1) Hip fracture requiring operative repair Problem details: Right subcapital hip fracture Status: Acute (2) A-fib Status: Chronic (3) Essential (primary) hypertension Status: Chronic (4) Mitral valve regurgitation Status: Chronic Hospital Course Summary Disclaimer: The visit summary below is not to be considered part of the above Progress Note.
[2018-04-04] MEDS: LISINOPRIL 5 MG TABLET PO SCH (15:30)
--- NOTE | 2018-04-04 17:29 | Progress Note ---
- Date 04/04/18 Subjective: Claudia is seen today in follow up. She is seen while sitting on the edge of bed, reading her mail. She reports that she slept very well last night but continues to complain of fatigue. She denies any chest pain, shortness of breath, abdominal pain, nausea, vomiting or dysuria. She has been noted to be in a-fib with RVR off and on over the past [address] Heck was consulted and recommended giving an additional dose of digoxin 0.125mg today as her digoxin level was only 0.8. He also started lisinopril 5mg for additional blood pressure control. Her appetite remains stable and bowels are moving. Objective Vital signs: Temperature 97.6 F 04/04/18 08:00 Pulse Rate 68 04/04/18 14:38 Respiratory Rate 16 04/04/18 14:38 Blood Pressure 111/65 04/04/18 14:38 Pulse Oximetry 98 04/04/18 14:38 Rhythm: Atrial Fibrillation with Normal Ventricular Rate Height/Weight/BMI: Height 5 ft 4 in Weight 103 lb 9.876 oz Body Mass Index 18.3 Comments: Sitting on edge of bed reading mail. - Constitutional Present: no acute distress, well nourished, well developed, thin, disheveled - Routine HEENT Exam Head: Present: normocephalic, atraumatic Eye: Present: PERRL. Absent: conjunctival icterus ENT: Present: mucous membranes moist, oropharynx clear - Routine Respiratory Exam Present: CTA bilaterally. Absent: respiratory distress, wheezes - Routine Cardiovascular Exam Present: irregularly irregular - Routine Abdominal Exam Present: soft, normoactive bowel sounds, non distended - Routine Extremities Exam Present: edema (1+), full ROM, pulses intact - Routine Back/Spine/Pelvis Exam Back/Spine: Present: full ROM. Absent: vertebral tenderness - Routine Musculoskeletal Exam Musculoskeletal: Present: no clubbing or cyanosis, moving extremities well - Routine Skin Exam Present: intact, dry, warm - Routine Neurological Exam Present: alert, moving all extremities, hearing grossly intact, normal speech - Routine Lymphatic Exam Lymphatic: Absent: lymphedema - Routine Psychiatric Exam Present: cooperative Results - Labs CBC & Chem 7: 04/04/18 04:15 04/04/18 04:16 Assessment and Plan (1) S/P ORIF (open reduction internal fixation) fracture Current visit: Yes Status: Acute Assessment and Plan: Impression S/P ORIF- right hip A-fibulation with episodes of RVR. Hypertension MVR OA Plan - 04/04/18 Multiple brief episodes of a-fib with RVR. Patient remained asymptomatic. Patient placed on telemetry. Continue to monitor closely. Dr. eHck consulted and recommended additional dose of digoxin 0.125mg x 1 dose now and initiation of lisinopril 5mg daily for additional blood pressure control. Hemoglobin slightly decreased but stable. Will continue to monitor periodically throughout admission. Continue Eliquis 2.5 milligrams twice a day for chronic anticoagulation, monitor for evidence of bleeding. Tylenol, and [place] as needed for pain control. MiraLAX and milk of magnesia are ordered for bowel motivation. However, patient is reluctant to utilize these that she does not want loose stools. Encourage patient to participate in unit activities for postoperative strengthening. Melatonin as needed for insomnia per patient request. Prealbumin low at 5.7 - moderate to severe malnutrition, protein calorie. Dietary working with patient. DVT Prophylaxis: Eliquis Resuscitation Status: Full Code - Time spent with patient Time with patient PN: 25 minutes - Physician Narrative Physician: Monie Valle MD Narrative: Date: 04/04/18 Time: 1726 Hospital Course Summary Disclaimer: The visit summary below is not to be considered part of the above Progress Note. Hospital Course: Impression S/P ORIF- right hip A-fibulation HTN MVR OA Plan Agree with admission to inpatient rehabilitation under the care of Dr. Chahal for postoperative strengthening Hospital services will continue to follow patient medically manage existing comorbidities during her stay. Monitor hemoglobin that she does have mild postoperative anemia, hemoglobin stable 11.4 Eliquis was 2.5 milligrams twice a day for chronic anticoagulation, monitor for evidence of bleeding. Tylenol, and [place] as needed for pain control. Monitor blood pressure, continue on Lopressor 25 milligrams twice a day and Norvasc 5 milligrams daily MiraLAX and milk of magnesia are ordered for bowel motivation. However, patient is reluctant to utilize these that she does not want loose stools. Encourage patient to participate in unit activities for postoperative strengthening. Hospital services will continue to follow patient medically manage existing comorbidities. At time of discharge medical care will return to PCP in [place] , Dr. Grazyna Yu Plan - 04/04/18 Multiple brief episodes of a-fib with RVR. Patient remained asymptomatic. Patient placed on telemetry. Continue to monitor closely. Dr. Heck consulted and recommended additional dose of digoxin 0.125mg x 1 dose now and initiation of lisinopril 5mg daily for additional blood pressure control. Hemoglobin slightly decreased but stable. Will continue to monitor periodically throughout admission. Continue Eliquis 2.5 milligrams twice a day for chronic anticoagulation, monitor for evidence of bleeding. Tylenol, and [place] as needed for pain control. MiraLAX and milk of magnesia are ordered for bowel motivation. However, patient is reluctant to utilize these that she does not want loose stools. Encourage patient to participate in unit activities for postoperative strengthening. Melatonin as needed for insomnia per patient request. Prealbumin low at 5.7 - moderate to severe malnutrition, protein calorie. Dietary working with patient.
[2018-04-05] MEDS: ACETAMINOPHEN 500 MG TABLET PO PRN (02:08)
[2018-04-05] MEDS: APIXABAN 2.5 MG TABLET PO SCH ×2 (08:06→20:42)
[2018-04-05] MEDS: LISINOPRIL 5 MG TABLET PO SCH (08:06)
[2018-04-05] MEDS: DIGOXIN 125 MCG TABLET PO SCH (08:08)
[2018-04-05] MEDS: BRIMONIDINE 0.2% EYE DROPS 5ml OP SCH ×2 (08:08→20:42)
[2018-04-05] MEDS: SENNA + DOCUSATE TABLET PO SCH ×2 (08:31→20:42)
[2018-04-05] MEDS: POLYETHYL GLYCOL 3350 17gm PACKET PO SCH (08:31)
[2018-04-05] MEDS ORDERED: DIGOXIN 125 MCG TABLET PO ONE (09:00)
[2018-04-05] MEDS: MELATONIN 1 MG TABLET PO PRN (20:40)
[2018-04-05] MEDS: HYDROCODONE/APAP 5mg/325mg TABLET PO PRN (20:41)
[2018-04-06] MEDS: ACETAMINOPHEN 500 MG TABLET PO PRN ×2 (04:52→14:29)
[2018-04-06] MEDS: DIGOXIN 125 MCG TABLET PO SCH (08:41)
[2018-04-06] MEDS: SENNA + DOCUSATE TABLET PO SCH ×2 (08:42→20:29)
[2018-04-06] MEDS: LISINOPRIL 5 MG TABLET PO SCH (08:43)
[2018-04-06] MEDS: APIXABAN 2.5 MG TABLET PO SCH ×2 (08:43→20:29)
[2018-04-06] MEDS: BRIMONIDINE 0.2% EYE DROPS 5ml OP SCH ×2 (08:44→20:31)
[2018-04-06] MEDS: POLYETHYL GLYCOL 3350 17gm PACKET PO SCH (09:43)
--- NOTE | 2018-04-06 10:50 | IRU Progress Note ---
- Subjective/Serverity of Illness Date: 04/06/18 Ms. Naranjo was interviewed and examined in her room on inpatient rehabilitation. She is doing exceptionally well with therapy. However she states that she lacks confidence in going home. She believes strongly that she needs to be in a facility or at least with someone for the next several weeks. From a therapy standpoint she is doing well. Grooming is independent. Bathing is with standby assistance. Upper body dressing is now independent and lower body dressing with standby assistance. Transfers are performed for occupational therapy at modified independent level. Physical therapy transfers are at standby assist level. She is able to ambulate with a front-wheeled walker 340 feet with standby assistance. I reviewed her telemetry strips. She had another episode of rapid ventricular response yesterday morning around 8 AM. This was likely related to walking to the dining area. She has had no chest discomfort. She was seen by Dr. Heck recommended increasing digoxin for a couple of days and reassessing a digoxin level. In addition he recommended discontinuing amlodipine and starting lisinopril in view of the peripheral edema. She reports that she slept better last night. Her weight is a bit down today and her edema is improved. Exam Vital Signs: Temperature 98.1 F 04/06/18 08:00 Pulse Rate 130 H 04/06/18 08:41 Respiratory Rate 14 04/06/18 08:00 Blood Pressure 110/75 04/06/18 08:00 Pulse Oximetry 96 04/06/18 08:00 Height/Weight/BMI: Height 1.63 m Weight 47 kg Body Mass Index 18.3 - Constitutional Present: well developed, thin. Absent: well nourished Comments: anxious - Routine HEENT Exam Eye: Present: EOMI ENT: Present: mucous membranes moist - Routine Neck Exam Present: supple - Routine Respiratory Exam Present: decreased breath sounds, CTA bilaterally. Absent: wheezes - Routine Cardiovascular Exam Present: S1, S2, irregularly irregular. Absent: murmur - Routine Abdominal Exam Present: soft, normoactive bowel sounds, non distended. Absent: tenderness - Routine Extremities Exam Present: edema (1+ bilateral) - Routine Skin Exam Present: dry, warm - Routine Neurological Exam Present: alert, oriented X3, CN II-XII intact - Routine Psychiatric Exam Present: cooperative, anxious Results IRU - Labs Labs: I have reviewed other providers notes as well as the electrocardiogram demonstrating atrial flutter/fibrillation. Have reviewed telemetry strips and lab work. IRU A/P (1) S/P ORIF (open reduction internal fixation) fracture Current visit: Yes Status: Acute Clinically she is doing very well with regard to the fracture and repair. She is able to ambulate with standby assistance a considerable distance. Her pain appears to be adequately controlled. (2) A-fib Qualifiers: Atrial fibrillation type: chronic Qualified Code(s): I48.2 - Chronic atrial fibrillation Current visit: No Status: Chronic She is in chronic/persistent atrial fibrillation with occasional episodes of rapid ventricular response. Was seen by cardiology who recommended increasing the digoxin for a couple of days. In addition lisinopril was started and amlodipine discontinued. (3) Atherosclerotic heart disease of [place] coronary artery without angina pectoris Qualifiers: [place] vs. transplanted heart: [place] heart Qualified Code(s): I25.10 - Atherosclerotic heart disease of [place] coronary artery without angina pectoris Current visit: No Status: Chronic (4) Essential (primary) hypertension Current visit: No Status: Chronic (5) Edema Qualifiers: Edema type: localized Qualified Code(s): R60.0 - Localized edema Current visit: Yes Status: Acute Edema persists but is improved. (6) Malnutrition Qualifiers: Malnutrition type: protein-calorie malnutrition Current visit: Yes Status: Chronic Patient has evidence for malnutrition on the basis of low BMI, reduced prealbumin and albumin and reduced intake. Efforts are underway with regard to increasing oral intake and improving nutrition. DVT Prophylaxis: Eliquis Resuscitation Status: Full Code - Course Hospital Course: Rosendo Chahal MD: 04/03/18 11:08 Discomfort in presacral area with blanchable redness. Episode of RVR with atrial fib, now resolved to controlled response. She is on Eliquis. 04/04/18 10:39 Continues to have episodes of rapid ventricular response. Remains on Eliquis. Denies dyspnea. Progressing with therapy. Peripheral edema noted along with weight gain. 04/06/18 10:52 Was seen by cardiology. Digoxin increased temporarily. Amlodipine stopped due to edema. Lisinopril started for blood pressure. Doing very well with therapy but lacks confidence in going home. - Interventions to Obtain Goals PT Treatment Plan: Balance/Proprioception, Functional Activities, Gait Training , Patient/Family Education, Therapeutic Exercise OT Treatment Plan: ADL (Basic Care), Balance Training, IADL, Pt./Family Education, UE Functional Training Goals Progress/Modifications: I reviewed the patient's overall situation. She is improved with regard to therapy and ability to care for herself. However, she lacks confidence in going home. She is doing very well however with ADLs and ambulation. In addition, the patient's edema is improved since stopping the amlodipine. Had an episode of RVR yesterday morning. Cardiology did see the patient and increased the digoxin temporarily.
--- NOTE | 2018-04-06 13:16 | Cardiology Progress Note ---
<TalitaKayli chavira M - Last Filed: 04/06/18 17:28> Subjective Principal diagnosis: A FIB RVR Interval history: Connie is seen in follow up for A Fib with RVR. She is in the wheel chair in her room on IRU. She has many questions regarding her EKG and plans for management. She denies chest pain, pressure, dyspnea, dizziness. Exam Vital signs: Temperature 98.1 F 04/06/18 08:00 Pulse Rate 130 H 04/06/18 08:41 Respiratory Rate 14 04/06/18 08:00 Blood Pressure 110/75 04/06/18 08:00 Pulse Oximetry 96 04/06/18 08:00 Inpatient Medications: Generic Name Dose Route Start Last Admin Trade Name Freq PRN Reason Stop Dose Admin Acetaminophen 500 - 1,000 mg 03/31/18 15:17 04/06/18 04:52 Tylenol PO 1,000 mg Q6H PRN Administration Discomfort Hydrocodone Bitart/Acetaminophen 1 - 2 tab 03/31/18 15:17 04/05/18 20:41 Huron 5/325 PO 2 tab Q6H PRN Administration Pain Apixaban 2.5 mg 03/31/18 21:00 04/06/18 08:43 Eliquis PO 2.5 mg BID [facility] Administration Brimonidine Tartrate 1 drop 03/31/18 21:00 04/06/18 08:44 Alphagan 0.2% Eye Drops OP 1 drop BID [facility] Administration Digoxin 125 mcg 04/01/18 09:00 04/06/18 08:41 Lanoxin PO 125 mcg DAILY [facility] Administration Lisinopril 5 mg 04/04/18 14:15 04/06/18 08:43 Prinivil PO 5 mg DAILY [facility] Administration Magnesium Hydroxide 30 ml 03/31/18 15:17 Mom PO DAILY PRN Constipation Melatonin 3 mg 04/01/18 20:25 04/05/18 20:40 Melatonin PO 3 mg HS PRN Administration Insomnia Metoprolol Tartrate 25 mg 03/31/18 17:30 04/06/18 08:42 Lopressor PO 25 mg BIDWM [facility] Administration Polyethylene Glycol 17 gm 04/01/18 09:00 04/06/18 09:43 Miralax PO Not Given DAILY [facility] Senna/Docusate Sodium 2 tab 03/31/18 21:00 04/06/18 08:42 Senna Plus Tablet PO 1 tab BID [facility] Administration Discontinued Medications Generic Name Dose Route Start Last Admin Trade Name Daydayq PRN Reason Stop Dose Admin Amlodipine Besylate 5 mg 04/01/18 09:00 04/04/18 08:18 Norvasc PO 5 mg DAILY [facility] Administration Aspirin 325 mg 04/01/18 09:00 Asa PO DAILY [facility] Digoxin 125 mcg 04/04/18 13:40 04/04/18 14:33 Lanoxin PO 04/04/18 13:41 125 mcg O ONE Administration Digoxin 125 mcg 04/05/18 09:00 04/05/18 08:06 Lanoxin PO 04/05/18 09:01 125 mcg O ONE Administration Melatonin 3 mg 03/31/18 21:00 03/31/18 20:32 Melatonin PO 3 mg HS [facility] Administration Morphine Sulfate 2 - 10 mg 03/31/18 15:17 Morphine Sulfate Inj IVP Q1H PRN Pain Pharmacy Consult 1 each 03/31/18 15:17 Pharmacy Consult - Fall Risk 03/31/18 15:18 ONE TIME ONE - Constitutional no acute distress, cachectic, cooperative - Routine HEENT Exam Head: Present: normocephalic ENT: Present: mucous membranes moist - Routine Neck Exam Absent: JVD, carotid bruit - Routine Chest/Breast/Axilla Exam Chest wall: Absent: tenderness - Routine Respiratory Exam Present: CTA bilaterally. Absent: dyspnea, rales, wheezes - Routine Cardiovascular Exam Present: murmur, irregular rhythm - Routine Abdominal Exam Present: soft, non tender - Routine Extremities Exam Present: no edema - Routine Skin Exam Present: intact, dry, warm - Routine Neurological Exam Present: alert, oriented X3 - Routine Psychiatric Exam Present: normal affect, normal thought process Results 04/04/18 04:15 04/04/18 04:16 Intake and Output 04/05/18 04/06/18 04/06/18 22:59 06:59 14:59 Intake Total 358 / 358 Balance 358 / 358 Intake: Oral 358 / 358 Other: Urine Appearance Clear Urine Color Yellow Yellow Yellow Urine Odor Normal Normal Stool Color Brown Stool Consistency Formed Size of Bowel Movement Moderate # Voids 1 1 1 # Bowel Movements 1 Assessment and Plan - Assessment and Plan (1) A-fib Status: Chronic (2) Hip fracture requiring operative repair Problem details: Right subcapital hip fracture Status: Acute (3) Essential (primary) hypertension Status: Chronic (4) Mitral valve regurgitation Status: Chronic - Assessment and Plan 04/04/18 A-fib Current visit: No Status: Chronic Breakthrough RVR, with activity and rest - denies dyspnea or chest pain - Digoxin level 0.8 today - Give additional Digoxin 0.125mg po today and tomorrow - Repeat Digoxin level on 04/06/18 - Continue Eliquis 2.5mg BID - Monitor Telemetry Hip fracture requiring operative repair Problem details: Right subcapital hip fracture Current visit: No Status: Acute Essential (primary) hypertension Current visit: No Status: Chronic Stop Amlodipine due to LE edema - Start Lisinopril 5mg daily for BP - Continue to monitor Mitral valve regurgitation Current visit: No Status: Chronic 04/06/18 Increase Metoprolol to 50mg BID for better rate control. Dig 1.0 today Hospital Course Summary Disclaimer: The visit summary below is not to be considered part of the above Progress Note. Hospital Course: Impression S/P ORIF- right hip A-fibulation HTN MVR OA Plan Agree with admission to inpatient rehabilitation under the care of Dr. Chahal for postoperative strengthening Hospital services will continue to follow patient medically manage existing comorbidities during her stay. Monitor hemoglobin that she does have mild postoperative anemia, hemoglobin stable 11.4 Eliquis was 2.5 milligrams twice a day for chronic anticoagulation, monitor for evidence of bleeding. Tylenol, and Hur[place] as needed for pain control. Monitor blood pressure, continue on Lopressor 25 milligrams twice a day and Norvasc 5 milligrams daily MiraLAX and milk of magnesia are ordered for bowel motivation. However, patient is reluctant to utilize these that she does not want loose stools. Encourage patient to participate in unit activities for postoperative strengthening. Hospital services will continue to follow patient medically manage existing comorbidities. At time of discharge medical care will return to PCP in Dr. Grazyna Al <Kendall Heck - Last Filed: 04/21/18 10:16> Exam Vital signs: Temperature 98.0 F 04/07/18 16:00 Pulse Rate 71 04/07/18 16:00 Respiratory Rate 18 04/07/18 16:00 Blood Pressure 157/72 H 04/07/18 16:00 Pulse Oximetry 96 04/07/18 16:00 Inpatient Medications: Discontinued Medications Generic Name Dose Route Start Last Admin Trade Name Harriet PRN Reason Stop Dose Admin Acetaminophen 500 - 1,000 mg 03/31/18 15:17 04/07/18 16:00 Tylenol PO 1,000 mg Q6H PRN Administration Discomfort Hydrocodone Bitart/Acetaminophen 1 - 2 tab 03/31/18 15:17 04/06/18 20:30 Huron 5/325 PO 2 tab Q6H PRN Administration Pain Amlodipine Besylate 5 mg 04/01/18 09:00 04/04/18 08:18 Norvasc PO 5 mg DAILY [facility] Administration Apixaban 2.5 mg 03/31/18 21:00 04/07/18 08:46 Eliquis PO 2.5 mg BID [facility] Administration Aspirin 325 mg 04/01/18 09:00 Asa PO DAILY [facility] Brimonidine Tartrate 1 drop 03/31/18 21:00 04/07/18 08:46 Alphagan 0.2% Eye Drops OP 1 drop BID [facility] Administration Digoxin 125 mcg 04/01/18 09:00 04/07/18 08:45 Lanoxin PO 125 mcg DAILY [facility] Administration Digoxin 125 mcg 04/04/18 13:40 04/04/18 14:33 Lanoxin PO 04/04/18 13:41 125 mcg O ONE Administration Digoxin 125 mcg 04/05/18 09:00 04/05/18 08:06 Lanoxin PO 04/05/18 09:01 125 mcg O ONE Administration Lisinopril 5 mg 04/04/18 14:15 04/07/18 08:46 Prinivil PO 5 mg DAILY [facility] Administration Magnesium Hydroxide 30 ml 03/31/18 15:17 Mom PO DAILY PRN Constipation Melatonin 3 mg 03/31/18 21:00 03/31/18 20:32 Melatonin PO 3 mg HS [facility] Administration Melatonin 3 mg 04/01/18 20:25 04/06/18 20:29 Melatonin PO 2 mg HS PRN Administration Insomnia Metoprolol Tartrate 25 mg 03/31/18 17:30 04/06/18 08:42 Lopressor PO 25 mg BIDWM [facility] Administration Metoprolol Tartrate 50 mg 04/06/18 16:53 04/07/18 08:46 Lopressor PO 50 mg BIDWM [facility] Administration Morphine Sulfate 2 - 10 mg 03/31/18 15:17 Morphine Sulfate Inj IVP Q1H PRN Pain Pharmacy Consult 1 each 03/31/18 15:17 Pharmacy Consult - Fall Risk [facility] 03/31/18 15:18 ONE TIME ONE Polyethylene Glycol 17 gm 04/01/18 09:00 04/07/18 08:47 Miralax PO Not Given DAILY [facility] Senna/Docusate Sodium 2 tab 03/31/18 21:00 04/07/18 08:47 Senna Plus Tablet PO Not Given BID [facility] Sodium Chloride 10 ml 04/06/18 20:22 04/07/18 08:48 Iv Flush IV 10 ml PRN PRN Administration Flushing Results 04/07/18 13:11 04/04/18 04:16 Assessment and Plan - Assessment and Plan (1) Hip fracture requiring operative repair Problem details: Right subcapital hip fracture Status: Acute (2) A-fib Status: Chronic (3) Essential (primary) hypertension Status: Chronic (4) Mitral valve regurgitation Status: Chronic - Attestation Attestation Narrative: 04/21/18 10:16 Recommendation After examining the patient I agree with the above assessment. I am involved in the formulation of the patient's plan of care. Hospital Course Summary Disclaimer: The visit summary below is not to be considered part of the above Progress Note.
--- NOTE | 2018-04-06 14:14 | IRU Team Meeting ---
IRU Team Meeting - Nursing Bladder Assistive Devices Utilized:: Absorbent Pad Bladder Management Level of Assist: Modified Independent Bladder Frequency of Accidents: No accidents Number of Bladder Accidents: 0 Bowel Assistive Devices Utilized:: Medication Bowel Management Level of Assist: Modified Independent Bowel Frequency of Accidents: No accidents Number of Bowel Accidents: 0 Vital Signs: Vital Signs - 24 hr 04/05/18 16:00 04/05/18 20:59 04/06/18 00:00 Temperature 97.6 F 97.4 F Pulse Rate 68 67 65 Respiratory Rate 18 24 Blood Pressure 183/96 H 150/81 H Pulse Oximetry 94 95 04/06/18 08:00 04/06/18 08:41 Temperature 98.1 F Pulse Rate 87 130 H Respiratory Rate 14 Blood Pressure 110/75 Pulse Oximetry 96 Current Medications: Acetaminophen (Tylenol) 500 - 1,000 mg PO Q6H PRN PRN Reason: Discomfort Last Admin: 04/06/18 04:52 Dose: 1,000 mg Hydrocodone Bitart/Acetaminophen ([place] 5/325) 1 - 2 tab PO Q6H PRN PRN Reason: Pain Last Admin: 04/05/18 20:41 Dose: 2 tab Apixaban (Eliquis) 2.5 mg PO BID [facility] Last Admin: 04/06/18 08:43 Dose: 2.5 mg Brimonidine Tartrate (Alphagan 0.2% Eye Drops) 1 drop OP BID [facility] Last Admin: 04/06/18 08:44 Dose: 1 drop Digoxin (Lanoxin) 125 mcg PO DAILY [facility] Last Admin: 04/06/18 08:41 Dose: 125 mcg Lisinopril (Prinivil) 5 mg PO DAILY [facility] Last Admin: 04/06/18 08:43 Dose: 5 mg Magnesium Hydroxide (Mom) 30 ml PO DAILY PRN PRN Reason: Constipation Melatonin (Melatonin) 3 mg PO HS PRN PRN Reason: Insomnia Last Admin: 04/05/18 20:40 Dose: 3 mg Metoprolol Tartrate (Lopressor) 25 mg PO BIDWM [facility] Last Admin: 04/06/18 08:42 Dose: 25 mg Polyethylene Glycol (Miralax) 17 gm PO DAILY [facility] Last Admin: 04/06/18 09:43 Dose: Not Given Senna/Docusate Sodium (Senna Plus Tablet) 2 tab PO BID [facility] Last Admin: 04/06/18 08:42 Dose: 1 tab Current Medical Issues: Chronic atrial fibrillation with occasional episodes of rapid ventricular response, requirement for continued anticoagulation with Eliquis, hypertension, malnutrition, peripheral edema likely dependent in origin Comments: I certify that I personally led the interdisciplinary team meeting and agree with comments, barriers and goals indicated. Team meeting was held in the patient's room with the patient and the following family members present: multiple children and spouses, one son present via speakerphone Ms. Naranjo continues to have atrial fibrillation chronically. She has occasional episodes of rapid ventricular response. Her blood pressures are slightly elevated. She has had her digoxin dose modified by cardiology. Her contractility is normal. She does have some peripheral edema felt to be dependent in origin. In addition the patient has had her amlodipine discontinued and she is now on lisinopril with regard to blood pressure. - Dietary Patient has evidence of protein calorie malnutrition on the basis of poor oral intake, hypoalbuminemia and reduced pre-albumin level. Supplements are provided. - Physical Therapy Bed, Chair, Wheelchair Transfer Assist: Modified Independent Ambulation Ability: Modified Independent Ambulation Distance: 340 Wheelchair Propulsion Ability: Stand By Assist/Supervision, 1 Person Assist Wheelchair Propulsion Distance: 183 Stair Climbing Ability: Stand By Assist/Supervision Number of Steps Climbed: 20 Car Transfer Ability: Stand By Assist/Supervision Comments: Patient is able to ambulate 274 feet with modified independent level. She is using a front-wheeled walker but she will attempt use of cane. She is able to meet goals for ambulation distance, stairs, Tinetti balance and strength. - Occupational Therapy Eating Ability: Modified Independent Grooming Ability: Independent Bathing Ability: Stand By Assist/Supervision Upper Body Dressing Ability: Independent Lower Body Dressing Ability: Stand By Assist/Supervision Tub Transfer Assist: Patient Refuses Toileting Assist: Modified Independent Toilet Transfer Assist: Modified Independent Comments: She is able to perform activities of daily living routine with supervision to independently. She is independent for upper body dressing and supervision for lower body dressing. - Goals Physical Therapy Goals: 04/06/18. 1. Patient will attempt to advance from walker to cane. 2. Patient will increase confidence with all activites. 3. Discharge planning. Occupational Therapy Goals: OT goals 04/06/18: 1.) Lower body dressing with modified independence. 2.) Light meal preparation with modified independence. - Barriers to Discharge Barriers to Attaining Goals: Weakness (patient is concerned about strength and reduced endurance. To address this, fewer rest breaks and increased activity duration is provided.), Other (patient struggles with confidence. To address this, positive reinforcement, reassurance and verbal cues are provided by multiple disciplines.) - Care Plan Anticipated Length of Stay (days): 2 Anticipated DC Destination: Home, Self Care, Home Health Service I have led this team conference and agree with the plan. Interventions/Goals: Patient has done extremely well with regard to functional activities and safety. She is safe to return to her home environment. Patient and family are discussing whether they wish to involve respite care at a facility versus home health with family support and consideration of additional private pay (home care) assistance.
[2018-04-06] MEDS: MELATONIN 1 MG TABLET PO PRN (20:29)
[2018-04-06] MEDS: SALINE FLUSH 10ml SYRINGE IV PRN (20:30)
[2018-04-06] MEDS: HYDROCODONE/APAP 5mg/325mg TABLET PO PRN (20:30)
[2018-04-07] MEDS: ACETAMINOPHEN 500 MG TABLET PO PRN ×2 (06:55→16:00)
[2018-04-07 08:35] VITALS: TEMP 98
[2018-04-07] MEDS: DIGOXIN 125 MCG TABLET PO SCH (08:45)
[2018-04-07] MEDS: BRIMONIDINE 0.2% EYE DROPS 5ml OP SCH (08:46)
[2018-04-07] MEDS: LISINOPRIL 5 MG TABLET PO SCH (08:46)
[2018-04-07] MEDS: APIXABAN 2.5 MG TABLET PO SCH (08:46)
[2018-04-07] MEDS: SENNA + DOCUSATE TABLET PO SCH (08:47)
[2018-04-07] MEDS: POLYETHYL GLYCOL 3350 17gm PACKET PO SCH (08:47)
[2018-04-07] MEDS: SALINE FLUSH 10ml SYRINGE IV PRN (08:48)
--- NOTE | 2018-04-07 11:02 | Progress Note ---
- Date 04/07/18 Subjective: Pt seen sitting in her room after breakfast. States she put her eye drop in the wrong eye and this concerned her. Gave her reassurance re: this. She states her family is concerned that she is being dismissed tomorrow. She is doing well with therapy. No CP, SOA, f/c, n/v. She has concerns re: her heart rate. Cardiology has been adjusting her meds. Objective Vital signs: Temperature 98.0 F 04/07/18 08:00 Pulse Rate 115 H 04/07/18 08:45 Respiratory Rate 14 04/07/18 08:00 Blood Pressure 130/65 04/07/18 08:00 Pulse Oximetry 90 04/07/18 08:00 Rhythm: Atrial Fibrillation with Normal Ventricular Rate Height/Weight/BMI: Height 1.63 m Weight 47 kg Body Mass Index 18.3 - Constitutional Present: no acute distress, well nourished, well developed - Routine HEENT Exam Head: Present: normocephalic, atraumatic - Routine Respiratory Exam Present: CTA bilaterally. Absent: wheezes - Routine Cardiovascular Exam Present: murmur, irregular rhythm - Routine Abdominal Exam Present: soft, non distended, non tender - Routine Extremities Exam Present: edema (1-2+ pitting LE), normal capillary refill - Routine Skin Exam Present: dry, warm - Routine Neurological Exam Present: alert, oriented X3 - Routine Lymphatic Exam Lymphatic: Absent: adenopathy - Routine Psychiatric Exam Present: normal affect, cooperative Results - Labs CBC & Chem 7: 04/04/18 04:15 04/04/18 04:16 Assessment and Plan (1) S/P ORIF (open reduction internal fixation) fracture Current visit: Yes Status: Acute Assessment and Plan: Impression S/P ORIF- right hip A-fibulation with episodes of RVR. Hypertension MVR OA Pedal edema Plan Dr. Chahal plans to DC pt tomorrow. Cardiology following her afib with RVR. Rates recorded this am 110-135. At time of exam, pt HR is 69. Pt has been asymptomatic. Discussed with Kayli Sanon APRN with cardiology. She recommends pt be discharged on current heart meds and see Dr. Haro in 2 weeks for f-u. During her stay, her amlodipine was DC' d d/t ankle swelling and replaced with lisinopril. Her metoprolol was increased from 25 BID to 50mg BID. Her dig and Eliquis have been continued. Check CBC today to follow hgb as it has trended down since surgery. Dr. Chahal will alert Dr. Haro to changes made during pt's hospitalization. - Physician Narrative Narrative: Date: 04/07/18 Time: 1058 Hospital Course Summary Disclaimer: The visit summary below is not to be considered part of the above Progress Note.
--- NOTE | 2018-04-07 11:17 | IRU Progress Note ---
- Subjective/Serverity of Illness Date: 04/07/18 Ms. Naranjo was reassessed in her room with therapy present. She is doing exceptionally well with regard to therapy. Still awaiting decision from patient and family regarding placement. Patient states that she would like to go home. However she is aware that the family would like her to be observed more closely. Family and patient working with care management in this regard. Patient's edema remains in the lower extremities but also we will improve the further where she gets from the amlodipine. She has been on a modest fluid restriction of 1800 ML per day which she does not like. As nearly as I can determine this was started because of some hyponatremia. Her sodiums have now normalized and we will eliminate the fluid restriction. She denies any dyspnea or chest pain. Review of telemetry strips indicate adequate control of her rapid ventricular response at present. Exam Vital Signs: Temperature 98.0 F 04/07/18 08:00 Pulse Rate 115 H 04/07/18 08:45 Respiratory Rate 14 04/07/18 08:00 Blood Pressure 130/65 04/07/18 08:00 Pulse Oximetry 90 04/07/18 08:00 Height/Weight/BMI: Height 1.63 m Weight 47 kg Body Mass Index 18.3 - Constitutional Present: no acute distress, well developed, thin, cooperative - Routine HEENT Exam Eye: Present: EOMI ENT: Present: mucous membranes moist - Routine Neck Exam Present: supple - Routine Respiratory Exam Present: decreased breath sounds, CTA bilaterally. Absent: wheezes - Routine Cardiovascular Exam Present: S1, S2, irregularly irregular. Absent: murmur - Routine Abdominal Exam Present: soft, normoactive bowel sounds, non distended. Absent: tenderness - Routine Extremities Exam Present: edema (trace to 1+), normal capillary refill - Routine Skin Exam Present: dry, warm - Routine Neurological Exam Present: alert, oriented X3, CN II-XII intact - Routine Psychiatric Exam Present: normal affect, cooperative Results IRU - Labs Labs: Reviewed laboratory data and telemetry strips. Telemetry indicates slow ventricular response with her atrial fibrillation. No episodes of RVR identified at this time. Her digoxin level is 1.0. IRU A/P (1) S/P ORIF (open reduction internal fixation) fracture Current visit: Yes Status: Acute Patient continues to do extremely well with regard to functional activities. (2) A-fib Qualifiers: Atrial fibrillation type: chronic Qualified Code(s): I48.2 - Chronic atrial fibrillation Current visit: No Status: Chronic Atrial fibrillation continues now with somewhat slow ventricular response. Digoxin level I.0. Asymptomatic. 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 transplanted heart: [place] heart Qualified Code(s): I25.10 - Atherosclerotic heart disease of [place] coronary artery without angina pectoris Current visit: No Status: Chronic (4) Essential (primary) hypertension Current visit: No Status: Chronic Blood pressures are improved at the present time. Running in the 130 systolic range. (5) Edema Qualifiers: Edema type: localized Qualified Code(s): R60.0 - Localized edema Current visit: Yes Status: Acute (6) Malnutrition Qualifiers: Malnutrition type: protein-calorie malnutrition Current visit: Yes Status: Chronic DVT Prophylaxis: Eliquis Resuscitation Status: Full Code - Course Hospital Course: Rosendo Chahal MD: 04/03/18 11:08 Discomfort in presacral area with blanchable redness. Episode of RVR with atrial fib, now resolved to controlled response. She is on Eliquis. 04/04/18 10:39 Continues to have episodes of rapid ventricular response. Remains on Eliquis. Denies dyspnea. Progressing with therapy. Peripheral edema noted along with weight gain. 04/06/18 10:52 Was seen by cardiology. Digoxin increased temporarily. Amlodipine stopped due to edema. Lisinopril started for blood pressure. Doing very well with therapy but lacks confidence in going home. 04/07/18 11:18 Patient doing well from a functional standpoint. Initial reason for fluid restriction apparently was hyponatremia which has resolved. We will liberalize fluids. Awaiting decision from patient/family regarding placement. - Interventions to Obtain Goals PT Treatment Plan: Balance/Proprioception, Functional Activities, Gait Training , Patient/Family Education, Therapeutic Exercise OT Treatment Plan: ADL (Basic Care), Balance Training, IADL, Pt./Family Education, UE Functional Training Goals Progress/Modifications: Patient continues with a bit of edema. This should improve the further where she gets from amlodipine. In addition, the initial reason for the fluid restriction was likely some mild hyponatremia which has resolved. Patient does not likely fluid restriction we will liberalize this. She is doing extremely well from a functional standpoint and is felt to be safe for dismissal to her home. We are awaiting decision from patient and family regarding placement. Options of respite/assisted living versus home with home health are discussed.
--- NOTE | 2018-04-07 14:11 | Discharge Summary ---
Discharge Information Date of admission: 03/31/18 14:45 Anticipated date of discharge: 04/07/18 Attending Physician: Rosendo Chahal MD Primary care physician: Patricia Morocho DO Consults: 03/31/18 14:58 Physician Consult [CONS] Routine Consulting Provider: Mariah Hester Reason For Exam: medical management Ordering Provider has Notified [employer]: No 04/01/18 20:24 Dietary Consult [CONS] Routine Comment: prealbumin pending Reason For Exam: under weight 04/04/18 13:36 Physician Consult [CONS] Routine Consulting Provider: Kendall Heck Reason For Exam: a-fib with RVR Ordering Provider has Notified [employer]: Yes 04/06/18 16:29 Physician Consult [CONS] Routine Consulting Provider: Margaret Richmond Reason For Exam: placement options Ordering Provider has Notified [employer]: Yes - Discharge Diagnosis (1) S/P ORIF (open reduction internal fixation) fracture Status: Acute (2) A-fib Status: Chronic (3) Atherosclerotic heart disease of [place] coronary artery without angina pectoris Status: Chronic (4) Essential (primary) hypertension Status: Chronic (5) Edema Status: Acute (6) Malnutrition Status: Chronic 1. Status post open reduction internal fixation right hip fracture (right hip hemiarthroplasty performed previously) 2. Chronic atrial fibrillation with episodes of rapid ventricular response, improved 3. Benign essential hypertension 4. Malnutrition, protein calorie 5. Atherosclerotic heart disease, stable - Laboratory Labs: 04/07/18 13:11 04/04/18 04:16 History of Present Illness HPI: Ms. Naranjo is an 88 year-old female from [place], [place] who unfortunately fell at home on 03/28/2018. EMS was called and she was transferred to [place] emergency department and was subsequently transferred to [facility] where a right hip fracture was identified. She was admitted to the hospital and seen by the hospitalist service. Dr. Heck also saw her from cardiology prior to her surgery. Echocardiogram recently done as an outpatient on 03/07/2018 demonstrated a normal ejection fraction. Her atrial fibrillation had been recently diagnosed and she was recently placed on Eliquis. Surgery was temporarily postponed because of Eliquis. Patient was taken to surgery on 03/29/[address] Gustabo Soria. Because of a right femoral neck fracture. Procedure performed was right hip hemiarthroplasty. She tolerated the procedure well and is weightbearing as tolerated. Eliquis was restarted. Hemoglobin remained relatively stable. Postoperatively the patient did develop rapid ventricular response from her atrial fibrillation and metoprolol intravenously was required. She has a history of benign essential hypertension and reportedly history of remote myocardial infarction but no recent chest pain. She was stabilized while on acute care and transferred to inpatient rehabilitation on 03/31/2018 for a comprehensive approach to her recovery. Hospital Course This is a general summary of the patient's hospital course. For more details refer to the complete medical record. The patient was admitted to acute inpatient rehabilitation because of the need for both occupational therapy and physical therapy as well as medical needs of following her atrial fibrillation with rapid ventricular response and hypertension. Eliquis was continued. She was followed by the hospitalist service as well as by Dr. Chahal, medical administrator of [facility], Dr. Heck also followed her while on acute inpatient rehabilitation. Initial hemoglobin was 11.4. Follow-up was 10.9 and upon dismissal it was 12.4. Her white count remained normal during the time of her stay on rehabilitation. Her creatinine was normal at 0.5. Potassium was 4.0. Her serum albumin was low at 2.6 and her pre-albumin low at 5.7. She was substantially underweight with a BMI of 17.8. In this regard dietitian followed the patient and offered supplements. The following levels of functional competence are to be considered preliminary information. The reader is encouraged to refer to actual therapy notes and reports for specific details. The patient was followed by physical therapy while on acute inpatient rehabilitation. At the conclusion of her stay, the following functional competencies were identified: She was instructed in hip precautions and was able to verbalize these. She was modified independent for transfers upon dismissal. Car transfers required standby assistance. She was able to ambulate with a front-wheeled walker over 300 feet at modified independent level. She was able to climb 12 steps with standby assistance. The patient was followed by occupational therapy while on acute inpatient rehabilitation. At the conclusion of her stay, the following functional competencies were identified: Bathing was able to be performed at modified independent level. She was independent for upper body dressing and modified independent for lower body dressing. The patient had an area of blanchable redness on her presacral area at the time of admission to inpatient rehabilitation. At the time of dismissal the area of redness had improved and was still blanchable. Precautions were taken on inpatient rehabilitation to protect the area in terms of offloading weight from this area as well as using a barrier cream. She was given additional doses of digoxin during the time of her stay on inpatient rehabilitation. The patient had some mild lower extremity edema and in this regard amlodipine was discontinued by cardiology. She was started on lisinopril 5 mg daily. She will follow-up with Dr. Haro with regard to her cardiac issues. At the time of dismissal she was felt to be stable. Various options were discussed with her family including home with home health, respite care etc. Hospital course: Impression S/P ORIF- right hip A-fibulation HTN MVR OA Plan Agree with admission to inpatient rehabilitation under the care of Dr. Chahal for postoperative strengthening Hospital services will continue to follow patient medically manage existing comorbidities during her stay. Monitor hemoglobin that she does have mild postoperative anemia, hemoglobin stable 11.4 Eliquis was 2.5 milligrams twice a day for chronic anticoagulation, monitor for evidence of bleeding. Tylenol, and [address] as needed for pain control. Monitor blood pressure, continue on Lopressor 25 milligrams twice a day and Norvasc 5 milligrams daily MiraLAX and milk of magnesia are ordered for bowel motivation. However, patient is reluctant to utilize these that she does not want loose stools. Encourage patient to participate in unit activities for postoperative strengthening. Hospital services will continue to follow patient medically manage existing comorbidities. At time of discharge medical care will return to PCP in [place] , Dr. Grazyna Yu Time spent with patient: greater than 35 minutes Resuscitation Status: Full Code Discharge Plan - Med Rec/Dispo Referrals/Follow Up: Gustabo Soria MD [Physician] - (f/u [address] Soria) lAize Haro MD [Physician] - (see Dr Haro for f-u in 1-2 weeks.) Nette Yu MD [Physician] - (Dr. Pilar Yu on 05/03/18 at 11:20 am for Hosp. follow-up. [facility]. [address] [place] [id number]) Prescriptions: New PEG 3350 17gm PACKET [Miralax] 17 gm PO DAILY packet Milk of Magnesia [Mom] 30 ml PO DAILY PRN udc PRN Reason: Constipation Lisinopril [Prinivil] 5 mg PO DAILY #30 tab Melatonin 3 mg PO HS PRN tab PRN Reason: Insomnia Metoprolol Tartrate 50 mg PO BID #60 tab Hydrocodone/APAP 5/325 [[address] 5/325] 1 - 2 tab PO Q6H PRN #30 tab PRN Reason: Pain Continue Digoxin 0.125 mg PO AM Brimonidine 0.2% Eye Drops [Alphagan 0.2% Eye Drops] 1 drop OP BID Cyanocobalamin (Vitamin B-12) [B-12] 500 mcg PO DAILY Cholecalciferol (Vitamin D3) [Vitamin D3] 1 cap PO DAILY Eliquis 2.5 mg PO BID Vit C/Ascorbate Calcium,Sodium 500 mg PO AM Fish Oil 1,000 mg Softgel 1,000 mg PO AM Glucosamine 1 tab PO BID Discontinued Metoprolol Tartrate 25 mg PO BID Amlodipine 2.5 mg PO AM Aspirin 1 tab PO DAILY - Disposition 01 Discharged Home, Self-Care - Dismissal Complete Discharge Instructions are:: Complete
--- NOTE | 2018-04-07 14:17 | Letter to Referring Physician ---
Dear Josiah, This is a brief note to bring you up-to-date on the status of Connie Naranjo and her stay on the acute inpatient rehabilitation unit at [facility]. As you are likely aware, this patient was admitted to [facility] acute care on 03/28/18 for repair of right hip fracture. She was seen by Dr. Heck preoperatively. Patient underwent right hip hemiarthroplasty by Dr. Gustabo Soria on 03/29/2018 without complications. She did have some episodes of rapid ventricular response from her atrial fibrillation in the immediate postoperative timeframe requiring intravenous metoprolol. The patient was stabilized while on the acute level and admitted to inpatient rehabilitation unit at [facility] on March 31, 2018. While on inpatient rehabilitation, this patient was seen by occupational therapy and physical therapy and improved overall in their functional ability. We also monitored and managed the patient's atrial fib with RVR while on Acute Rehab. Please see a copy of the history and physical examination as well as discharge summary faxed separately for further details. From a functional standpoint the patient was felt to be stable at the time of dismissal. The family requested that she be placed in a facility at the time of dismissal. Thank you for allowing us to be involved in this nice patient's care. Please contact me directly should you have any questions regarding their stay on the inpatient rehabilitation unit. Sincerely, Rosendo Chahal M.D.
--- NOTE | 2018-04-07 14:21 | Letter to Referring Physician ---
Dear Dr. Haro, This is a brief note to bring you up-to-date on the status of Connie Naranjo. She fell at home on 03/28/2018 resulting in a right hip fracture. She was admitted to acute care at [facility] were Dr. Gustabo Soria performed a right hip hemiarthroplasty on 03/29/2018. She was seen in consultation preoperatively by Dr. Heck. She was felt to be stable for the surgery. Postoperatively she did have some rapid ventricular response from her atrial fibrillation requiring additional doses of metoprolol IV. She was subsequently admitted to inpatient rehabilitation unit at [facility] on March 31, 2018. She tolerated therapy well and made significant functional gains. However she continued to have episodes of rapid ventricular response from her atrial fibrillation. I wanted to let you know that Dr. Heck and his land surveyor assistant and adjusted her medications. She is going home on metoprolol 50 mg twice daily, lisinopril 5 mg daily and digoxin 0.125 mg daily and no amlodipine due to a bit of edema. Digoxin level at the time dismissal is 1.0. Creatinine is normal and potassium is normal. I just wanted you to be aware of her cardiac situation for your records. She will follow-up with you as an outpatient. Thank you for allowing us to be involved in this nice patient's care. Please contact me directly should you have any questions regarding their stay on the inpatient rehabilitation unit. Sincerely, Rosendo Chahal M.D.
[2018-04-07 16:24] VITALS: BP 157/72; PULSE 71; RESP 18; O2SAT 96
== END 2018-04-07 16:35 | DRG 560 ==
PROVIDERS: ADMIT Internal Medicine; ATTEND Internal Medicine